=== PATIENT | male | born 1960 | race Caucasian/White ===

== ENCOUNTER 2023-10-30 20:50 | Inpatient (IN) ==
[2023-10-30] MEDS: SODIUM CHLORIDE 0.9% 1,000 ML IV ONE (21:30)
[2023-10-30 21:35] LABS: iSTAT Creatinine 2.3 mg/dl (0.6-1.3); iSTAT Hemoglobin 10.9 g/dl (14.0-18.0); iSTAT Ionized Calcium 1.13 mmol/l (1.12-1.32); iSTAT Potassium 4.7 mmol/L (3.3-5.0)
[2023-10-30] MEDS: PANTOprazole 80 MG in DEXTROSE 5% 100 ML IV ONE (21:40)
[2023-10-30 21:44] LABS: Basophils # (auto) 0.06 K/uL (0.00-0.20); Basophils % (auto) 0.4 %; Hematocrit (blood only) 36.4 % (42.0-52.0); Hemoglobin 11.6 g/dl (14.0-18.0); Immature Granulocytes % (auto) 0.7 %; Lymphocytes # (auto) 2.14 K/uL (1.20-3.40); Lymphocytes % (auto) 14.4 %; Mean Corpuscular Hemoglobin 28.4 pg (25.0-34.0); Mean Corpuscular Hgb Conc 31.9 g/dL (32.0-36.0); Mean Corpuscular Volume 89.2 fL (80.0-100.0); Mean Platelet Volume 10.4 fL (9.4-12.4); Monocytes # (auto) 1.03 K/uL (0.11-0.59); Monocytes % (auto) 6.9 %; Neutrophils # (auto) 11.53 K/uL (1.40-6.50); Neutrophils % (auto) 77.6 %; Platelet Count 217 K/uL (130-400); RDW Coefficient of Variation 14.6 % (11.5-14.5); RDW Standard Deviation 46.5 fL (36.4-46.3); Red Blood Count 4.08 M/uL (4.70-6.10); White Blood Count 14.86 K/ul (4.8-10.8)
[2023-10-30] MEDS: PANTOprazole 40 MG in DEXTROSE 5% MINI-B 100 ML IV SCH (22:01)
[2023-10-30 22:02] LABS: Albumin Level 3.5 gm/dl (3.4-5.0); BUN Creatinine Ratio 28.7 (10-20); Bilirubin,Total 0.4 mg/dl (0.2-1.0); Calcium 8.3 mg/dl (8.6-10.3); Creatinine Clr Calc Pharmacy 44.8 ml/min; Est GFR (African American) 36.7 ml/min; Est GFR (Non-African American) 31.7 ml/min; Magnesium 1.7 mg/dl (1.7-2.4); Potassium 4.8 mmol/L (3.5-5.1); Total Protein 5.6 gm/dl (6.0-8.3)
[2023-10-30 22:08] LABS: Troponin I High Sensitivity 19.8 pg/ml (0-20)
[2023-10-30] MEDS: PANTOPRAZOLE BOLUS/DRIP IV STA (22:09)
[2023-10-30 22:10] LABS: INR 1.1 (0.9-1.1); Partial Thromboplastin Ratio 0.9; Partial Thromboplastin Time 24 Seconds (21-31); Prothrombin Time 11.5 Seconds (9.0-12.0)
--- NOTE | 2023-10-30 22:59 | CT Scan Report ---
Exam(s): CT ABDOMEN + PELVIS Without Contrast EXAM: CT Abdomen and Pelvis Without Intravenous Contrast CLINICAL HISTORY: Reason for exam: ro sbo. TECHNIQUE: Axial computed tomography images of the abdomen and pelvis without intravenous contrast. CTDI is 28.12 mGy and DLP is 1576.4 mGy-cm. Automated exposure control was utilized for the study. A dose lowering technique was utilized adhering to the principles of ALARA. COMPARISON: None. FINDINGS: Lung bases: Bilateral lower lobe atelectasis, right more than left. Heart: Unremarkable. No cardiomegaly. No significant pericardial effusion. Normal cardiac size with coronary artery calcifications. ABDOMEN: Liver: Unremarkable. Gallbladder and bile ducts: Unremarkable. No calcified stones. No ductal dilation. Pancreas: Unremarkable. No ductal dilation. Spleen: Unremarkable. No splenomegaly. Adrenals: Unremarkable. No mass. Kidneys and ureters: See below. Stomach and bowel: Postoperative changes with sutures along the small bowel loops. Fluid within the colon. No obstruction. No mucosal thickening. PELVIS: Appendix: No findings to suggest acute appendicitis. Bladder: Unremarkable. No stones. Reproductive: Unremarkable as visualized. ABDOMEN and PELVIS: Intraperitoneal space: Unremarkable. No free air. No significant fluid collection. Bones/joints: Status post right-sided hip prosthesis placement. There is lucency surrounding the femoral component, clinical significance indeterminate, differential diagnosis including loosening although difficult to assess due to incomplete inclusion in the field of view. 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 Anterolisthesis of L5 on S1 (10 mm) with bilateral pars defect of L5. No acute fracture. No dislocation. Soft tissues: Unremarkable. Vasculature: Atherosclerotic disease of aorta with no aneurysm. Tiny stone versus vascular calcification within the lower pole of the left kidney measuring 1.7 mm. Otherwise normal left kidney. Normal right kidney. Lymph nodes: Unremarkable. No enlarged lymph nodes. IMPRESSION: 1. No bowel obstruction. Fluid within the colon which may be associated with sequela of enteritis versus malabsorption, correlation with history of diarrheal state recommended. 2. Vascular calcification versus tiny stone within the left kidney measuring 1.7 mm. No hydronephrosis. Remainder of abdominal viscera are unremarkable. Electronically signed by: Jade Cano MD 10/30/23 22:58 PM
[2023-10-30] MEDS: SODIUM CHLORIDE 0.9% 500 ML IV ONE (23:15)
[2023-10-30] MEDS: SODIUM CHLORIDE 0.9% 500 ML IV SCH (23:18)
--- NOTE | 2023-10-30 23:54 | History & Physical Report ---
Date of Service October 30, 2023 Assessment & Plan (1) Abdominal pain: Plan: 63-year-old male presenting with 4 weeks of intermittent abdominal pain. Patient has had multiple hospital stays in the past several weeks, uncertain of details at this point. Hypotensive on arrival now improved after IV fluids. He does have a marked leukocytosis with WBC = 14.86. Laboratory evidence of dehydration. LFTs, lipase within normal limits. CT of the abdomen suggestive of diarrheal state, no additional findings of concern Admit to medical telemetry Maintain 2 large-bore IVs Continue IV fluids with LR at 125 mL/h x 2 L Check stool BioFire panel Check random cortisol -Continue Reglan 10 mg p.o. before every meal/at bedtime (2) GIB (gastrointestinal bleeding): Plan: Report of visible blood in diarrhea by EMS. Hemoccult performed in the ER which was positive. Patient has been started on Protonix bolus and drip by the ER. He denies nausea/vomiting/abdominal pain or hematemesis. Suspect lower GI bleed, possible infection/colitis, possible diverticulosis. Hemoglobin acceptable at 11.6 Maintain 2 large-bore IVs Trend CBC every 8 hours Will continue Protonix drip for now Blood consent obtainedno need for transfusion at this point GI consultation appreciated (3) CAD (coronary artery disease): Plan: Chronic. Patient denies chest pain Will hold aspirin and Plavix for now Hold atenolol Hold lisinopril Continue rosuvastatin History of Present Illness Chief Complaint: abdominal pain Primary Care Provider: Roselyn Reich is a 63-year-old male with history of coronary artery disease status post 2 stents placed 6-7 years ago, hypertension and arthritis presenting from home with severe abdominal pain. Patient with history of strangulated hernia with resection of 6 inches of his bowel over 30 years ago. Has not had any abdominal surgeries since. Patient has been having episodes of abdominal pain intermittently over the last 4 weeks. He has had multiple hospital stays over the last 4 weeks at outside facilities. First at [facility] with subsequent transfer to [place], then at [facility] with subsequent transfer to [place] and most recently on 10/26/2023 at [facility]. No records available at this time for these hospitalizations. Patient states that he has been dealing with "blocked bowels" for the last year. He reports episodes of severe lower abdominal pain, 10/10 as well as feeling of fullness. Poor appetite and decreased oral intake. Chills and sweats as well, generalized weakness and multiple episodes of diarrhea. Patient denies obvious blood in his stool. He denies nausea/vomiting at this time but has had associated vomiting with these episodes in the past. Patient hypotensive on arrival to the ER with blood pressure of 73/48. He was administered 2 L of crystalloid fluid with improvement of blood pressure to 94/67. He was told that his diarrhea had visible blood by EMS. Hemoccult was performed which was positive ER course: Protonix bolus and drip, normal saline Allergies Allergy/AdvReac Type Severity Reaction Status Date / Time adhesive Allergy Intermediate SKIN Verified 10/30/23 21:35 IRRITATION Home Medications Medication Instructions Recorded Confirmed Type aspirin 81 mg tablet,delayed 81 mg PO DAILY 10/30/23 10/30/23 History release atenolol 25 mg tablet 25 mg PO DAILY 10/30/23 10/30/23 History clopidogrel 75 mg tablet 75 mg PO DAILY 10/30/23 10/30/23 History duloxetine 60 mg capsule,delayed 60 mg PO DAILY 10/30/23 10/30/23 History release gabapentin 100 mg capsule 100 mg PO TID 10/30/23 10/30/23 History lisinopril 5 mg tablet 10 mg PO DAILY 10/30/23 10/30/23 History metoclopramide HCl 10 mg tablet 10 mg PO ACHS 10/30/23 10/30/23 History polyethylene glycol 3350 17 17 g PO DAILY 10/30/23 10/30/23 History gram/dose oral powder (Miralax) rosuvastatin 10 mg tablet 10 mg PO HS 10/30/23 10/30/23 History sennosides 8.6 mg tablet (senna) 17.2 mg PO QPM 10/30/23 10/30/23 History Past Med/Surg History Medical History (Updated 10/31/23 @ 03:04 by Eli Rodriguez DO) SBO (small bowel obstruction) HLD (hyperlipidemia) HTN (hypertension) Surgical History (Updated 10/31/23 @ 03:01 by Eli Rodriguez DO) History of total knee arthroplasty History of total hip arthroplasty S/P colectomy Family History (Updated 10/31/23 @ 03:02 by Eli Rodriguez DO) Other Family history non-contributory Social History Smoking Status: Former smoker Feels Safe at Home: Yes Review of Systems Review of Systems: All systems reviewed & are unremarkable except as noted in HPI & below Physical Exam Physical Exam: General: patient resting comfortably, NAD, non-toxic in appearance, AA&O x 4 Skin: warm, dry, intact, no rashes or lesions HEENT: NC/AT, PERRL, EOMI, anicteric sclera, conjunctiva without injection, external ear normal to inspection and nontender, nares patent, dry mucus mem branes, dentition intact, no oropharyngeal lesions, neck supple, trachea midline, no LAD, no thyromegaly, no JVD Heart: +S1/S2, regular, no m/r/g Lungs: equal air entry bilaterally, no rales/rhonchi/wheezes Abd: +BS, soft, obese, tender in the lower abdomen without rebound/guarding, no organomegaly or ascites Ext: warm, 2+ pulses in UE/LE bilaterally, no clubbing/cyanosis or edema Neuro: nonfocal, patient AA&O x 4, speech intact, no facial droop, moving all extremities on command with equal strength 5/5 Results & Data Results & Data Vital Signs (Past 12 Hours) Vital Signs Temp Pulse Pulse Resp BP BP Pulse Ox 10/30/23 23:26 78 22 99 10/30/23 23:21 73 24 96/68 L 97 10/30/23 23:16 74 24 90/57 L 98 10/30/23 23:11 77 23 93/62 L 100 10/30/23 23:05 77 22 66/42 L 91 10/30/23 23:00 73 24 94/67 L 97 10/30/23 22:04 73 20 99 10/30/23 22:00 74 21 109/58 L 96 10/30/23 21:11 76 10/30/23 21:03 36.5 C 77 24 73/48 L 92 O2 Del Method 10/30/23 23:26 10/30/23 23:21 10/30/23 23:16 10/30/23 23:11 10/30/23 23:05 10/30/23 23:00 10/30/23 22:04 Room Air 10/30/23 22:00 Room Air 10/30/23 21:11 10/30/23 21:03 Room Air Laboratory Results Laboratory Results WBC 14.86 K/ul (4.8-10.8) H 10/30/23 21:13 RBC 4.08 M/uL (4.70-6.10) L 10/30/23 21:13 Hgb 11.6 g/dl (14.0-18.0) L 10/30/23 21:13 POC Hgb 10.9 g/dl (14.0-18.0) L 10/30/23 21:23 Hct 36.4 % (42.0-52.0) L 10/30/23 21:13 POC Hct 32 % (42-52) L 10/30/23 21:23 MCV 89.2 fL (80.0-100.0) 10/30/23 21:13 MCH 28.4 pg (25.0-34.0) 10/30/23 21:13 MCHC 31.9 g/dL (32.0-36.0) L 10/30/23 21:13 RDW Std Deviation 46.5 fL (36.4-46.3) H 10/30/23 21:13 RDW Coeff of Teresa 14.6 % (11.5-14.5) H 10/30/23 21:13 Plt Count 217 K/uL (130-400) 10/30/23 21:13 MPV 10.4 fL (9.4-12.4) 10/30/23 21:13 Immature Gran % (Auto) 0.7 % 10/30/23 21:13 Neut % (Auto) 77.6 % 10/30/23 21:13 Lymph % (Auto) 14.4 % 10/30/23 21:13 [place] % (Auto) 6.9 % 10/30/23 21:13 Eos % (Auto) 0.0 % 10/30/23 21:13 Baso % (Auto) 0.4 % 10/30/23 21:13 Neut # (Auto) 11.53 K/uL (1.40-6.50) H 10/30/23 21:13 Lymph # (Auto) 2.14 K/uL (1.20-3.40) 10/30/23 21:13 [place] # (Auto) 1.03 K/uL (0.11-0.59) H 10/30/23 21:13 Eos # (Auto) 0.00 K/uL (0.00-0.50) 10/30/23 21:13 Baso # (Auto) 0.06 K/uL (0.00-0.20) 10/30/23 21:13 Immature Gran # (Auto) 0.10 K/uL (0.01-0.20) 10/30/23 21:13 PT 11.5 Seconds (9.0-12.0) 10/30/23 21:13 INR 1.1 (0.9-1.1) 10/30/23 21:13 APTT 24 Seconds (21-31) 10/30/23 21:13 PTT Ratio 0.9 10/30/23 21:13 POC Sodium 142 mmol/L (135-144) 10/30/23 21: Sodium 142 mmol/L (136-145) 10/30/23 21:13 POC Potassium 4.7 mmol/L (3.3-5.0) 10/30/23 21:23 Potassium 4.8 mmol/L (3.5-5.1) 10/30/23 21:13 POC Chloride 110 mmol/L (101-112) 10/30/23 21: Chloride 110 mmol/L (98-107) H 10/30/23 21:13 Carbon Dioxide 22 mmol/L (21-32) 10/30/23 21:13 POC Total CO2 22 mmol/L (24-31) L 10/30/23 21:23 Anion Gap 10 (3-11) 10/30/23 21:13 POC Anion Gap 16.0 mmol/L (16-25) 10/30/23 21:23 POC BUN 58 mg/dl (7-18) H 10/30/23 21:23 BUN 62 mg/dl (6-23) H 10/30/23 21:13 Creatinine 2.16 mg/dl (0.6-1.4) H 10/30/23 21:13 POC Creatinine 2.3 mg/dl (0.6-1.3) H 10/30/23 21:23 Est Cr Clr Drug Dosing 44.8 ml/min 10/30/23 21:13 Est GFR ( Amer) 36.7 ml/min 10/30/23 21:13 Est GFR (Non-Af Amer) 31.7 ml/min 10/30/23 21:13 BUN/Creatinine Ratio 28.7 (10-20) H 10/30/23 21:13 Glucose 101 mg/dl (70-99(Fasting)) H 10/30/23 21:13 POC Glucose (other) 89 mg/dl (70-99) 10/30/23 21:23 Lactate 1.9 mmol/L (0.4-2.0) 10/30/23 22:07 Calcium 8.3 mg/dl (8.6-10.3) L 10/30/23 21:13 POC Ioniz Calcium [place] 1.13 mmol/l (1.12-1.32) 10/30/23 21:23 Magnesium 1.7 mg/dl (1.7-2.4) 10/30/23 21:13 Total Bilirubin 0.4 mg/dl (0.2-1.0) 10/30/23 21:13 Direct Bilirubin 0.0 mg/dl (0-0.2) 10/30/23 21:13 AST 11 U/L (13-39) L 10/30/23 21:13 ALT 15 U/L (7-52) 10/30/23 21:13 Alkaline Phosphatase 69 U/L (34-104) 10/30/23 21:13 Troponin I High Sens 19.8 pg/ml (0-20) 10/30/23 21:13 Total Protein 5.6 gm/dl (6.0-8.3) L 10/30/23 21:13 Albumin 3.5 gm/dl (3.4-5.0) 10/30/23 21:13 Lipase 41 U/L (11-82) 10/30/23 21:13 Urine Color Yellow 10/31/23 Unknown Urine Appearance Clear (Clear) 10/31/23 Unknown Urine pH 5.0 (4.5-7.5) 10/31/23 Unknown Ur Specific [place] 1.019 (1.000-1.030) 10/31/23 Unknown Urine Protein Trace (Negative) H 10/31/23 Unknown Urine Glucose (UA) 1+ (Negative) H 10/31/23 Unknown Urine Ketones Trace (Negative) H 10/31/23 Unknown Urine Blood Negative (Negative) 10/31/23 Unknown Urine Nitrite Negative (Negative) 10/31/23 Unknown Urine Bilirubin Negative (Negative) 10/31/23 Unknown Urine Urobilinogen Negative (Negative) 10/31/23 Unknown Ur Leukocyte Esterase Negative (Negative) 10/31/23 Unknown Urine WBC (Auto) 1-5 /hpf (0-5) 10/31/23 Unknown Urine RBC (Auto) 0-4 /hpf (0-4) 10/31/23 Unknown U Hyaline Cast (Auto) 5-10 /lpf (0-5) H 10/31/23 Unknown U Epithel Cells (Auto) 10-20 /lpf (0-5) H 10/31/23 Unknown Urine Bacteria (Auto) Negative (Negative) 10/31/23 Unknown Blood Type A Positive 10/30/23 21:13 Antibody Screen NEGATIVE 10/30/23 21:13 Impressions Abdomen/Pelvis CT 10/30/23 21:30 Exam(s): CT ABDOMEN + PELVIS Without Contrast EXAM: CT Abdomen and Pelvis Without Intravenous Contrast CLINICAL HISTORY: Reason for exam: ro sbo. TECHNIQUE: Axial computed tomography images of the abdomen and pelvis without intravenous contrast. CTDI is 28.12 mGy and DLP is 1576.4 mGy-cm. Automated exposure control was utilized for the study. A dose lowering technique was utilized adhering to the principles of ALARA. COMPARISON: None. FINDINGS: Lung bases: Bilateral lower lobe atelectasis, right more than left. Heart: Unremarkable. No cardiomegaly. No significant pericardial effusion. Normal cardiac size with coronary artery calcifications. ABDOMEN: Liver: Unremarkable. Gallbladder and bile ducts: Unremarkable. No calcified stones. No ductal dilation. Pancreas: Unremarkable. No ductal dilation. Spleen: Unremarkable. No splenomegaly. Adrenals: Unremarkable. No mass. Kidneys and ureters: See below. Stomach and bowel: Postoperative changes with sutures along the small bowel loops. Fluid within the colon. No obstruction. No mucosal thickening. PELVIS: Appendix: No findings to suggest acute appendicitis. Bladder: Unremarkable. No stones. Reproductive: Unremarkable as visualized. ABDOMEN and PELVIS: Intraperitoneal space: Unremarkable. No free air. No significant fluid collection. Bones/joints: Status post right-sided hip prosthesis placement. There is lucency surrounding the femoral component, clinical significance indeterminate, differential diagnosis including loosening although difficult to assess due to incomplete inclusion in the field of view. 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 Anterolisthesis of L5 on S1 (10 mm) with bilateral pars defect of L5. No acute fracture. No dislocation. Soft tissues: Unremarkable. Vasculature: Atherosclerotic disease of aorta with no aneurysm. Tiny stone versus vascular calcification within the lower pole of the left kidney measuring 1.7 mm. Otherwise normal left kidney. Normal right kidney. Lymph nodes: Unremarkable. No enlarged lymph nodes. IMPRESSION: 1. No bowel obstruction. Fluid within the colon which may be associated with sequela of enteritis versus malabsorption, correlation with history of diarrheal state recommended. 2. Vascular calcification versus tiny stone within the left kidney measuring 1.7 mm. No hydronephrosis. Remainder of abdominal viscera are unremarkable. Electronically signed by: Jade Cano MD 10/30/23 22:58 PM ECG Additional Comments: EKG per my interpretation with normal sinus rhythm at 77 bpm, normal axis, CO = 152, QRS = 98, QTc = 447, T wave abnormalities. No previous EKGs available for comparison PG Care Time/CCT Total # of Minutes Spent Total Time Spent with Patient: Total time spent is greater than 50% in coordination of care (as documented) at patient's floor/unit and/or counseling patient: Coding Level of Care Code 33176 INT INP/OBS CARE 3/75MIN Diagnoses Abdominal pain R10.9 GIB (gastrointestinal bleeding) K92.2 CAD (coronary artery disease) I25.10
--- NOTE | 2023-10-31 00:16 | Emergency Department Note ---
History of Present Illness General Chief complaint: Abdominal Pain Stated complaint: ABDOMINAL PAIN, GI BLEED Time Seen by Provider: 10/30/23 21:17 History of Present Illness Provider Complaint: + melena Onset (ago): 1 day(s) Pain Consistency: + constant Maximum Pain Intensity: 4 Current Pain Intensity: 4 Relieved By: + none Exacerbated By: + bowel movement Context: + history of GI bleed; no known esophageal varices or no anticoagulant use Associated symptoms: + abdominal pain; no nausea, no vomiting or no shortness of breath HPI Narrative: Patient reports he was recently admitted to [facility] for small bowel obstruction. Home Medications Medication Instructions Recorded Confirmed Type aspirin 81 mg tablet,delayed 81 mg PO DAILY 10/30/23 10/30/23 History release atenolol 25 mg tablet 25 mg PO DAILY 10/30/23 10/30/23 History clopidogrel 75 mg tablet 75 mg PO DAILY 10/30/23 10/30/23 History duloxetine 60 mg capsule,delayed 60 mg PO DAILY 10/30/23 10/30/23 History release gabapentin 100 mg capsule 100 mg PO TID 10/30/23 10/30/23 History lisinopril 5 mg tablet 10 mg PO DAILY 10/30/23 10/30/23 History metoclopramide HCl 10 mg tablet 10 mg PO ACHS 10/30/23 10/30/23 History polyethylene glycol 3350 17 17 g PO DAILY 10/30/23 10/30/23 History gram/dose oral powder (Miralax) rosuvastatin 10 mg tablet 10 mg PO HS 10/30/23 10/30/23 History sennosides 8.6 mg tablet (senna) 17.2 mg PO QPM 10/30/23 10/30/23 History Allergies Allergy/AdvReac Type Severity Reaction Status Date / Time adhesive Allergy Intermediate SKIN Verified 10/30/23 21:35 IRRITATION Past Med/Surg History Medical History SBO (small bowel obstruction) HLD (hyperlipidemia) HTN (hypertension) Surgical History S/P colectomy Social History Smoking Status: Former smoker Feels Safe at Home: Yes Physical Exam 2 Vital Signs: Vital Signs - 24 hr 10/30/23 21:03 10/30/23 21:11 10/30/23 22:00 Temperature 36.5 C Temperature Source Oral Pulse Rate 77 76 Pulse Rate [Caroti d] 74 Pulse Rhythm Regular Pulse Rhythm [Shelley tid] Regular Pulse Strength Normal Pulse Strength [Ca rotid] Normal Respiratory Rate 24 21 Respiratory Effort / Characteristics Non-Labored Non-Labored Sponta neous Respiratory Depth Normal Normal Respiratory Patter n Regular Blood Pressure 73/48 L Blood Pressure [Le ft Arm] 109/58 L Blood Pressure Rosa n 56 Blood Pressure Rosa n [Left Arm] 75 Blood Pressure Pos ition Sitting Pulse Oximetry 92 96 Oxygen Delivery Me thod Room Air Room Air Sepsis Recent Feve r Within 48 Hours No Sepsis New/Unexpla ined Change in Men lien Status N/A Sepsis Action Take n by Nursing No Action Required 10/30/23 22:04 10/30/23 23:00 10/30/23 23:05 Temperature Temperature Source Pulse Rate 73 73 77 Pulse Rate [Caroti d] Pulse Rhythm Regular Pulse Rhythm [Shelley tid] Pulse Strength Pulse Strength [Ca rotid] Respiratory Rate 20 24 22 Respiratory Effort / Characteristics Respiratory Depth Respiratory Patter n Blood Pressure 94/67 L 66/42 L Blood Pressure [Le ft Arm] Blood Pressure Rosa n 76 50 Blood Pressure Rosa n [Left Arm] Blood Pressure Pos ition Pulse Oximetry 99 97 91 Oxygen Delivery Me thod Room Air Sepsis Recent Feve r Within 48 Hours Sepsis New/Unexpla ined Change in Men lien Status Sepsis Action Take n by Nursing 10/30/23 23:11 10/30/23 23:16 10/30/23 23:21 Temperature Temperature Source Pulse Rate 77 74 73 Pulse Rate [Caroti d] Pulse Rhythm Pulse Rhythm [Shelley tid] Pulse Strength Pulse Strength [Ca rotid] Respiratory Rate 23 24 24 Respiratory Effort / Characteristics Respiratory Depth Respiratory Patter n Blood Pressure 93/62 L 90/57 L 96/68 L Blood Pressure [Le ft Arm] Blood Pressure Rosa n 72 68 77 Blood Pressure Rosa n [Left Arm] Blood Pressure Pos ition Pulse Oximetry 100 98 97 Oxygen Delivery Me thod Sepsis Recent Feve r Within 48 Hours Sepsis New/Unexpla ined Change in Men lien Status Sepsis Action Take n by Nursing 10/30/23 23:26 Temperature Temperature Source Pulse Rate 78 Pulse Rate [Caroti d] Pulse Rhythm Pulse Rhythm [Shelley tid] Pulse Strength Pulse Strength [Ca rotid] Respiratory Rate 22 Respiratory Effort / Characteristics Respiratory Depth Respiratory Patter n Blood Pressure Blood Pressure [Le ft Arm] Blood Pressure Rosa n Blood Pressure Rosa n [Left Arm] Blood Pressure Pos ition Pulse Oximetry 99 Oxygen Delivery Me thod Sepsis Recent Feve r Within 48 Hours Sepsis New/Unexpla ined Change in Men lien Status Sepsis Action Take n by Nursing Physical Exam: Physical Exam GENERAL: Ill-appearing. HENT: Exam performed. - Head: Normocephalic and atraumatic. EYES: Conjunctivae and EOM are normal. Pupils are equal, round, and reactive to light. Right eye exhibits no discharge. Left eye exhibits no discharge. No scleral icterus. NECK: Normal range of motion. Neck supple. No JVD present. CV: Normal rate, regular rhythm, normal heart sounds and intact distal pulses. There is no peripheral edema. Palpable radial pulses bue. PULM/CHEST: Effort normal and breath sounds normal. No respiratory distress. No stridor. He has no wheezes. He has no rales. ABD: The abdomen is soft. Distended. There is no tenderness. There is no rebound, no guarding. Hemoccult positive. NEURO: Motor and sensation grossly intact. SKIN: Pale. Course Course 2116: The patient was evaluated in room B8. A complete history and physical exam was performed Cardiac monitoring: An order was placed for continuous cardiac monitoring. The monitor shows a rate of 100 with sinus rhythm interpreted by me Called to bedside by nursing. Patient is hypotensive with blood pressure 72/57. Patient was moved to resuscitation bay. Large-bore IV access was obtained and IV fluid bolus was started on the patient. [id number] creatinine greater than 2. Will obtain CT of the abdomen pelvis without contrast. Patient be started on Protonix bolus and drip. 2200: Patient's blood pressure improving with IV fluids. 230: Vital signs stable. Labs show stable hemoglobin. CT of the abdomen pelvis shows no small bowel obstruction. Hemoglobin 11.6. [facility]. Administered Medications Pantoprazole Sodium 40 mg/ (Dextrose) 100 mls @ 20 mls/hr IV Q5H AMBROSE Stop: 11/29/23 21:44 Last Admin: 10/30/23 22:01 Dose: 8 mg/hr, 20 mls/hr Documented By: CHARLIE Sodium Chloride (Nss) 500 mls @ 125 mls/hr IV .Q4H AMBROSE Stop: 11/29/23 23:14 Last Admin: 10/30/23 23:18 Dose: 125 mls/hr Documented By: JOHN Discontinued Medications Sodium Chloride (Nss) 1,000 mls @ 999 mls/hr IV .Q1H1M ONE Stop: 10/30/23 22:18 Last Infusion: 10/30/23 22:31 Dose: Infused Documented By: Admin: 10/30/23 21:30 Dose: 999 mls/hr Documented By: CHARLIE Pantoprazole Sodium 80 mg/ (Dextrose) 120 mls @ 480 mls/hr IV NOW ONE Stop: 10/30/23 21:38 Last Infusion: 10/30/23 21:55 Dose: Infused Documented By: Admin: 10/30/23 21:40 Dose: 480 mls/hr Documented By: CHARLIE Sodium Chloride (Nss) 500 mls @ 999 mls/hr IV .Q31M ONE Stop: 10/30/23 23:39 Last Admin: 10/30/23 23:15 Dose: 999 mls/hr Documented By: JOHN Pantoprazole Sodium (Pantoprazole Bolus/Drip) 1 each IV NOW STA Stop: 10/30/23 21:25 Last Admin: 10/30/23 22:09 Dose: Not Given Documented By: CHARLIE Medical Decision Making Laboratory Data Attestation: I reviewed the patient's lab results. 10/30/23 21:13 10/30/23 21:13 Lab Results 10/30/23 10/30/23 10/30/23 Range/Units 21:13 21:23 22:07 WBC 14.86 H (4.8-10.8) K/ul RBC 4.08 L (4.70-6.10) M/uL Hgb 11.6 L (14.0-18.0) g/dl POC Hgb 10.9 L (14.0-18.0) g/dl Hct 36.4 L (42.0-52.0) % POC Hct 32 L (42-52) % MCV 89.2 (80.0-100.0) fL MCH 28.4 (25.0-34.0) pg MCHC 31.9 L (32.0-36.0) g/dL RDW Std Deviation 46.5 H (36.4-46.3) fL RDW Coeff of Teresa 14.6 H (11.5-14.5) % Plt Count 217 (130-400) K/uL MPV 10.4 (9.4-12.4) fL Immature Gran % (Auto) 0.7 % Neut % (Auto) 77.6 % Lymph % (Auto) 14.4 % [place] % (Auto) 6.9 % Eos % (Auto) 0.0 % Baso % (Auto) 0.4 % Neut # (Auto) 11.53 H (1.40-6.50) K/uL Lymph # (Auto) 2.14 (1.20-3.40) K/uL [place] # (Auto) 1.03 H (0.11-0.59) K/uL Eos # (Auto) 0.00 (0.00-0.50) K/uL Baso # (Auto) 0.06 (0.00-0.20) K/uL Immature Gran # (Auto) 0.10 (0.01-0.20) K/uL PT 11.5 (9.0-12.0) Seconds INR 1.1 (0.9-1.1) APTT 24 (21-31) Seconds PTT Ratio 0.9 POC Sodium 142 (135-144) mmol/L Sodium 142 (136-145) mmol/L POC Potassium 4.7 (3.3-5.0) mmol/L Potassium 4.8 (3.5-5.1) mmol/L POC Chloride 110 (101-112) mmol/L Chloride 110 H (98-107) mmol/L Carbon Dioxide 22 (21-32) mmol/L POC Total CO2 22 L (24-31) mmol/L Anion Gap 10 (3-11) POC Anion Gap 16.0 (16-25) mmol/L POC BUN 58 H (7-18) mg/dl BUN 62 H (6-23) mg/dl Creatinine 2.16 H (0.6-1.4) mg/dl POC Creatinine 2.3 H (0.6-1.3) mg/dl Est Cr Clr Drug Dosing 44.8 ml/min Est GFR ( Amer) 36.7 ml/min Est GFR (Non-Af Amer) 31.7 ml/min BUN/Creatinine Ratio 28.7 H (10-20) Glucose 101 H (70-99(Fasting)) mg/dl POC Glucose (other) 89 (70-99) mg/dl Lactate 1.9 (0.4-2.0) mmol/L Calcium 8.3 L (8.6-10.3) mg/dl POC Ioniz Calcium Edna 1.13 (1.12-1.32) mmol/l Magnesium 1.7 (1.7-2.4) mg/dl Total Bilirubin 0.4 (0.2-1.0) mg/dl Direct Bilirubin 0.0 (0-0.2) mg/dl AST 11 L (13-39) U/L ALT 15 (7-52) U/L Alkaline Phosphatase 69 (34-104) U/L Troponin I High Sens 19.8 (0-20) pg/ml Total Protein 5.6 L (6.0-8.3) gm/dl Albumin 3.5 (3.4-5.0) gm/dl Lipase 41 (11-82) U/L Blood Type A Positive Antibody Screen NEGATIVE Imaging Data Radiologist's Impression: Abdomen/Pelvis CT 10/30/23 21:30 Exam(s): CT ABDOMEN + PELVIS Without Contrast EXAM: CT Abdomen and Pelvis Without Intravenous Contrast CLINICAL HISTORY: Reason for exam: ro sbo. TECHNIQUE: Axial computed tomography images of the abdomen and pelvis without intravenous contrast. CTDI is 28.12 mGy and DLP is 1576.4 mGy-cm. Automated exposure control was utilized for the study. A dose lowering technique was utilized adhering to the principles of ALARA. COMPARISON: None. FINDINGS: Lung bases: Bilateral lower lobe atelectasis, right more than left. Heart: Unremarkable. No cardiomegaly. No significant pericardial effusion. Normal cardiac size with coronary artery calcifications. ABDOMEN: Liver: Unremarkable. Gallbladder and bile ducts: Unremarkable. No calcified stones. No ductal dilation. Pancreas: Unremarkable. No ductal dilation. Spleen: Unremarkable. No splenomegaly. Adrenals: Unremarkable. No mass. Kidneys and ureters: See below. Stomach and bowel: Postoperative changes with sutures along the small bowel loops. Fluid within the colon. No obstruction. No mucosal thickening. PELVIS: Appendix: No findings to suggest acute appendicitis. Bladder: Unremarkable. No stones. Reproductive: Unremarkable as visualized. ABDOMEN and PELVIS: Intraperitoneal space: Unremarkable. No free air. No significant fluid collection. Bones/joints: Status post right-sided hip prosthesis placement. There is lucency surrounding the femoral component, clinical significance indeterminate, differential diagnosis including loosening although difficult to assess due to incomplete inclusion in the field of view. 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 Anterolisthesis of L5 on S1 (10 mm) with bilateral pars defect of L5. No acute fracture. No dislocation. Soft tissues: Unremarkable. Vasculature: Atherosclerotic disease of aorta with no aneurysm. Tiny stone versus vascular calcification within the lower pole of the left kidney measuring 1.7 mm. Otherwise normal left kidney. Normal right kidney. Lymph nodes: Unremarkable. No enlarged lymph nodes. IMPRESSION: 1. No bowel obstruction. Fluid within the colon which may be associated with sequela of enteritis versus malabsorption, correlation with history of diarrheal state recommended. 2. Vascular calcification versus tiny stone within the left kidney measuring 1.7 mm. No hydronephrosis. Remainder of abdominal viscera are unremarkable. Electronically signed by: Jade Cano MD 10/30/23 22:58 PM ECG Data Attestation: I personally reviewed and interpreted this ECG as follows: Rate (beats per minute): 77 Rhythm: normal sinus Findings: + T-wave inversion (Leads II, III and aVF); no ST depression, no ST elevation or no prolonged QT MDM Narrative 2117: The patient was evaluated in room B8. A complete history and physical exam was performed Cardiac monitoring: An order was placed for continuous cardiac monitoring. The monitor shows a rate of 100 with sinus rhythm interpreted by me Called to bedside by nursing. Patient is hypotensive with blood pressure 72/57. Patient was moved to resuscitation bay. Large-bore IV access was obtained and IV fluid bolus was started on the patient. [id number] creatinine greater than 2. Will obtain CT of the abdomen pelvis without contrast. Patient be started on Protonix bolus and drip. 2200: Patient's blood pressure improving with IV fluids. 2305: Vital signs stable. Labs show stable hemoglobin. CT of the abdomen pelvis shows no small bowel obstruction. Hemoglobin 11.6. [facility]. Impression & Plan GIB (gastrointestinal bleeding) Critical Care Time Critical Care Time: Yes Total Critical Care Time: 62 I have personally spent greater than 62 minutes of critical care time in the direct management of this patient. This includes bedside care, interpretation of diagnostic studies, and testing, discussion with consultants, patient, and family members, and other required patient management activities. This 62 minutes is in excess of all separately billable procedures. Discharge Plan Visit Data Chief Complaint: Abdominal Pain Stated Complaint: ABDOMINAL PAIN, GI BLEED ED Provider: Wil Brady Discharge Problem: GIB (gastrointestinal bleeding) Patient Disposition: Admitted As Inpatient Forms Stand Alone Forms: [facility] Prescriptions Prescriptions: No Action sennosides [senna] 8.6 mg tablet 17.2 mg PO QPM atenolol 25 mg tablet 25 mg PO DAILY clopidogrel 75 mg tablet 75 mg PO DAILY aspirin 81 mg tablet,delayed release (DR/EC) 81 mg PO DAILY lisinopril 5 mg tablet 10 mg PO DAILY gabapentin 100 mg capsule 100 mg PO TID polyethylene glycol 3350 [Miralax] 17 gram/dose Powder 17 g PO DAILY metoclopramide HCl 10 mg tablet 10 mg PO ACHS rosuvastatin 10 mg tablet 10 mg PO HS duloxetine 60 mg capsule,delayed release(DR/EC) 60 mg PO DAILY Referrals Referrals: Roselyn Lange PA-C [Primary Care Provider] -
[2023-10-31 01:40] LABS: Appearance Urine Clear (Clear); Bacteria Urine Automated Negative (Negative); Bilirubin Urine Negative (Negative); Blood Urine Negative (Negative); Color Urine Yellow; Glucose Urine UA 1+ (Negative); Ketones Urine Trace (Negative); Leukocyte Esterase Urine Negative (Negative); Nitrite Urine Negative (Negative); Protein Urine Trace (Negative); RBC Urine Automated 0-4 /hpf (0-4); Specific Gravity Urine 1.019 (1.000-1.030); Urobilinogen Urine Negative (Negative)
[2023-10-31] MEDS ORDERED: ONDANSETRON INJ 2 MG/ML 2 ML VIAL IV PRN (02:55)
[2023-10-31] MEDS: LACTATED RINGER'S 1,000 ML IV SCH (04:20)
[2023-10-31 04:48] LABS: Hematocrit (blood only) 31.2 % (42.0-52.0); Mean Corpuscular Hemoglobin 28.3 pg (25.0-34.0); Mean Corpuscular Hgb Conc 32.1 g/dL (32.0-36.0); Mean Corpuscular Volume 88.4 fL (80.0-100.0); Mean Platelet Volume 10.4 fL (9.4-12.4); Platelet Count 159 K/uL (130-400); RDW Coefficient of Variation 14.6 % (11.5-14.5); RDW Standard Deviation 46.5 fL (36.4-46.3); Red Blood Count 3.53 M/uL (4.70-6.10); White Blood Count 10.29 K/ul (4.8-10.8)
[2023-10-31 05:00] LABS: BUN Creatinine Ratio 40.5 (10-20); Calcium 7.8 mg/dl (8.6-10.3); Creatinine Clr Calc Pharmacy 52.3 ml/min; Est GFR (African American) 44.2 ml/min; Est GFR (Non-African American) 38.2 ml/min; Potassium 4.7 mmol/L (3.5-5.1)
--- NOTE | 2023-10-31 07:43 | XRay Report ---
XR chest 1V portable CLINICAL HISTORY: vomitting TECHNIQUE: Single frontal radiograph of the chest was obtained. Comparison: None available at the time of this dictation. FINDINGS: No lines and tubes are seen. The cardiomediastinal silhouette is normal. Lungs are underinflated but clear. No evidence of pleural effusion or pneumothorax. IMPRESSION: No acute chest disease. ACT 112: Negative or not required by law. Electronically signed by: Dieter Poon M.D. 10/31/2023 7:42 AM
[2023-10-31] MEDS: METOCLOPRAMIDE HCL 10 MG TABLET PO SCH (08:31)
[2023-10-31] MEDS: GABAPENTIN 100 MG CAP PO SCH (08:32)
[2023-10-31] MEDS: DULoxetine HCL 60 MG CAP PO SCH (08:32)
[2023-10-31 13:00] LABS: Hematocrit (blood only) 30.9 % (42.0-52.0); Hemoglobin 9.9 g/dl (14.0-18.0); Mean Corpuscular Hemoglobin 28.1 pg (25.0-34.0); Mean Corpuscular Volume 87.8 fL (80.0-100.0); Mean Platelet Volume 10.4 fL (9.4-12.4); Platelet Count 165 K/uL (130-400); RDW Coefficient of Variation 14.7 % (11.5-14.5); RDW Standard Deviation 46.7 fL (36.4-46.3); Red Blood Count 3.52 M/uL (4.70-6.10); White Blood Count 10.53 K/ul (4.8-10.8)
[2023-10-31 15:10] LABS: Adenovirus F 40/41 PCR Not Detected (NotDetected); Astrovirus PCR Not Detected (NotDetected); Campylobacter PCR Not Detected (NotDetected); Cryptosporidium PCR Not Detected (NotDetected); Cyclospora cayetanensis PCR Not Detected (NotDetected); Entamoeba histolytica PCR Not Detected (NotDetected); Enteroaggregative E.coli(EAEC) Not Detected (NotDetected); Enteropathogenic E.coli (EPEC) Not Detected (NotDetected); Enterotoxigenic E.coli (ETEC) Not Detected (NotDetected); Giardia lamblia PCR Not Detected (NotDetected); Norovirus GI/GII PCR Not Detected (NotDetected); Plesiomonas shigelloides PCR Not Detected (NotDetected); Rotavirus A PCR Not Detected (NotDetected); Salmonella PCR Not Detected (NotDetected); Sapovirus PCR Not Detected (NotDetected); Shiga-like Toxin E.coli (STEC) Not Detected (NotDetected); Shigella/Enteroinvasive E.coli Not Detected (NotDetected); Vibrio cholerae PCR Not Detected (NotDetected); Vibrio species PCR Not Detected (NotDetected); Yersinia enterocolitica PCR Not Detected (NotDetected)
--- NOTE | 2023-10-31 16:51 | Gastrointestinal Consultation ---
Date of Consultation October 31, 2023 Assessment & Plan (1) Abdominal pain: Pleasant man with over 1 1/2 years of churning abdominal pain with nausea and vomiting who has been in multiple hospitals without an answer. I don't really have a feel for what is going on and really would like to know what has been done to him on all of these hospitalizations and visits to his PCP. I do think he will need EGD and colonoscopy but he took plavix up until yesterday. I think we need to give the plavix a few days to wear off before proceeding. I would like to know if he really has had a small bowel series because I do think that will be important in his evaluation. History of Present Illness Reason for Consultation: ? lower GI bleed Attending Physician: Jenny Rain MD History of Present Illness 63 year old man who says he has been "battling his stomach" for a year and a half. He has been in four different hospitals for this but despite having stomach issues has never seen a kit planner for this problem. He describes a "churning" in his stomach that gets so bad he just can't take it. With this he feels like his stools are loose. Blood was found in his stool in the ED. He says he will also get nauseated and then on occasion will vomit with this issue. Initially it wasn't every day but now it has progressed to where he feels like it is daily. He has lost 20# with this. He says he "can't eat like he used to" because he gets sick. He also feels like he has a fever when he lays down and then he gets chills and sweats. He has had multiple CT scans and describes what sounds like an UGI with SBFT that he says was normal. He takes plavix daily for clots. He does not have records with him and does not have a good understanding of what has been done for him in the past. He did have to have "6 inches" of his small bowel removed for an incarcerated hernia in the past. CT in the ER was not conclusive as to etiology for his pain. Allergies Allergy/AdvReac Type Severity Reaction Status Date / Time adhesive Allergy Intermediate SKIN Verified 10/30/23 21:35 IRRITATION Home Medications Medication Instructions Recorded Confirmed Type aspirin 81 mg tablet,delayed 81 mg PO DAILY 10/30/23 10/30/23 History release atenolol 25 mg tablet 25 mg PO DAILY 10/30/23 10/30/23 History clopidogrel 75 mg tablet 75 mg PO DAILY 10/30/23 10/30/23 History duloxetine 60 mg capsule,delayed 60 mg PO DAILY 10/30/23 10/30/23 History release gabapentin 100 mg capsule 100 mg PO TID 10/30/23 10/30/23 History lisinopril 5 mg tablet 10 mg PO DAILY 10/30/23 10/30/23 History metoclopramide HCl 10 mg tablet 10 mg PO ACHS 10/30/23 10/30/23 History polyethylene glycol 3350 17 17 g PO DAILY 10/30/23 10/30/23 History gram/dose oral powder (Miralax) rosuvastatin 10 mg tablet 10 mg PO HS 10/30/23 10/30/23 History sennosides 8.6 mg tablet (senna) 17.2 mg PO QPM 10/30/23 10/30/23 History Patient History Medical History SBO (small bowel obstruction) HLD (hyperlipidemia) HTN (hypertension) Surgical History History of total knee arthroplasty History of total hip arthroplasty S/P colectomy Family History Other Family history non-contributory Social History Smoking Status: Former smoker Communication Ability: Effective Feels Safe at Home: Yes Assistive Devices: Crutches Review of Systems Review of Systems: All systems reviewed & are unremarkable except as noted in HPI & below Physical Exam Constitutional: WD/WN, vitals as above Neck: trachea midline, no thyromegaly Respiratory: normal respiratory effort, lungs clear to auscultation Cardiovascular: RRR, no murmur, no edema Gastrointestinal (Abdomen): normal bowel sounds, soft, nontender, no hepatosplenomegaly Results & Data Vital Signs (Past 12 Hours) Vital Signs Pulse Pulse Resp BP BP Pulse Ox O2 Del Method 10/31/23 16:46 74 15 135/84 100 10/31/23 13:00 70 14 122/68 98 Room Air 10/31/23 08:37 68 19 137/84 95 Room Air 10/31/23 07:12 68 10/31/23 06:42 62 18 103/60 98 Room Air 10/31/23 05:00 68 19 115/83 Laboratory Results 10/31/23 10/31/23 10/31/23 Range/Units Unknown 13:04 12:36 WBC 10.53 (4.8-10.8) K/ul RBC 3.52 L (4.70-6.10) M/uL Hgb 9.9 L (14.0-18.0) g/dl POC Hgb (14.0-18.0) g/dl Hct 30.9 L (42.0-52.0) % POC Hct (42-52) % MCV 87.8 (80.0-100.0) fL MCH 28.1 (25.0-34.0) pg MCHC 32.0 (32.0-36.0) g/dL RDW Std Deviation 46.7 H (36.4-46.3) fL RDW Coeff of Teresa 14.7 H (11.5-14.5) % Plt Count 165 (130-400) K/uL MPV 10.4 (9.4-12.4) fL Immature Gran % (Auto) % Neut % (Auto) % Lymph % (Auto) % [place] % (Auto) % Eos % (Auto) % Baso % (Auto) % Neut # (Auto) (1.40-6.50) K/uL Lymph # (Auto) (1.20-3.40) K/uL [place] # (Auto) (0.11-0.59) K/uL Eos # (Auto) (0.00-0.50) K/uL Baso # (Auto) (0.00-0.20) K/uL Immature Gran # (Auto) (0.01-0.20) K/uL PT (9.0-12.0) Seconds INR (0.9-1.1) APTT (21-31) Seconds PTT Ratio POC Sodium (135-144) mmol/L Sodium (136-145) mmol/L POC Potassium (3.3-5.0) mmol/L Potassium (3.5-5.1) mmol/L POC Chloride (101-112) mmol/L Chloride (98-107) mmol/L Carbon Dioxide (21-32) mmol/L POC Total CO2 (24-31) mmol/L Anion Gap (3-11) POC Anion Gap (16-25) mmol/L POC BUN (7-18) mg/dl BUN (6-23) mg/dl Creatinine (0.6-1.4) mg/dl POC Creatinine (0.6-1.3) mg/dl Est Cr Clr Drug Dosing ml/min Est GFR ( Amer) ml/min Est GFR (Non-Af Amer) ml/min BUN/Creatinine Ratio (10-20) Glucose (70-99(Fasting)) mg/dl POC Glucose (other) (70-99) mg/dl Lactate (0.4-2.0) mmol/L Calcium (8.6-10.3) mg/dl POC Ioniz Calcium [place] (1.12-1.32) mmol/l Magnesium (1.7-2.4) mg/dl Total Bilirubin (0.2-1.0) mg/dl Direct Bilirubin (0-0.2) mg/dl AST (13-39) U/L ALT (7-52) U/L Alkaline Phosphatase (34-104) U/L Troponin I High Sens (0-20) pg/ml Total Protein (6.0-8.3) gm/dl Albumin (3.4-5.0) gm/dl Lipase (11-82) U/L Random Cortisol mcg/dl Urine Color Yellow Urine Appearance Clear (Clear) Urine pH 5.0 (4.5-7.5) Ur Specific [place] 1.019 (1.000-1.030) Urine Protein Trace H (Negative) Urine Glucose (UA) 1+ H (Negative) Urine Ketones Trace H (Negative) Urine Blood Negative (Negative) Urine Nitrite Negative (Negative) Urine Bilirubin Negative (Negative) Urine Urobilinogen Negative (Negative) Ur Leukocyte Esterase Negative (Negative) Urine WBC (Auto) 1-5 (0-5) /hpf Urine RBC (Auto) 0-4 (0-4) /hpf U Hyaline Cast (Auto) 5-10 H (0-5) /lpf U Epithel Cells (Auto) 10-20 H (0-5) /lpf Urine Bacteria (Auto) Negative (Negative) Stl C. cayetanensis PCR Not Detected (NotDetected) Stool Rotavirus A PCR Not Detected (NotDetected) Stl Adenov F 40/41 PCR Not Detected (NotDetected) Stool Astrovirus (PCR) Not Detected (NotDetected) Stool Campylobacter PCR Not Detected (NotDetected) Stl C. diff Tox B Gene Negative Cdiff Gene (Neg) Stool Cryptosporidium PCR Not Detected (NotDetected) Stl E.coli Shiga Tox PCR Not Detected (NotDetected) Stl Enterotoxigenic E PCR Not Detected (NotDetected) Stool EPEC (PCR) Not Detected (NotDetected) Stool EAEC (PCR) Not Detected (NotDetected) Stl E. histolytica PCR Not Detected (NotDetected) Stool Giardia Lamblia PCR Not Detected (NotDetected) Stool Salmonella PCR Not Detected (NotDetected) Stool Sapovirus (PCR) Not Detected (NotDetected) Stl P. shigelloides PCR Not Detected (NotDetected) Stl Shigella/EIEC PCR Not Detected (NotDetected) St Y.enterocolitica PCR Not Detected (NotDetected) Stool Vibrio (PCR) Not Detected (NotDetected) Stl Vibrio cholerae PCR Not Detected (NotDetected) Stl Norovirus GI/GII PCR Not Detected (NotDetected) Blood Type Antibody Screen 10/31/23 10/30/23 10/30/23 Range/Units 04:34 22:07 21:23 WBC 10.29 (4.8-10.8) K/ul RBC 3.53 L (4.70-6.10) M/uL Hgb 10.0 L (14.0-18.0) g/dl POC Hgb 10.9 L (14.0-18.0) g/dl Hct 31.2 L (42.0-52.0) % POC Hct 32 L (42-52) % MCV 88.4 (80.0-100.0) fL MCH 28.3 (25.0-34.0) pg MCHC 32.1 (32.0-36.0) g/dL RDW Std Deviation 46.5 H (36.4-46.3) fL RDW Coeff of Teresa 14.6 H (11.5-14.5) % Plt Count 159 (130-400) K/uL MPV 10.4 (9.4-12.4) fL Immature Gran % (Auto) % Neut % (Auto) % Lymph % (Auto) % [place] % (Auto) % Eos % (Auto) % Baso % (Auto) % Neut # (Auto) (1.40-6.50) K/uL Lymph # (Auto) (1.20-3.40) K/uL [place] # (Auto) (0.11-0.59) K/uL Eos # (Auto) (0.00-0.50) K/uL Baso # (Auto) (0.00-0.20) K/uL Immature Gran # (Auto) (0.01-0.20) K/uL PT (9.0-12.0) Seconds INR (0.9-1.1) APTT (21-31) Seconds PTT Ratio POC Sodium 142 (135-144) mmol/L Sodium 141 (136-145) mmol/L POC Potassium 4.7 (3.3-5.0) mmol/L Potassium 4.7 (3.5-5.1) mmol/L POC Chloride 110 (101-112) mmol/L Chloride 114 H (98-107) mmol/L Carbon Dioxide 20 L (21-32) mmol/L POC Total CO2 22 L (24-31) mmol/L Anion Gap 7 (3-11) POC Anion Gap 16.0 (16-25) mmol/L POC BUN 58 H (7-18) mg/dl BUN 75 H (6-23) mg/dl Creatinine 1.85 H D (0.6-1.4) mg/dl POC Creatinine 2.3 H (0.6-1.3) mg/dl Est Cr Clr Drug Dosing 52.3 ml/min Est GFR ( Amer) 44.2 ml/min Est GFR (Non-Af Amer) 38.2 ml/min BUN/Creatinine Ratio 40.5 H (10-20) Glucose 81 (70-99(Fasting)) mg/dl POC Glucose (other) 89 (70-99) mg/dl Lactate 1.9 (0.4-2.0) mmol/L Calcium 7.8 L (8.6-10.3) mg/dl POC Ioniz Calcium Edna 1.13 (1.12-1.32) mmol/l Magnesium (1.7-2.4) mg/dl Total Bilirubin (0.2-1.0) mg/dl Direct Bilirubin (0-0.2) mg/dl AST (13-39) U/L ALT (7-52) U/L Alkaline Phosphatase (34-104) U/L Troponin I High Sens (0-20) pg/ml Total Protein (6.0-8.3) gm/dl Albumin (3.4-5.0) gm/dl Lipase (11-82) U/L Random Cortisol 10.86 mcg/dl Urine Color Urine Appearance (Clear) Urine pH (4.5-7.5) Ur Specific [place] (1.000-1.030) Urine Protein (Negative) Urine Glucose (UA) (Negative) Urine Ketones (Negative) Urine Blood (Negative) Urine Nitrite (Negative) Urine Bilirubin (Negative) Urine Urobilinogen (Negative) Ur Leukocyte Esterase (Negative) Urine WBC (Auto) (0-5) /hpf Urine RBC (Auto) (0-4) /hpf U Hyaline Cast (Auto) (0-5) /lpf U Epithel Cells (Auto) (0-5) /lpf Urine Bacteria (Auto) (Negative) Stl C. cayetanensis PCR (NotDetected) Stool Rotavirus A PCR (NotDetected) Stl Adenov F 40/41 PCR (NotDetected) Stool Astrovirus (PCR) (NotDetected) Stool Campylobacter PCR (NotDetected) Stl C. diff Tox B Gene (Neg) Stool Cryptosporidium PCR (NotDetected) Stl E.coli Shiga Tox PCR (NotDetected) Stl Enterotoxigenic E PCR (NotDetected) Stool EPEC (PCR) (NotDetected) Stool EAEC (PCR) (NotDetected) Stl E. histolytica PCR (NotDetected) Stool Giardia Lamblia PCR (NotDetected) Stool Salmonella PCR (NotDetected) Stool Sapovirus (PCR) (NotDetected) Stl P. shigelloides PCR (NotDetected) Stl Shigella/EIEC PCR (NotDetected) St Y.enterocolitica PCR (NotDetected) Stool Vibrio (PCR) (NotDetected) Stl Vibrio cholerae PCR (NotDetected) Stl Norovirus GI/GII PCR (NotDetected) Blood Type Antibody Screen 10/30/23 Range/Units 21:13 WBC 14.86 H (4.8-10.8) K/ul RBC 4.08 L (4.70-6.10) M/uL Hgb 11.6 L (14.0-18.0) g/dl POC Hgb (14.0-18.0) g/dl Hct 36.4 L (42.0-52.0) % POC Hct (42-52) % MCV 89.2 (80.0-100.0) fL MCH 28.4 (25.0-34.0) pg MCHC 31.9 L (32.0-36.0) g/dL RDW Std Deviation 46.5 H (36.4-46.3) fL RDW Coeff of Teresa 14.6 H (11.5-14.5) % Plt Count 217 (130-400) K/uL MPV 10.4 (9.4-12.4) fL Immature Gran % (Auto) 0.7 % Neut % (Auto) 77.6 % Lymph % (Auto) 14.4 % [place] % (Auto) 6.9 % Eos % (Auto) 0.0 % Baso % (Auto) 0.4 % Neut # (Auto) 11.53 H (1.40-6.50) K/uL Lymph # (Auto) 2.14 (1.20-3.40) K/uL [place] # (Auto) 1.03 H (0.11-0.59) K/uL Eos # (Auto) 0.00 (0.00-0.50) K/uL Baso # (Auto) 0.06 (0.00-0.20) K/uL Immature Gran # (Auto) 0.10 (0.01-0.20) K/uL PT 11.5 (9.0-12.0) Seconds INR 1.1 (0.9-1.1) APTT 24 (21-31) Seconds PTT Ratio 0.9 POC Sodium (135-144) mmol/L Sodium 142 (136-145) mmol/L POC Potassium (3.3-5.0) mmol/L Potassium 4.8 (3.5-5.1) mmol/L POC Chloride (101-112) mmol/L Chloride 110 H (98-107) mmol/L Carbon Dioxide 22 (21-32) mmol/L POC Total CO2 (24-31) mmol/L Anion Gap 10 (3-11) POC Anion Gap (16-25) mmol/L POC BUN (7-18) mg/dl BUN 62 H (6-23) mg/dl Creatinine 2.16 H (0.6-1.4) mg/dl POC Creatinine (0.6-1.3) mg/dl Est Cr Clr Drug Dosing 44.8 ml/min Est GFR ( Amer) 36.7 ml/min Est GFR (Non-Af Amer) 31.7 ml/min BUN/Creatinine Ratio 28.7 H (10-20) Glucose 101 H (70-99(Fasting)) mg/dl POC Glucose (other) (70-99) mg/dl Lactate (0.4-2.0) mmol/L Calcium 8.3 L (8.6-10.3) mg/dl POC Ioniz Calcium Edna (1.12-1.32) mmol/l Magnesium 1.7 (1.7-2.4) mg/dl Total Bilirubin 0.4 (0.2-1.0) mg/dl Direct Bilirubin 0.0 (0-0.2) mg/dl AST 11 L (13-39) U/L ALT 15 (7-52) U/L Alkaline Phosphatase 69 (34-104) U/L Troponin I High Sens 19.8 (0-20) pg/ml Total Protein 5.6 L (6.0-8.3) gm/dl Albumin 3.5 (3.4-5.0) gm/dl Lipase 41 (11-82) U/L Random Cortisol mcg/dl Urine Color Urine Appearance (Clear) Urine pH (4.5-7.5) Ur Specific [place] (1.000-1.030) Urine Protein (Negative) Urine Glucose (UA) (Negative) Urine Ketones (Negative) Urine Blood (Negative) Urine Nitrite (Negative) Urine Bilirubin (Negative) Urine Urobilinogen (Negative) Ur Leukocyte Esterase (Negative) Urine WBC (Auto) (0-5) /hpf Urine RBC (Auto) (0-4) /hpf U Hyaline Cast (Auto) (0-5) /lpf U Epithel Cells (Auto) (0-5) /lpf Urine Bacteria (Auto) (Negative) Stl C. cayetanensis PCR (NotDetected) Stool Rotavirus A PCR (NotDetected) Stl Adenov F 40/41 PCR (NotDetected) Stool Astrovirus (PCR) (NotDetected) Stool Campylobacter PCR (NotDetected) Stl C. diff Tox B Gene (Neg) Stool Cryptosporidium PCR (NotDetected) Stl E.coli Shiga Tox PCR (NotDetected) Stl Enterotoxigenic E PCR (NotDetected) Stool EPEC (PCR) (NotDetected) Stool EAEC (PCR) (NotDetected) Stl E. histolytica PCR (NotDetected) Stool Giardia Lamblia PCR (NotDetected) Stool Salmonella PCR (NotDetected) Stool Sapovirus (PCR) (NotDetected) Stl P. shigelloides PCR (NotDetected) Stl Shigella/EIEC PCR (NotDetected) St Y.enterocolitica PCR (NotDetected) Stool Vibrio (PCR) (NotDetected) Stl Vibrio cholerae PCR (NotDetected) Stl Norovirus GI/GII PCR (NotDetected) Blood Type A Positive Antibody Screen NEGATIVE Diagnostic Findings Chest X-Ray 10/30/23 21:18 XR chest 1V portable CLINICAL HISTORY: vomitting TECHNIQUE: Single frontal radiograph of the chest was obtained. Comparison: None available at the time of this dictation. FINDINGS: No lines and tubes are seen. The cardiomediastinal silhouette is normal. Lungs are underinflated but clear. No evidence of pleural effusion or pneumothorax. IMPRESSION: No acute chest disease. ACT 112: Negative or not required by law. Electronically signed by: Dieter Poon M.D. 10/31/2023 7:42 AM Abdomen/Pelvis CT 10/30/23 21:30 Exam(s): CT ABDOMEN + PELVIS Without Contrast EXAM: CT Abdomen and Pelvis Without Intravenous Contrast CLINICAL HISTORY: Reason for exam: ro sbo. TECHNIQUE: Axial computed tomography images of the abdomen and pelvis without intravenous contrast. CTDI is 28.12 mGy and DLP is 1576.4 mGy-cm. Automated exposure control was utilized for the study. A dose lowering technique was utilized adhering to the principles of ALARA. COMPARISON: None. FINDINGS: Lung bases: Bilateral lower lobe atelectasis, right more than left. Heart: Unremarkable. No cardiomegaly. No significant pericardial effusion. Normal cardiac size with coronary artery calcifications. ABDOMEN: Liver: Unremarkable. Gallbladder and bile ducts: Unremarkable. No calcified stones. No ductal dilation. Pancreas: Unremarkable. No ductal dilation. Spleen: Unremarkable. No splenomegaly. Adrenals: Unremarkable. No mass. Kidneys and ureters: See below. Stomach and bowel: Postoperative changes with sutures along the small bowel loops. Fluid within the colon. No obstruction. No mucosal thickening. PELVIS: Appendix: No findings to suggest acute appendicitis. Bladder: Unremarkable. No stones. Reproductive: Unremarkable as visualized. ABDOMEN and PELVIS: Intraperitoneal space: Unremarkable. No free air. No significant fluid collection. Bones/joints: Status post right-sided hip prosthesis placement. There is lucency surrounding the femoral component, clinical significance indeterminate, differential diagnosis including loosening although difficult to assess due to incomplete inclusion in the field of view. 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 Anterolisthesis of L5 on S1 (10 mm) with bilateral pars defect of L5. No acute fracture. No dislocation. Soft tissues: Unremarkable. Vasculature: Atherosclerotic disease of aorta with no aneurysm. Tiny stone versus vascular calcification within the lower pole of the left kidney measuring 1.7 mm. Otherwise normal left kidney. Normal right kidney. Lymph nodes: Unremarkable. No enlarged lymph nodes. IMPRESSION: 1. No bowel obstruction. Fluid within the colon which may be associated with sequela of enteritis versus malabsorption, correlation with history of diarrheal state recommended. 2. Vascular calcification versus tiny stone within the left kidney measuring 1.7 mm. No hydronephrosis. Remainder of abdominal viscera are unremarkable. Electronically signed by: Jade Cano MD 10/30/23 22:58 PM
--- NOTE | 2023-10-31 17:49 | Hospitalist Progress Note ---
Date of Service October 31, 2023 Assessment & Plan (1) Abdominal pain: Plan: 63-year-old male presenting with 4 weeks of intermittent abdominal pain. Patient has had multiple hospital stays in the past several weeks, uncertain of details at this point but patient reports having bowel obstructions requiring NG tube. Hypotensive on arrival now improved after IV fluids. He does have a marked leukocytosis with WBC = 14.86 which is now resolved with IV fluids-he has not received any antibiotics. Laboratory evidence of dehydration. LFTs, lipase within normal limits. CT of the abdomen suggestive of diarrheal state, no additional findings of concern, specifically no obstruction or colitis Stool bio fire is negative as is C. difficile. Improving clinically, no need for antibiotics at this time Continue IV fluids Advance diet to clear liquids Appreciate GI consultation-plan for EGD and colonoscopy when off of Plavix given GI bleeding Discontinue Reglan, senna given his ongoing diarrhea Awaiting outside records to be obtained Check mesenteric Doppler to look for mesenteric artery stenosis (2) GIB (gastrointestinal bleeding): Plan: With acute blood loss anemia Report of visible blood in diarrhea by EMS. Hemoccult performed in the ER which was positive. Patient has been started on Protonix bolus and drip by the ER. Denies hematemesis. Suspect lower GI bleed, no evidence of colitis on CT at this time but could have ischemic colitis given significant hypotension on admission Hemoglobin has now dropped to 10.0-will continue to follow CBC Consult GI Continue to hold aspirin and Plavix Okay to advance diet to clear liquids Transfuse as needed-consent obtained (3) ROME (acute kidney injury): Plan: Creatinine up to 2.1 on admission, no baseline creatinine to follow but creatinine is down 1.85 today with IV fluid hydration He is voiding Follow BMP Hold home lisinopril (4) CAD (coronary artery disease): Plan: Chronic. With history of 2 stents in 2018 at [facility]. Patient denies chest pain Will hold aspirin and Plavix for now, then can likely restart only aspirin as it has been many years since his stent placement ECG with T wave inversions in lateral leads, no previous EKG to compare to. Troponin normal at 19 on admission Hold atenolol and lisinopril due to hypotension and renal failure Continue rosuvastatin Check echocardiogram (5) Acute blood loss anemia: Plan: As above (6) Obesity: Plan: Morbid obesity with BMI 40.5 Plan Disposition-continued stay Admission and Anticipated Discharge Date Admission Date: October 30, 2023 Subjective Patient reports feeling better today, no abdominal pains, no further nausea. Has had 2 loose stools a day for weeks and he was put on Senokot, Reglan, and MiraLAX but he is not taking the MiraLAX. He does recall having an elevated white blood cell count, kidney issues from dehydration, and bowel obstructions multiple times in the last couple of months during his various hospitalizations. I did not yet have his outside records for review. He reports a remote history of bowel resection during a ventral hernia with what sounds like strangulated bowel. He has required NG tube for bowel obstruction at some of his recent hospitalizations. When he has the abdominal pain, it is in the mid abdomen and radiates through to the bilateral flanks. It is associated with nausea and sometimes vomiting. Physical Exam Constitutional: WD/WN, vitals as above + obese ENMT: external ear and nose normal, oropharynx normal Neck: trachea midline, no thyromegaly Respiratory: normal respiratory effort, lungs clear to auscultation Cardiovascular: RRR, no murmur, no edema Chest (Breasts): Chest: normal inspection of chest Gastrointestinal (Abdomen): normal bowel sounds, soft, nontender, no hepatosplenomegaly Musculoskeletal: Extremities: extremities normal to inspection; no cyanosis and no clubbing Skin: no rashes, warm and dry Neurologic: moves all extremities and awake; no focal motor deficits Psychiatric: A+Ox3, euthymic affect Lymphatic: no lymphedema Results & Data Results & Data Vital Signs (Past 12 Hours) Vital Signs Pulse Pulse Resp BP Pulse Ox O2 Del Method 10/31/23 16:46 74 15 135/84 100 10/31/23 13:00 70 14 122/68 98 Room Air 10/31/23 08:37 68 19 137/84 95 Room Air 10/31/23 07:12 68 10/31/23 06:42 62 18 103/60 98 Room Air Laboratory Results CBC, BMP, cortisol level, lactate, troponin, LFTs, blood cultures reviewed PG Care Time/CCT Total # of Minutes Spent Total Time Spent with Patient: Total time spent is greater than 50% in coordination of care (as documented) at patient's floor/unit and/or counseling patient: Coding Level of Care Code 82405 SUB INP/OBS CARE 3/50MIN Diagnoses Abdominal pain R10.9 GIB (gastrointestinal bleeding) K92.2 ROME (acute kidney injury) N17.9 CAD (coronary artery disease) I25.10 Acute blood loss anemia D62 Obesity E66.9
[2023-10-31] MEDS: ROSUVASTATIN CALCIUM 10 MG TAB PO SCH (21:12)
[2023-11-01 05:14] LABS: Basophils # (auto) 0.02 K/uL (0.00-0.20); Basophils % (auto) 0.3 %; Eosinophils # (auto) 0.18 K/uL (0.00-0.50); Hematocrit (blood only) 27.1 % (42.0-52.0); Hemoglobin 8.8 g/dl (14.0-18.0); Immature Granulocytes # (auto) 0.01 K/uL (0.01-0.20); Immature Granulocytes % (auto) 0.2 %; Lymphocytes # (auto) 1.42 K/uL (1.20-3.40); Lymphocytes % (auto) 23.4 %; Mean Corpuscular Hemoglobin 28.5 pg (25.0-34.0); Mean Corpuscular Hgb Conc 32.5 g/dL (32.0-36.0); Mean Corpuscular Volume 87.7 fL (80.0-100.0); Mean Platelet Volume 10.8 fL (9.4-12.4); Monocytes # (auto) 0.29 K/uL (0.11-0.59); Monocytes % (auto) 4.8 %; Neutrophils # (auto) 4.15 K/uL (1.40-6.50); Neutrophils % (auto) 68.3 %; Platelet Count 131 K/uL (130-400); RDW Coefficient of Variation 14.7 % (11.5-14.5); RDW Standard Deviation 46.1 fL (36.4-46.3); Red Blood Count 3.09 M/uL (4.70-6.10); White Blood Count 6.07 K/ul (4.8-10.8)
[2023-11-01 05:32] LABS: Alanine Aminotransferase 13 U/L (7-52); Albumin Globulin Ratio 1.6 (0.9-2); Albumin Level 3.1 gm/dl (3.4-5.0); Alkaline Phosphatase 61 U/L (34-104); Anion Gap 4 (3-11); Aspartate Aminotransferase 10 U/L (13-39); BUN Creatinine Ratio 38.3 (10-20); Bilirubin,Total 0.4 mg/dl (0.2-1.0); Blood Urea Nitrogen 51 mg/dl (6-23); C Reactive Protein < 0.50 mg/dl (0-0.5); Calcium 8.1 mg/dl (8.6-10.3); Carbon Dioxide 23 mmol/L (21-32); Chloride 112 mmol/L (98-107); Creatinine Clr Calc Pharmacy 72.8 ml/min; Est GFR (African American) 65.9 ml/min; Est GFR (Non-African American) 56.9 ml/min; Globulin 1.9 gm/dl (2.5-4.0); Glucose 85 mg/dl (70-99(Fasting)); Iron 44 mcg/dl (35-175); Magnesium 1.6 mg/dl (1.7-2.4); Potassium 4.4 mmol/L (3.5-5.1); Sodium 139 mmol/L (136-145); Total Iron Binding Cap Calc 207 mcg/dl (250-450); Transferrin (FE) Percent Satur 21 % (20-50); Unsaturated Iron Binding Cap 163 mcg/dl (155-355)
[2023-11-01 05:59] LABS: Ferritin 33.3 ng/ml (8-388); Thyroid Stimulating Hormone 0.451 uIu/ml (0.300-4.500)
[2023-11-01 06:13] LABS: Folate (Folic Acid),Ser orPlas 12.67 ng/ml (>5.38)
--- NOTE | 2023-11-01 09:14 | Ultrasound Report ---
US duplex mesenteric HISTORY: 63 years-old Male suspect mesenteric ischemia COMPARISON: CT 10/29/2013 TECHNIQUE: Multiple real-time sonographic images of the mesenteric vessels were obtained assessing gr ayscale appearance, color and spectral flow FINDINGS: Obscuring bowel gas limits the study. Low resistance waveforms noted within the celiac, hepatic and s uperior mesenteric arteries with normal waveforms within the abdominal aorta, peak systolic velocitie s measuring up to 61 cm/s. No elevated peak systolic velocities identified. IMPRESSION: 1. Very limited study secondary to obscuring bowel gas. 2. The imaged mesenteric vessels appear patent without high-grade stenosis. ACT 112: Negative or not required by law. The above report was generated using voice recognition software. It may contain grammatical, syntax o r spelling errors. Electronically signed by: All Bolaños M.D. 11/01/2023 9:13 AM
[2023-11-01] MEDS: MAGNESIUM SULFATE / D5W 1 GM/100 ML BAG IV SCH (10:54)
--- NOTE | 2023-11-01 14:45 | Gastroenterology Progress Note ---
Date of Service November 01, 2023 Assessment & Plan (1) Abdominal pain: Plan: Discussed with Dr. Rain. I think the next test will be MRE and he is to get that tomorrow. Decision will be made about EGD and colonoscopy pending results of MRE. Dr. Mandujano to take over tomorrow Admission and Anticipated Discharge Date Admission Date: October 30, 2023 Subjective Doing better today. As per discussions with Dr. Rain his problems seem to be recurrent SBO. His hemoglobin seems to be settling down. He is having no issues today Physical Exam Physical Exam: He looks well Results & Data Vital Signs (Past 12 Hours) Vital Signs Temp Pulse Pulse Resp BP BP Pulse Ox 11/01/23 11:56 11/01/23 11:15 36.4 C L 73 19 115/76 97 11/01/23 08:31 73 11/01/23 07:52 36.4 C L 77 19 126/82 96 11/01/23 03:42 36.5 C 72 18 118/77 99 O2 Del Method 11/01/23 11:56 Room Air 11/01/23 11:15 Room Air 11/01/23 08:31 11/01/23 07:52 Room Air 11/01/23 03:42 Room Air
--- NOTE | 2023-11-01 16:41 | XCELERA ---
[id number]
--- NOTE | 2023-11-01 17:24 | Hospitalist Progress Note ---
Date of Service November 01, 2023 Assessment & Plan (1) Abdominal pain: Plan: 63-year-old male presenting with 4 weeks of intermittent abdominal pain. Patient has had multiple hospital stays in the past several weeks for recurrent SBOs requiring NGT as well as one admission for more PSBO/ileus likely on basis of adhesions. Each time he presents with N/V, severe abdominal pain, ROME, and leukocytosis. Here he was hypotensive on arrival now improved after IV fluids. He had leukocytosis with WBC = 14.86 which is now resolved with IV fluids-he has not received any antibiotics. Laboratory evidence of dehydration with ROME now continues to be improving. LFTs, lipase within normal limits. CT of the abdomen suggestive of diarrheal state, no additional findings of concern, specifically no obstruction or colitis Stool bio fire is negative as is C. difficile. Improving clinically, no need for antibiotics at this time Mesenteric Doppler grossly negative Outside hospital records reviewed and he was seen by Surgery and recommended to be evaluated as an outpt for possible MALLORY-pt prefers to be seen by Surgery at [place]-consult Surgery here Abd pain resolved currently, tolerating liquids diet-advance to fulls dc IV fluids to avoid volume overload which he describes has happened in the past Appreciate GI consultation-plan for EGD and colonoscopy when off of Plavix x 5 days -plan for Sunday Check MRE tomorrow when film laboratory technician available Discontinued dianne Pennington given his ongoing diarrhea Consult Surgery (2) Hx SBO: Plan: as above, likely from adhesions from previous hernia repair with bowel resection from strangulated bowel (3) GIB (gastrointestinal bleeding): Plan: With acute blood loss anemia Report of visible blood in diarrhea by EMS. Hemoccult performed in the ER which was positive. Patient has been started on Protonix bolus and drip by the ER. Denies hematemesis. Suspect lower GI bleed, no evidence of colitis on CT at this time but could have ischemic colitis given significant hypotension on admission Hemoglobin has now dropped to 8.8-will continue to follow CBC Consult GI Continue to hold aspirin and Plavix Okay to advance diet to full liquids Transfuse as needed-consent obtained (4) ROME (acute kidney injury): Plan: Creatinine up to 2.1 on admission, no baseline creatinine to follow but creatinine is down 1.33 today with IV fluid hydration He is voiding Follow BMP dc IVFs Hold home lisinopril--would NOT resume lisinopril on discharge (5) Acute blood loss anemia: Plan: As above (6) CAD (coronary artery disease): Plan: Chronic. With history of 2 stents in 2018 at [facility]. Patient denies chest pain Will hold aspirin and Plavix for now, then can likely restart only aspirin as it has been many years since his stent placement ECG with T wave inversions in lateral leads, no previous EKG to compare to. Troponin normal at 19 on admission Hold atenolol and lisinopril due to hypotension and renal failure-can resume atenolol tomorrow if BPs rise Continue rosuvastatin Checked echocardiogram-dilated LA but otherwise normal (7) Obesity: Plan: Morbid obesity with BMI 40.5 (8) B12 deficiency: Plan: B12 level here checked due to anemia and poor nutrition-low at 180 start IM B12 1000mcg daily x 3 days, then po B12 Plan Disposition-continued stay discussed care at length with daughter at bedside DVT proph-add SCDs Admission and Anticipated Discharge Date Admission Date: October 30, 2023 Subjective Pt feeling better, no abd pain, no nausea, tolerating liquids Tele with bigem, NSR, IVCD, rates 70-90s' I spent 30 min reviewing outside records and discussing care with GI Physical Exam Constitutional: WD/WN, vitals as above + obese Neck: trachea midline, no thyromegaly Respiratory: normal respiratory effort, lungs clear to auscultation Cardiovascular: RRR, no murmur, no edema Chest (Breasts): Chest: normal inspection of chest Gastrointestinal (Abdomen): normal bowel sounds, soft, nontender, no hepatosplenomegaly Musculoskeletal: Extremities: extremities normal to inspection; no cyanosis and no clubbing Skin: no rashes, warm and dry Neurologic: moves all extremities and awake; no focal motor deficits Psychiatric: A+Ox3, euthymic affect Lymphatic: no lymphedema Results & Data Results & Data Vital Signs (Past 12 Hours) Vital Signs Temp Pulse Pulse Resp BP BP Pulse Ox 11/01/23 16:39 76 11/01/23 16:29 36.4 C L 75 20 119/76 94 11/01/23 11:56 11/01/23 11:15 36.4 C L 73 19 115/76 97 11/01/23 08:31 73 11/01/23 07:52 36.4 C L 77 19 126/82 96 O2 Del Method 11/01/23 16:39 11/01/23 16:29 Room Air 11/01/23 11:56 Room Air 11/01/23 11:15 Room Air 11/01/23 08:31 11/01/23 07:52 Room Air Laboratory Results CBC, BMP, LFTs, B12, folate, iron studies, magnesium reviewed blood cxs reviewed PG Care Time/CCT Total # of Minutes Spent Total Time Spent with Patient: Total time spent is greater than 50% in coordination of care (as documented) at patient's floor/unit and/or counseling patient: Coding Level of Care Code 24787 SUB INP/OBS CARE 3/50MIN Diagnoses Abdominal pain R10.9 Hx SBO Z87.19 GIB (gastrointestinal bleeding) K92.2 ROME (acute kidney injury) N17.9 Acute blood loss anemia D62 CAD (coronary artery disease) I25.10 Obesity E66.9 B12 deficiency E53.8
[2023-11-01] MEDS: CYANOCOBALAMIN 1000 MCG/ML VIAL IM SCH (18:22)
[2023-11-01] MEDS: MELATONIN 3 MG TAB PO SCH (19:27)
--- NOTE | 2023-11-01 19:36 | Surgery Consultation ---
Date of Consultation November 01, 2023 Assessment & Plan (1) Abdominal pain: The patient is currently admitted on the hospitalist service. The exact cause of his abdominal symptomatology is uncertain. From surgical perspective we recommend the following: The patient is currently on full liquid diet and would continue this diet as the patient currently does not have any abdominal complaints (he is without abdominal pain or nausea or vomiting at the time of my interview) Patient is scheduled for an MRE of his abdomen and we will await the results of this Gastroenterology is planning both upper and lower endoscopies with time of these procedures yet to be determined and we will await the results of the studies I discussed etiology of small bowel obstruction with the patient outlining the the most common cause is adhesions from previous surgery. I did discuss with the patient that at the present time he does not have evidence of a small bowel obstruction and therefore he does not require surgical intervention. I did discuss with him that if surgical intervention with lysis of adhesions was performed additional scar tissue would likely form in his abdomen putting him at risk for further small bowel obstructions. As noted above at the present time the patient does not necessitate surgical intervention. If the patient does develop a small bowel obstruction in the future we will begin treatment with conservative measures and then further discussion will be had with the patient about the possible need for surgical intervention. Supervising Physician Co-Signing Physician Notes I personally saw and evaluated the patient with Seth Samuel PA-C and agree with the assessment and plan 63 yo with history of SBO, not currently CT images and results from 10/29 were personally viewed and interpreted by myself No signs of SBO on CT or clinically at this point No plans for any surgical intervention Surgery will sign off, please call with any questions or concerns History of Present Illness Reason for Consultation: History of recurrent small bowel obstructions Attending Physician: Jenny Rain MD History of Present Illness This is a 63-year-old male who was admitted to [facility] [address] on 10/30/2023. The patient was admitted secondary to abdominal pain. The patient does note that he has had a history of a strangulated abdominal hernia when he was in his 20s. He says as a result of this he required exploratory abdominal surgery where they removed 6 inches of small bowel. The patient notes that this is his only abdominal surgery that he has ever had. He does note that he has had multiple small bowel obstructions specifically stating that this has happened 4-5 times within the last year. He says that he has never required surgical intervention and has always been treated successfully in a conservative manner sometimes with NG tube placement. The patient notes that he does have on and off abdominal pain with associated nausea and vomiting. He notes that this most recent episode of his abdominal pain the pain was located in his central abdomen without radiation or modifying factors. He does note that he has been having some melanotic bowel movements and also has noted some blood in his stool but he has never vomited blood. I asked him about previous hospitalizations and the patient says that he has had multiple hospital stays over the past month at facilities other than [facility]. He was admitted to [facility] and subsequent was transferred to [facility] and then he was at [facility] with a transfer to [place]. He has also been most recently admitted to [facility] The patient says that most of these hospitalizations were due to small bowel obstructions but again he has not required any surgery. Available imaging and labs were reviewed from this hospitalization. He did have a chest x-ray on 10/30/2023 which showed no evidence of pneumonia. Also on 10/30/[address] scan of the abdomen pelvis that showed no evidence of bowel obstruction. Patient was noted to have a fluid-filled colon associated with sequela of enteritis or malabsorption. The patient has also undergone a mesenteric ultrasound which showed that the mesenteric vessels appear to be patent without high-grade stenosis. Because of the patient's ongoing abdominal symptomatology he has been seen by gastroenterology. Gastroenterology did not have a definitive answer of what is causing the patient's symptomatology and they recommended the patient undergo an EGD and colonoscopythe studies are currently pending. In addition it has been recommended that the patient undergo an MRI of his abdomen and that study is scheduled for tomorrow. The patient notes that in addition to his abdominal complaints he does have a history of coronary arteries for which he underwent cardiac catheterization with stent placement several years ago. He says that he does take aspirin and Plavix. He says he does not get chest pain or shortness of breath with his day-to-day activities and he follows with the cardiology group in [place]. At the present time the patient is resting comfortably in bed and he is currently without nausea or vomiting. At the present time he also does not report any abdominal pain and he is tolerating a full liquid diet. He does note that his bowels have moved within the past 24 to 48 hours and it was normal. Allergies Allergy/AdvReac Type Severity Reaction Status Date / Time adhesive Allergy Intermediate SKIN Verified 10/30/23 21:35 IRRITATION Home Medications Medication Instructions Recorded Confirmed Type aspirin 81 mg tablet,delayed 81 mg PO DAILY 10/30/23 10/30/23 History release atenolol 25 mg tablet 25 mg PO DAILY 10/30/23 10/30/23 History clopidogrel 75 mg tablet 75 mg PO DAILY 10/30/23 10/30/23 History duloxetine 60 mg capsule,delayed 60 mg PO DAILY 10/30/23 10/30/23 History release gabapentin 100 mg capsule 100 mg PO TID 10/30/23 10/30/23 History lisinopril 5 mg tablet 10 mg PO DAILY 10/30/23 10/30/23 History metoclopramide HCl 10 mg tablet 10 mg PO ACHS 10/30/23 10/30/23 History rosuvastatin 10 mg tablet 10 mg PO HS 10/30/23 10/30/23 History sennosides 8.6 mg tablet (senna) 17.2 mg PO QPM 10/30/23 10/30/23 History Patient History Medical History B12 deficiency Obesity SBO (small bowel obstruction) HLD (hyperlipidemia) HTN (hypertension) Surgical History History of total knee arthroplasty History of total hip arthroplasty S/P colectomy Family History Other Family history non-contributory Social History Smoking Status: Former smoker Tobacco Type: Cigarettes Cigarettes Per Day: 1; Smoking End Date: 30 years ago per patient; Second Hand Exposure: Yes (cigarette smoke); Do You Dip or Chew Tobacco: No; Tobacco Cessation Education Requested by Patient: No Hx Alcohol Use: No Hx Substance Use: No Preferred Language: Sammarinese Communication Ability: Effective Rn Digestive Required: No Beliefs That Will Affect Care: None Current Living Situation: Spouse Current Living Situation Comment: Lives at home with Other Information That Helps Us Care for You: No Feels Safe at Home: Yes Safety Concerns: Feels Safe At This Time Assistive Devices: Crutches Review of Systems Constitutional: no fever and no chills Ear, Nose, Mouth, Throat: no hearing loss Respiratory: no cough and no dyspnea Cardiovascular: no chest pain Gastrointestinal: as per Subjective / HPI Genitourinary: no dysuria Musculoskeletal: no back pain Integumentary: no rash Neurologic: no localized weakness Physical Exam Constitutional: WD/WN, vitals as above Eyes: no conjunctival abnormality ENMT: Ears: no hearing impairment and no external ear abnormality Mouth: no oropharynx abnormality Neck: trachea midline Respiratory: normal respiratory effort; no respiratory distress and no labored breathing Cardiovascular: Rate/Rhythm: regular rate and regular rhythm Gastrointestinal (Abdomen): Patient's abdomen is soft, nondistended, nontender to palpation. There is no rebound tenderness or guarding or peritoneal signs. Bowel sounds are present. Patient has a well-healed midline incision. I do not appreciate any hernias. Musculoskeletal: No calf tenderness Skin: no rashes Neurologic: moves all extremities Psychiatric: A+Ox3, euthymic affect Results & Data Vital Signs (Past 12 Hours) Vital Signs Temp Pulse Pulse Resp BP BP Pulse Ox 11/01/23 16:39 76 11/01/23 16:29 36.4 C L 75 20 119/76 94 11/01/23 11:56 11/01/23 11:15 36.4 C L 73 19 115/76 97 11/01/23 08:31 73 11/01/23 07:52 36.4 C L 77 19 126/82 96 O2 Del Method 11/01/23 16:39 11/01/23 16:29 Room Air 11/01/23 11:56 Room Air 11/01/23 11:15 Room Air 11/01/23 08:31 11/01/23 07:52 Room Air PG Care Time/CCT Total # of Minutes Spent Total Time Spent with Patient: Total time spent is greater than 50% in coordination of care (as documented) at patient's floor/unit and/or counseling patient: Coding Level of Care Code 31653 IN/OBS CONSULT LVL 5,80M Diagnoses Abdominal pain R10.9
[2023-11-02] MEDS: ACETAMINOPHEN 325 MG TAB PO PRN (01:17)
--- NOTE | 2023-11-02 06:05 | Electrocardiogram Report ---
Test Reason : Blood Pressure : / mmHG Vent. Rate : 077 BPM Atrial Rate : 077 BPM P-R Int : 152 ms QRS Dur : 098 ms QT Int : 404 ms P-R-T Axes : 067 048 066 degrees QTc Int : 457 ms Normal sinus rhythm T wave abnormality, consider inferolateral ischemia Abnormal ECG No previous ECGs available Confirmed by James Casiano ([id number]) on 11/02/2023 6:05:14 AM Referred By: REFERRED SELF Confirmed By:James Casiano
[2023-11-02 06:31] LABS: Basophils # (auto) 0.02 K/uL (0.00-0.20); Basophils % (auto) 0.4 %; Eosinophils # (auto) 0.19 K/uL (0.00-0.50); Eosinophils % (auto) 3.4 %; Hematocrit (blood only) 27.9 % (42.0-52.0); Hemoglobin 8.7 g/dl (14.0-18.0); Immature Granulocytes # (auto) 0.05 K/uL (0.01-0.20); Immature Granulocytes % (auto) 0.9 %; Lymphocytes # (auto) 1.38 K/uL (1.20-3.40); Lymphocytes % (auto) 24.8 %; Mean Corpuscular Hemoglobin 27.7 pg (25.0-34.0); Mean Corpuscular Hgb Conc 31.2 g/dL (32.0-36.0); Mean Corpuscular Volume 88.9 fL (80.0-100.0); Mean Platelet Volume 11.1 fL (9.4-12.4); Monocytes # (auto) 0.39 K/uL (0.11-0.59); Neutrophils # (auto) 3.53 K/uL (1.40-6.50); Neutrophils % (auto) 63.5 %; Platelet Count 129 K/uL (130-400); RDW Coefficient of Variation 14.6 % (11.5-14.5); RDW Standard Deviation 46.5 fL (36.4-46.3); Red Blood Count 3.14 M/uL (4.70-6.10); White Blood Count 5.56 K/ul (4.8-10.8)
[2023-11-02 06:56] LABS: BUN Creatinine Ratio 25.2 (10-20); Calcium 8.2 mg/dl (8.6-10.3); Creatinine Clr Calc Pharmacy 84.1 ml/min; Est GFR (African American) 78.6 ml/min; Est GFR (Non-African American) 67.8 ml/min; Magnesium 1.9 mg/dl (1.7-2.4); Potassium 4.2 mmol/L (3.5-5.1)
--- NOTE | 2023-11-02 10:43 | Gastroenterology Progress Note ---
Date of Service November 02, 2023 Assessment & Plan (1) Abdominal pain: (2) Hx SBO: Plan 1. Await MRE scheduled for today. 2. Plan for endoscopic work up pending results of testing. 3. Appreciate surgery reccs. Admission and Anticipated Discharge Date Admission Date: October 30, 2023 Supervising Physician Co-Signing Physician Notes Agree with ERIC Boudreaux as above Mild duodenal changes on MRE, no evidence of SBE or stricturing disease Recommend Outpatient EGD and Colonoscopy Subjective Patient reports improved abdominal pain. Passing flatus. No nausea or vomiting. Pending MRE today. Surgery following. Continues full liquid diet. Review of Systems Constitutional: no fever and no chills Gastrointestinal: as per Subjective / HPI Physical Exam Constitutional: WD/WN, vitals as above Respiratory: normal respiratory effort, lungs clear to auscultation Cardiovascular: RRR, no murmur, no edema Gastrointestinal (Abdomen): Inspection/Auscultation: + hypoactive bowel sounds Percussion/Palpation: abdomen soft; abdomen nontender, no guarding and abdomen not rigid Psychiatric: A+Ox3, euthymic affect Results & Data Results & Data Vital Signs (Past 12 Hours) Vital Signs Temp Pulse Pulse Pulse Resp BP BP 11/02/23 07:13 36.3 C L 69 18 148/90 H 11/02/23 03:42 36.5 C 100 H 18 131/71 11/01/23 23:06 36.7 C 76 18 130/79 11/01/23 23:03 75 Pulse Ox O2 Del Method 11/02/23 07:13 95 Room Air 11/02/23 03:42 95 Room Air 11/01/23 23:06 92 Room Air 11/01/23 23:03 Diagnostic Findings Laboratory Results WBC 5.56 K/ul (4.8-10.8) 11/02/23 04:44 RBC 3.14 M/uL (4.70-6.10) L 11/02/23 04:44 Hgb 8.7 g/dl (14.0-18.0) L 11/02/23 04:44 POC Hgb 10.9 g/dl (14.0-18.0) L 10/30/23 21:23 Hct 27.9 % (42.0-52.0) L 11/02/23 04:44 POC Hct 32 % (42-52) L 10/30/23 21:23 MCV 88.9 fL (80.0-100.0) 11/02/23 04:44 MCH 27.7 pg (25.0-34.0) 11/02/23 04:44 MCHC 31.2 g/dL (32.0-36.0) L 11/02/23 04:44 RDW Std Deviation 46.5 fL (36.4-46.3) H 11/02/23 04:44 RDW Coeff of Teresa 14.6 % (11.5-14.5) H 11/02/23 04:44 Plt Count 129 K/uL (130-400) L 11/02/23 04:44 MPV 11.1 fL (9.4-12.4) 11/02/23 04:44 Immature Gran % (Auto) 0.9 % 11/02/23 04:44 Neut % (Auto) 63.5 % 11/02/23 04:44 Lymph % (Auto) 24.8 % 11/02/23 04:44 Giles % (Auto) 7.0 % 11/02/23 04:44 Eos % (Auto) 3.4 % 11/02/23 04:44 Baso % (Auto) 0.4 % 11/02/23 04:44 Neut # (Auto) 3.53 K/uL (1.40-6.50) 11/02/23 04:44 Lymph # (Auto) 1.38 K/uL (1.20-3.40) 11/02/23 04:44 Giles # (Auto) 0.39 K/uL (0.11-0.59) 11/02/23 04:44 Eos # (Auto) 0.19 K/uL (0.00-0.50) 11/02/23 04:44 Baso # (Auto) 0.02 K/uL (0.00-0.20) 11/02/23 04:44 Immature Gran # (Auto) 0.05 K/uL (0.01-0.20) 11/02/23 04:44 ESR 4 mm/hr (0-20) 11/01/23 04:17 PT 11.5 Seconds (9.0-12.0) 10/30/23 21:13 INR 1.1 (0.9-1.1) 10/30/23 21:13 APTT 24 Seconds (21-31) 10/30/23 21:13 PTT Ratio 0.9 10/30/23 21:13 POC Sodium 142 mmol/L (135-144) 10/30/23 21:23 Sodium 139 mmol/L (136-145) 11/02/23 04:44 POC Potassium 4.7 mmol/L (3.3-5.0) 10/30/23 21:23 Potassium 4.2 mmol/L (3.5-5.1) 11/02/23 04:44 POC Chloride 110 mmol/L (101-112) 10/30/23 21:23 Chloride 109 mmol/L (98-107) H 11/02/23 04:44 Carbon Dioxide 25 mmol/L (21-32) 11/02/23 04:44 POC Total CO2 22 mmol/L (24-31) L 10/30/23 21:23 Anion Gap 5 (3-11) 11/02/23 04:44 POC Anion Gap 16.0 mmol/L (16-25) 10/30/23 21:23 POC BUN 58 mg/dl (7-18) H 10/30/23 21:23 BUN 29 mg/dl (6-23) H D 11/02/23 04:44 Creatinine 1.15 mg/dl (0.6-1.4) 11/02/23 04:44 POC Creatinine 2.3 mg/dl (0.6-1.3) H 10/30/23 21:23 Est Cr Clr Drug Dosing 84.1 ml/min 11/02/23 04:44 Est GFR ( Amer) 78.6 ml/min 11/02/23 04:44 Est GFR (Non-Af Amer) 67.8 ml/min 11/02/23 04:44 BUN/Creatinine Ratio 25.2 (10-20) H 11/02/23 04:44 Glucose 96 mg/dl (70-99(Fasting)) 11/02/23 04:44 POC Glucose (other) 89 mg/dl (70-99) 10/30/23 21:23 Lactate 1.9 mmol/L (0.4-2.0) 10/30/23 22:07 Calcium 8.2 mg/dl (8.6-10.3) L 11/02/23 04:44 POC Ioniz Calcium Edna 1.13 mmol/l (1.12-1.32) 10/30/23 21:23 Magnesium 1.9 mg/dl (1.7-2.4) 11/02/23 04:44 Iron 44 mcg/dl (35-175) 11/01/23 04:17 TIBC 207 mcg/dl (250-450) L 11/01/23 04:17 Unsaturated IBC 163 mcg/dl (155-355) 11/01/23 04:17 Transferrin % Sat 21 % (20-50) 11/01/23 04:17 Ferritin 33.3 ng/ml (8-388) 11/01/23 04:17 Total Bilirubin 0.4 mg/dl (0.2-1.0) 11/01/23 04:17 Direct Bilirubin 0.0 mg/dl (0-0.2) 10/30/23 21:13 AST 10 U/L (13-39) L 11/01/23 04:17 ALT 13 U/L (7-52) 11/01/23 04:17 Alkaline Phosphatase 61 U/L (34-104) 11/01/23 04:17 Troponin I High Sens 19.8 pg/ml (0-20) 10/30/23 21:13 C-Reactive Protein < 0.50 mg/dl (0-0.5) 11/01/23 04:17 Total Protein 5.0 gm/dl (6.0-8.3) L 11/01/23 04:17 Albumin 3.1 gm/dl (3.4-5.0) L 11/01/23 04:17 Globulin 1.9 gm/dl (2.5-4.0) L 11/01/23 04:17 Albumin/Globulin Ratio 1.6 (0.9-2) 11/01/23 04:17 Lipase 41 U/L (11-82) 10/30/23 21:13 Vitamin B12 180 pg/ml (180-914) 11/01/23 04:17 Folate 12.67 ng/ml (>5.38) 11/01/23 04:17 TSH 0.451 uIu/ml (0.300-4.500) 11/01/23 04:17 Random Cortisol 10.86 mcg/dl 10/31/23 04:34 Urine Color Yellow 10/31/23 Unknown Urine Appearance Clear (Clear) 10/31/23 Unknown Urine pH 5.0 (4.5-7.5) 10/31/23 Unknown Ur Specific Sandy 1.019 (1.000-1.030) 10/31/23 Unknown Urine Protein Trace (Negative) H 10/31/23 Unknown Urine Glucose (UA) 1+ (Negative) H 10/31/23 Unknown Urine Ketones Trace (Negative) H 10/31/23 Unknown Urine Blood Negative (Negative) 10/31/23 Unknown Urine Nitrite Negative (Negative) 10/31/23 Unknown Urine Bilirubin Negative (Negative) 10/31/23 Unknown Urine Urobilinogen Negative (Negative) 10/31/23 Unknown Ur Leukocyte Esterase Negative (Negative) 10/31/23 Unknown Urine WBC (Auto) 1-5 /hpf (0-5) 10/31/23 Unknown Urine RBC (Auto) 0-4 /hpf (0-4) 10/31/23 Unknown U Hyaline Cast (Auto) 5-10 /lpf (0-5) H 10/31/23 Unknown U Epithel Cells (Auto) 10-20 /lpf (0-5) H 10/31/23 Unknown Urine Bacteria (Auto) Negative (Negative) 10/31/23 Unknown Stl C. cayetanensis PCR Not Detected (NotDetected) 10/31/23 13:04 Stool Rotavirus A PCR Not Detected (NotDetected) 10/31/23 13:04 Stl Adenov F 40/41 PCR Not Detected (NotDetected) 10/31/23 13:04 Stool Astrovirus (PCR) Not Detected (NotDetected) 10/31/23 13:04 Stool Campylobacter PCR Not Detected (NotDetected) 10/31/23 13:04 Stl C. diff Tox B Gene Negative Cdiff Gene (Neg) 10/31/23 13:04 Stool Cryptosporidium PCR Not Detected (NotDetected) 10/31/23 13:04 Stl E.coli Shiga Tox PCR Not Detected (NotDetected) 10/31/23 13:04 Stl Enterotoxigenic E PCR Not Detected (NotDetected) 10/31/23 13:04 Stool EPEC (PCR) Not Detected (NotDetected) 10/31/23 13:04 Stool EAEC (PCR) Not Detected (NotDetected) 10/31/23 13:04 Stl E. histolytica PCR Not Detected (NotDetected) 10/31/23 13:04 Stool Giardia Lamblia PCR Not Detected (NotDetected) 10/31/23 13:04 Stool Salmonella PCR Not Detected (NotDetected) 10/31/23 13:04 Stool Sapovirus (PCR) Not Detected (NotDetected) 10/31/23 13:04 Stl P. shigelloides PCR Not Detected (NotDetected) 10/31/23 13:04 Stl Shigella/EIEC PCR Not Detected (NotDetected) 10/31/23 13:04 St Y.enterocolitica PCR Not Detected (NotDetected) 10/31/23 13:04 Stool Vibrio (PCR) Not Detected (NotDetected) 10/31/23 13:04 Stl Vibrio cholerae PCR Not Detected (NotDetected) 10/31/23 13:04 Stl Norovirus GI/GII PCR Not Detected (NotDetected) 10/31/23 13:04 Blood Type A Positive 10/30/23 21:13 Antibody Screen NEGATIVE 10/30/23 21:13 Impressions Chest X-Ray 10/30/23 21:18 XR chest 1V portable CLINICAL HISTORY: vomitting TECHNIQUE: Single frontal radiograph of the chest was obtained. Comparison: None available at the time of this dictation. FINDINGS: No lines and tubes are seen. The cardiomediastinal silhouette is normal. Lungs are underinflated but clear. No evidence of pleural effusion or pneumothorax. IMPRESSION: No acute chest disease. ACT 112: Negative or not required by law. Electronically signed by: Dieter Poon M.D. 10/31/2023 7:42 AM Abdomen/Pelvis CT 10/30/23 21:30 Exam(s): CT ABDOMEN + PELVIS Without Contrast EXAM: CT Abdomen and Pelvis Without Intravenous Contrast CLINICAL HISTORY: Reason for exam: ro sbo. TECHNIQUE: Axial computed tomography images of the abdomen and pelvis without intravenous contrast. CTDI is 28.12 mGy and DLP is 1576.4 mGy-cm. Automated exposure control was utilized for the study. A dose lowering technique was utilized adhering to the principles of ALARA. COMPARISON: None. FINDINGS: Lung bases: Bilateral lower lobe atelectasis, right more than left. Heart: Unremarkable. No cardiomegaly. No significant pericardial effusion. Normal cardiac size with coronary artery calcifications. ABDOMEN: Liver: Unremarkable. Gallbladder and bile ducts: Unremarkable. No calcified stones. No ductal dilation. Pancreas: Unremarkable. No ductal dilation. Spleen: Unremarkable. No splenomegaly. Adrenals: Unremarkable. No mass. Kidneys and ureters: See below. Stomach and bowel: Postoperative changes with sutures along the small bowel loops. Fluid within the colon. No obstruction. No mucosal thickening. PELVIS: Appendix: No findings to suggest acute appendicitis. Bladder: Unremarkable. No stones. Reproductive: Unremarkable as visualized. ABDOMEN and PELVIS: Intraperitoneal space: Unremarkable. No free air. No significant fluid collection. Bones/joints: Status post right-sided hip prosthesis placement. There is lucency surrounding the femoral component, clinical significance indeterminate, differential diagnosis including loosening although difficult to assess due to incomplete inclusion in the field of view. 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 Anterolisthesis of L5 on S1 (10 mm) with bilateral pars defect of L5. No acute fracture. No dislocation. Soft tissues: Unremarkable. Vasculature: Atherosclerotic disease of aorta with no aneurysm. Tiny stone versus vascular calcification within the lower pole of the left kidney measuring 1.7 mm. Otherwise normal left kidney. Normal right kidney. Lymph nodes: Unremarkable. No enlarged lymph nodes. IMPRESSION: 1. No bowel obstruction. Fluid within the colon which may be associated with sequela of enteritis versus malabsorption, correlation with history of diarrheal state recommended. 2. Vascular calcification versus tiny stone within the left kidney measuring 1.7 mm. No hydronephrosis. Remainder of abdominal viscera are unremarkable. Electronically signed by: Jade Cano MD 10/30/23 22:58 PM Mesenteric US 11/01/23 00:00 US duplex mesenteric HISTORY: 63 years-old Male suspect mesenteric ischemia COMPARISON: CT 10/29/2013 TECHNIQUE: Multiple real-time sonographic images of the mesenteric vessels were obtained assessing grayscale appearance, color and spectral flow FINDINGS: Obscuring bowel gas limits the study. Low resistance waveforms noted within the celiac, hepatic and superior mesenteric arteries with normal waveforms within the abdominal aorta, peak systolic velocities measuring up to 61 cm/s. No elevated peak systolic velocities identified. IMPRESSION: 1. Very limited study secondary to obscuring bowel gas. 2. The imaged mesenteric vessels appear patent without high-grade stenosis. ACT 112: Negative or not required by law. The above report was generated using voice recognition software. It may contain grammatical, syntax or spelling errors. Electronically signed by: All Bolaños M.D. 11/01/2023 9:13 AM PG Care Time/CCT Total # of Minutes Spent Total Time Spent with Patient: Total time spent is greater than 50% in coordination of care (as documented) at patient's floor/unit and/or counseling patient: Coding Level of Care Code 01750 SUB INP/OBS CARE 3/50MIN Diagnoses Abdominal pain R10.9 Hx SBO Z87.19
[2023-11-02] MEDS: GLUCAGON FOR INJ 1 MG VIAL IM ONE (12:03)
[2023-11-02] MEDS: GADOBUTROL 65ML VIAL IV ONE (12:08)
[2023-11-02] MEDS: PANTOprazole 40 MG TAB PO SCH ×2 (12:43→20:04)
--- NOTE | 2023-11-02 13:11 | Magnetic Resonance Report ---
MR enterography wo/w con HISTORY: 63 years-old Male GI bleeding, chronic abdominal pain Chronic generalized abdominal pain. COMPARISON: CT abdomen and pelvis 10/30/2023. TECHNIQUE: MR enterography was obtained with and without IV contrast. FINDINGS: Right hemidiaphragmatic elevation. Motion degraded exam. The spleen is enlarged measuring up to 15 cm . Cardiomegaly. Right hip arthroplasty is not well evaluated secondary to micrometallic artifact. Pro bable particle disease surrounding the right hip is better seen on the corresponding comparison CT st [facility]. Osteoarthritis of the left hip with multilevel degenerative changes of the spine. Unchanged scol iotic curvature of the lumbar spine. Prostatomegaly with suggested sequela of chronic bladder outlet obstruction. Unremarkable liver, gallbladder and adrenal glands. [id number]-mxhridhr pancreatic atrophy. Mild cortica l thinning of the kidneys with bilateral perinephric stranding. No hydronephrosis. A 1.2 cm T2 hyperi ntense probable cyst of the interpolar right kidney. No abdominal aortic aneurysm or lymphadenopathy. Focal circumferential wall thickening is again noted involving the junction of the second and third portions of the duodenum demonstrating increased enhancement. Colonic diverticulosis. No bowel obstru ction or free-fluid is identified. No small bowel lesions, strictures or otherwise significant bowel wall thickening is identified. No evidence of acute appendicitis. IMPRESSION: 1. Circumferential wall thickening with increased enhancement of the duodenum at the junction of the second and third portions is nonspecific and may represent a nonspecific duodenitis versus peptic ulc er disease. This could be correlated with endoscopy to exclude a mucosal lesion. 2. Motion degraded exam without bowel obstruction or additional areas of significant bowel wall thick ening is identified. 3. Colonic diverticulosis. ACT 112: Negative or not required by law. The above report was generated using voice recognition software. It may contain grammatical, syntax o r spelling errors. Dictated: 11/02/2023 12:19 PM Transcribed: 11/02/2023 12:45 PM Mikey [id number] [email or web address] Electronically signed by: All Bolaños M.D. 11/02/2023 1:09 PM
--- NOTE | 2023-11-02 17:24 | Hospitalist Progress Note ---
Date of Service November 02, 2023 Assessment & Plan (1) Abdominal pain: Plan: This pt is a 63-year-old male presenting with 4 weeks of intermittent abdominal pain. Patient has had multiple hospital stays in the past several weeks for recurrent SBOs requiring NGT as well as one admission for more PSBO/ileus likely on basis of adhesions. Each time he presents with N/V, severe abdominal pain, ROME, and leukocytosis. Here he was hypotensive on arrival which improved after IV fluids. He had leukocytosis with WBC = 14.86 which is now resolved without any antibiotics. With dehydration, ROME - continues to be improving. LFTs, lipase within normal limits. CT of the abdomen suggestive of diarrheal state, no additional findings of concern, specifically no obstruction or colitis Stool bio fire is negative as is C. difficile. Improving clinically, no need for antibiotics at this time Mesenteric Doppler grossly negative MRE shows thickened 2nd and 3rd portion of duodenum, possibly duodenitis vs mucosal lesion, otherwise negative Outside hospital records reviewed and he was seen by Surgery and recommended to be evaluated as an outpt for possible MALLORY-pt prefers to be seen by Surgery at [place]-consult Surgery here recommends no surgery at this time. Will have him f/u with Surgery as an outpt Abd pain resolved- tolerating full liquids diet-advance to low fiber for now Appreciate GI consultation-plan for EGD and colonoscopy when off of Plavix x 5 days -plan for Sunday-I confirmed this w/ Dr. Mandujano on Sunday afternoon NPO after midnight Sunday night and will order bowel prep for Sunday Discontinued home Reglan, senna given his ongoing diarrhea (2) Duodenitis: Plan: as above, seen on MRE continue PPI bid EGD planned for Sunday (3) Hx SBO: Plan: as above, likely from adhesions from previous hernia repair with bowel resection from strangulated bowel f/u Surgery as outpt (4) GIB (gastrointestinal bleeding): Plan: With acute blood loss anemia Report of visible blood in diarrhea by EMS. Hemoccult performed in the ER which was positive. Patient has been started on Protonix bolus and drip by the ER. Denies hematemesis. Suspect lower GI bleed although now with some melena on 11/01, no evidence of colitis on CT or MRE Hemoglobin has now dropped to 8.7 but stable from yesterday-will continue to follow CBC Consult GI Continue to hold aspirin and Plavix Okay to advance diet to low fiber Transfuse as needed-consent obtained Follow CBC (5) ROME (acute kidney injury): Plan: Creatinine up to 2.1 on admission, no baseline creatinine to follow but creatinine is down 1.15 with IV fluid hydration He is voiding Follow BMP Continue to hold home lisinopril--would NOT resume lisinopril on discharge (6) Acute blood loss anemia: Plan: As above (7) CAD (coronary artery disease): Plan: Chronic. With history of 2 stents in 2018 at [facility]. Patient denies chest pain Will hold aspirin and Plavix for now, then can likely restart only aspirin as it has been many years since his stent placement ECG with T wave inversions in lateral leads, no previous EKG to compare to. Troponin normal at 19 on admission Held atenolol and lisinopril due to hypotension and renal failure-can resume atenolol now as BPs rising Continue rosuvastatin Checked echocardiogram-dilated LA but otherwise normal (8) Obesity: Plan: Morbid obesity with BMI 40.5 (9) B12 deficiency: Plan: B12 level here checked due to anemia and poor nutrition-low at 180 start IM B12 1000mcg daily x 3 days, then po B12 Plan Disposition-continued stay DVT proph-SCDs Admission and Anticipated Discharge Date Admission Date: October 30, 2023 Subjective Pt reports having some mid abd pain today with drinking enteral contrast for MRI. Had a small black BM today, no BRBPR No CP, SOB Tele with SR, 1st degree AVB, bigeminy, rates 70-90s I discussed his care with Dr. Mandujano of GI Physical Exam Constitutional: WD/WN, vitals as above + obese Neck: trachea midline, no thyromegaly Respiratory: normal respiratory effort, lungs clear to auscultation Cardiovascular: RRR, no murmur, no edema Chest (Breasts): Chest: normal inspection of chest Gastrointestinal (Abdomen): normal bowel sounds, soft, nontender, no hepatosplenomegaly Musculoskeletal: Extremities: extremities normal to inspection; no cyanosis and no clubbing Skin: no rashes, warm and dry Neurologic: moves all extremities and awake; no focal motor deficits Psychiatric: A+Ox3, euthymic affect Lymphatic: no lymphedema Results & Data Results & Data Vital Signs (Past 12 Hours) Vital Signs Temp Pulse Pulse Resp BP Pulse Ox O2 Del Method 11/02/23 16:51 Room Air 11/02/23 15:42 36.4 C L 66 18 143/68 H 96 Room Air 11/02/23 11:35 36.7 C 76 18 117/52 L 97 Room Air 11/02/23 07:13 36.3 C L 69 18 148/90 H 95 Room Air 11/02/23 06:47 71 Laboratory Results CBC, BMP, magnesium reviewed BCxs NGTD Diagnostic Findings Enterography MRI 11/02/23 00:00 MR enterography wo/w con HISTORY: 63 years-old Male GI bleeding, chronic abdominal pain Chronic generalized abdominal pain. COMPARISON: CT abdomen and pelvis 10/30/2023. TECHNIQUE: MR enterography was obtained with and without IV contrast. FINDINGS: Right hemidiaphragmatic elevation. Motion degraded exam. The spleen is enlarged measuring up to 15 cm. Cardiomegaly. Right hip arthroplasty is not well evaluated secondary to micrometallic artifact. Probable particle disease surrounding the right hip is better seen on the corresponding comparison CT study. Osteoarthritis of the left hip with multilevel degenerative changes of the spine. Unchanged scoliotic curvature of the lumbar spine. Prostatomegaly with suggested sequela of chronic bladder outlet obstruction. Unremarkable liver, gallbladder and adrenal glands. East-gp-zxiojokl pancreatic atrophy. Mild cortical thinning of the kidneys with bilateral perinephric stranding. No hydronephrosis. A 1.2 cm T2 hyperintense probable cyst of the interpolar right kidney. No abdominal aortic aneurysm or lymphadenopathy. Focal circumferential wall thickening is again noted involving the junction of the second and third portions of the duodenum demonstrating increased enhancement. Colonic diverticulosis. No bowel obstruction or free-fluid is identified. No small bowel lesions, strictures or otherwise significant bowel wall thickening is identified. No evidence of acute appendicitis. IMPRESSION: 1. Circumferential wall thickening with increased enhancement of the duodenum at the junction of the second and third portions is nonspecific and may represent a nonspecific duodenitis versus peptic ulcer disease. This could be correlated with endoscopy to exclude a mucosal lesion. 2. Motion degraded exam without bowel obstruction or additional areas of significant bowel wall thickening is identified. 3. Colonic diverticulosis. ACT 112: Negative or not required by law. The above report was generated using voice recognition software. It may contain grammatical, syntax or spelling errors. Dictated: 11/02/2023 12:19 PM Transcribed: 11/02/2023 12:45 PM Mikey [id number] [email or web address] Electronically signed by: All Bolaños M.D. 11/02/2023 1:09 PM PG Care Time/CCT Total # of Minutes Spent Total Time Spent with Patient: Total time spent is greater than 50% in coordination of care (as documented) at patient's floor/unit and/or counseling patient: Coding Level of Care Code 83442 SUB INP/OBS CARE 2/35MIN Diagnoses Abdominal pain R10.9 Duodenitis K29.80 Hx SBO Z87.19 GIB (gastrointestinal bleeding) K92.2 ROME (acute kidney injury) N17.9 Acute blood loss anemia D62 CAD (coronary artery disease) I25.10 Obesity E66.9 B12 deficiency E53.8
[2023-11-02] MEDS: ATENOLOL 25 MG TABLET PO SCH (20:04)
[2023-11-03 07:19] LABS: Basophils # (auto) 0.02 K/uL (0.00-0.20); Basophils % (auto) 0.3 %; Eosinophils # (auto) 0.22 K/uL (0.00-0.50); Eosinophils % (auto) 3.8 %; Hematocrit (blood only) 28.7 % (42.0-52.0); Hemoglobin 9.4 g/dl (14.0-18.0); Immature Granulocytes # (auto) 0.01 K/uL (0.01-0.20); Immature Granulocytes % (auto) 0.2 %; Lymphocytes # (auto) 1.48 K/uL (1.20-3.40); Lymphocytes % (auto) 25.7 %; Mean Corpuscular Hemoglobin 28.3 pg (25.0-34.0); Mean Corpuscular Hgb Conc 32.8 g/dL (32.0-36.0); Mean Corpuscular Volume 86.4 fL (80.0-100.0); Mean Platelet Volume 10.7 fL (9.4-12.4); Neutrophils # (auto) 3.62 K/uL (1.40-6.50); Platelet Count 152 K/uL (130-400); RDW Coefficient of Variation 14.6 % (11.5-14.5); RDW Standard Deviation 45.1 fL (36.4-46.3); Red Blood Count 3.32 M/uL (4.70-6.10); White Blood Count 5.75 K/ul (4.8-10.8)
[2023-11-03 07:43] LABS: BUN Creatinine Ratio 16.4 (10-20); Calcium 8.4 mg/dl (8.6-10.3); Est GFR (African American) 73.2 ml/min; Est GFR (Non-African American) 63.1 ml/min; Magnesium 1.9 mg/dl (1.7-2.4); Potassium 4.3 mmol/L (3.5-5.1)
--- NOTE | 2023-11-03 20:36 | Hospitalist Progress Note ---
Date of Service November 03, 2023 Assessment & Plan (1) Abdominal pain: Plan: This pt is a 63-year-old male presenting with 4 weeks of intermittent abdominal pain. Patient has had multiple hospital stays in the past several weeks for recurrent SBOs requiring NGT as well as one admission for more PSBO/ileus likely on basis of adhesions. Each time he presents with N/V, severe abdominal pain, ROME, and leukocytosis. Here he was hypotensive on arrival which improved after IV fluids. He had leukocytosis with WBC = 14.86 which resolved without antibiotics. With dehydration, ROME - continues to be improving. LFTs, lipase within normal limits. CT of the abdomen suggestive of diarrheal state, no additional findings of concern, specifically no obstruction or colitis Stool bio fire is negative as is C. difficile. Improving clinically, no need for antibiotics at this time Mesenteric Doppler grossly negative MRE shows thickened 2nd and 3rd portion of duodenum, possibly duodenitis vs mucosal lesion, otherwise negative Outside hospital records reviewed and he was seen by Surgery and recommended to be evaluated as an outpt for possible MALLORY-pt prefers to be seen by Surgery at [place]-consult Surgery here recommends no surgery at this time. Will have him f/u with Surgery as an outpt Abd pain resolved for the most part with some mild pain on 11/02 since starting low fiber diet Appreciate GI consultation-plan for EGD and colonoscopy when off of Plavix x 5 days -plan for Sunday-I confirmed this w/ Case on Sunday afternoon NPO after midnight Sunday night and will order bowel prep for Sunday Start clear liquids on Sunday at midnight Discontinued home Regjose e senna given his ongoing diarrhea (2) Duodenitis: Plan: as above, seen on MRE continue PPI bid but change from po back to IV EGD planned for Sunday (3) Hx SBO: Plan: as above, likely from adhesions from previous hernia repair with bowel resection from strangulated bowel f/u Surgery as outpt (4) GIB (gastrointestinal bleeding): Plan: With acute blood loss anemia Report of visible blood in diarrhea by EMS. Hemoccult performed in the ER which was positive. Patient has been started on Protonix bolus and drip by the ER. Denies hematemesis. Suspect lower GI bleed although now with some melena on 11/01, no evidence of colitis on CT or MRE Hemoglobin dropped to 8.7 and now improved to 9.4 since stopping IVFs-will continue to follow CBC Consult GI appreciated-plan for EGD/colo on Sunday Continue to hold aspirin and Plavix Transfuse as needed-consent obtained (5) ROME (acute kidney injury): Plan: Creatinine up to 2.1 on admission, baseline creatinine normal on outside labs - creatinine is down 1.2 with IV fluid hydration He is voiding Follow BMP Continue to hold home lisinopril--would NOT resume lisinopril on discharge given his frequent issues with SBO, hypotension, and recurrent ROME (6) Acute blood loss anemia: Plan: As above (7) CAD (coronary artery disease): Plan: Chronic. With history of 2 stents in 2018 at [facility]. Patient denies chest pain Will hold aspirin and Plavix for now, then can likely restart only aspirin as it has been many years since his stent placement ECG with T wave inversions in lateral leads, no previous EKG to compare to. Troponin normal at 19 on admission Held atenolol and lisinopril due to hypotension and renal failure-have since resumed atenolol as BPs rising Continue rosuvastatin Checked echocardiogram-dilated LA but otherwise normal (8) Obesity: Plan: Morbid obesity with BMI 40.5 (9) B12 deficiency: Plan: B12 level here checked due to anemia and poor nutrition-low at 180 started IM B12 1000mcg daily x 3 days, then po B12 to start after discharge Plan Disposition-continued stay, downgrade from tele DVT proph-SCDs Admission and Anticipated Discharge Date Admission Date: October 30, 2023 Subjective Pt reports feeling "a little bit of churning" in his mid abdomen but no nausea/vomiting. He has not moved his bowels at all today. No other concerns Physical Exam Constitutional: WD/WN, vitals as above + obese Neck: trachea midline, no thyromegaly Respiratory: normal respiratory effort, lungs clear to auscultation Cardiovascular: RRR, no murmur, no edema Chest (Breasts): Chest: normal inspection of chest Gastrointestinal (Abdomen): normal bowel sounds, soft, nontender, no hepatosplenomegaly Musculoskeletal: Extremities: extremities normal to inspection; no cyanosis and no clubbing Skin: no rashes, warm and dry Neurologic: moves all extremities and awake; no focal motor deficits Psychiatric: A+Ox3, euthymic affect Lymphatic: no lymphedema Results & Data Results & Data Vital Signs (Past 12 Hours) Vital Signs Temp Pulse Resp BP BP Pulse Ox O2 Del Method 11/03/23 19:18 36.6 C 66 16 125/80 95 Room Air 11/03/23 18:24 36.9 C 63 119/76 95 Room Air 11/03/23 15:22 36.6 C 58 L 18 116/77 95 Room Air 11/03/23 11:11 36.4 C L 63 18 114/75 96 Room Air 11/03/23 10:12 63 130/77 Laboratory Results CBC, BMP, magnesium, blood cxs reviewed PG Care Time/CCT Total # of Minutes Spent Total Time Spent with Patient: Total time spent is greater than 50% in coordination of care (as documented) at patient's floor/unit and/or counseling patient: Coding Level of Care Code 49141 SUB INP/OBS CARE 2/35MIN Diagnoses Abdominal pain R10.9 Duodenitis K29.80 Hx SBO Z87.19 GIB (gastrointestinal bleeding) K92.2 ROME (acute kidney injury) N17.9 Acute blood loss anemia D62 CAD (coronary artery disease) I25.10 Obesity E66.9 B12 deficiency E53.8
[2023-11-04 06:51] LABS: Basophils # (auto) 0.02 K/uL (0.00-0.20); Basophils % (auto) 0.3 %; Hematocrit (blood only) 31.4 % (42.0-52.0); Immature Granulocytes # (auto) 0.01 K/uL (0.01-0.20); Immature Granulocytes % (auto) 0.1 %; Lymphocytes # (auto) 2.31 K/uL (1.20-3.40); Mean Corpuscular Hemoglobin 28.1 pg (25.0-34.0); Mean Corpuscular Hgb Conc 31.8 g/dL (32.0-36.0); Mean Corpuscular Volume 88.2 fL (80.0-100.0); Mean Platelet Volume 10.3 fL (9.4-12.4); Monocytes # (auto) 0.46 K/uL (0.11-0.59); Monocytes % (auto) 6.4 %; Neutrophils # (auto) 4.41 K/uL (1.40-6.50); Neutrophils % (auto) 61.2 %; Platelet Count 170 K/uL (130-400); RDW Coefficient of Variation 14.5 % (11.5-14.5); RDW Standard Deviation 45.9 fL (36.4-46.3); Red Blood Count 3.56 M/uL (4.70-6.10); White Blood Count 7.21 K/ul (4.8-10.8)
[2023-11-04 07:12] LABS: BUN Creatinine Ratio 16.5 (10-20); Calcium 8.4 mg/dl (8.6-10.3); Creatinine Clr Calc Pharmacy 88.4 ml/min; Est GFR (African American) 83.9 ml/min; Est GFR (Non-African American) 72.4 ml/min; Potassium 4.4 mmol/L (3.5-5.1)
[2023-11-04] MEDS: PANTOprazole 40 MG in SYRINGE 0 ML IV SCH (09:16)
[2023-11-04] MEDS: LAVAGE SOLUTION 4000ML PO SCH (18:40)
--- NOTE | 2023-11-04 18:56 | Hospitalist Progress Note ---
Date of Service November 04, 2023 Assessment & Plan (1) Abdominal pain: Plan: This pt is a 63-year-old male presenting with 4 weeks of intermittent abdominal pain. Patient has had multiple hospital stays at outside hospitals in the past several weeks for recurrent SBOs requiring NGT as well as one admission for more PSBO/ileus likely on basis of adhesions. Each time he presents with N/V, severe abdominal pain, ROME, and leukocytosis. Here he was hypotensive on arrival which improved after IV fluids. He had leukocytosis with WBC = 14.86 which resolved without antibiotics. With dehydration, ROME - continues to be improving. LFTs, lipase within normal limits. CT of the abdomen suggestive of diarrheal state, no additional findings of concern, specifically no obstruction or colitis Stool bio fire is negative as is C. difficile. Improving clinically, no need for antibiotics at this time Mesenteric Doppler grossly negative MRE shows thickened 2nd and 3rd portion of duodenum, possibly duodenitis vs mucosal lesion, otherwise negative Outside hospital records reviewed and he was seen by Surgery and recommended to be evaluated as an outpt for possible MALLORY-pt prefers to be seen by Surgery at [place]-consult Surgery here recommends no surgery at this time. Will have him f/u with Surgery as an outpt Abd pain resolved for the most part with some mild pain on 11/02 since starting low fiber diet Appreciate GI consultation-plan for EGD and colonoscopy when off of Plavix x 5 days -plan for Sunday-I confirmed this w/ Case on Sunday afternoon NPO after midnight Sunday night and will order bowel prep for Sunday Discontinued home Reglan, senna given his ongoing diarrhea (2) Duodenitis: Plan: as above, seen on MRE continue PPI bid IV EGD planned for Sunday (3) Hx SBO: Plan: as above, likely from adhesions from previous hernia repair with bowel resection from strangulated bowel f/u Surgery as outpt-Nurse navigator consulted to arrange this appt (4) GIB (gastrointestinal bleeding): Plan: With acute blood loss anemia Report of visible blood in diarrhea by EMS. Hemoccult performed in the ER which was positive. Continue PPI although seems like lower GIB Suspect lower GI bleed although now with some melena on 11/01, no evidence of colitis on CT or MRE Hemoglobin dropped to 8.7 and now improved to 10 since stopping IVFs-will continue to follow CBC Consult GI appreciated-plan for EGD/colo on Sunday Continue to hold aspirin and Plavix Transfuse as needed-consent obtained (5) ROME (acute kidney injury): Plan: Creatinine up to 2.1 on admission, baseline creatinine normal on outside labs - creatinine is down 1.0 with IV fluid hydration He is voiding resume IVFs while doing bowel prep overnight Follow BMP Continue to hold home lisinopril--would NOT resume lisinopril on discharge given his frequent issues with SBO, hypotension, and recurrent ROME (6) Acute blood loss anemia: Plan: As above (7) CAD (coronary artery disease): Plan: Chronic. With history of 2 stents in 2018 at [facility]. Patient denies chest pain Will hold aspirin and Plavix for now, then can likely restart only aspirin as it has been many years since his stent placement ECG with T wave inversions in lateral leads, no previous EKG to compare to. Troponin normal at 19 on admission Held atenolol and lisinopril due to hypotension and renal failure-have since resumed atenolol as BPs rising Continue rosuvastatin Checked echocardiogram-dilated LA but otherwise normal (8) Obesity: Plan: Morbid obesity with BMI 40.5 (9) B12 deficiency: Plan: B12 level here checked due to anemia and poor nutrition-low at 180 started IM B12 1000mcg daily x 3 days, then po B12 to start after discharge Plan Disposition-continued stay, EGD/colo Sunday and then likely stay overnight to advance diet and dc Sunday DVT proph-SCDs Admission and Anticipated Discharge Date Admission Date: October 30, 2023 Subjective Pt denies abd pains, no bloody stools, no SOB, chest pain. Physical Exam Constitutional: WD/WN, vitals as above + obese Neck: trachea midline, no thyromegaly Respiratory: normal respiratory effort, lungs clear to auscultation Cardiovascular: RRR, no murmur, no edema Chest (Breasts): Chest: normal inspection of chest Gastrointestinal (Abdomen): normal bowel sounds, soft, nontender, no hepatosplenomegaly Musculoskeletal: Extremities: extremities normal to inspection; no cyanosis and no clubbing Skin: no rashes, warm and dry Neurologic: moves all extremities and awake; no focal motor deficits Psychiatric: A+Ox3, euthymic affect Lymphatic: no lymphedema Results & Data Results & Data Vital Signs (Past 12 Hours) Vital Signs Temp Pulse Resp BP BP Pulse Ox O2 Del Method 11/04/23 14:42 36.9 C 71 18 108/70 96 Room Air 11/04/23 07:10 36.5 C 55 L 16 151/77 H 96 Room Air Laboratory Results CBC, BMP reviewed blood cxs no growth PG Care Time/CCT Total # of Minutes Spent Total Time Spent with Patient: Total time spent is greater than 50% in coordination of care (as documented) at patient's floor/unit and/or counseling patient: Coding Level of Care Code 30937 SUB INP/OBS CARE 2/35MIN Diagnoses Abdominal pain R10.9 Duodenitis K29.80 Hx SBO Z87.19 GIB (gastrointestinal bleeding) K92.2 ROME (acute kidney injury) N17.9 Acute blood loss anemia D62 CAD (coronary artery disease) I25.10 Obesity E66.9 B12 deficiency E53.8
[2023-11-04] MEDS: LACTATED RINGER'S 1,000 ML IV SCH (19:29)
[2023-11-05 08:28] LABS: Basophils # (auto) 0.02 K/uL (0.00-0.20); Basophils % (auto) 0.4 %; Hematocrit (blood only) 32.4 % (42.0-52.0); Hemoglobin 10.5 g/dl (14.0-18.0); Immature Granulocytes # (auto) 0.01 K/uL (0.01-0.20); Immature Granulocytes % (auto) 0.2 %; Lymphocytes # (auto) 1.09 K/uL (1.20-3.40); Lymphocytes % (auto) 20.5 %; Mean Corpuscular Hemoglobin 28.1 pg (25.0-34.0); Mean Corpuscular Hgb Conc 32.4 g/dL (32.0-36.0); Mean Corpuscular Volume 86.6 fL (80.0-100.0); Mean Platelet Volume 10.3 fL (9.4-12.4); Monocytes # (auto) 0.35 K/uL (0.11-0.59); Monocytes % (auto) 6.6 %; Neutrophils # (auto) 3.85 K/uL (1.40-6.50); Neutrophils % (auto) 72.3 %; Platelet Count 186 K/uL (130-400); RDW Coefficient of Variation 14.6 % (11.5-14.5); RDW Standard Deviation 45.6 fL (36.4-46.3); Red Blood Count 3.74 M/uL (4.70-6.10); White Blood Count 5.32 K/ul (4.8-10.8)
[2023-11-05 08:48] LABS: BUN Creatinine Ratio 14.4 (10-20); Calcium 8.9 mg/dl (8.6-10.3); Creatinine Clr Calc Pharmacy 99.3 ml/min; Est GFR (African American) 96.6 ml/min; Est GFR (Non-African American) 83.3 ml/min; Potassium 4.9 mmol/L (3.5-5.1)
--- NOTE | 2023-11-05 09:57 | History & Physical Bridge Note ---
Date of Service November 05, 2023 History & Physical Bridge Note I have examined the patient, reviewed the History & Physical and in the interval since the performance of the History & Physical I have noted the following changes of clinical significance: no changes noted. patient with history of abdominal pain and SBO. currently pain has resolved but he admits to 5 episodes in the past year. he tolerated his prep. his stools have been clear per nursing. patient denies any SOB/Chest pain. he is planned for EGD and colonoscopy today with Dr. Mandujano. Supervising Physician Co-Signing Physician Notes Agree with RYDER Tejada as above Abd: Soft, tender, ND, +BS Continue current therapy and supportive care Proceed with EGD and colonoscopy now.
--- NOTE | 2023-11-05 13:50 | Anesthesiology Consultation ---
Date of Service November 05, 2023 Assessment & Plan Chart Review Chart Review: Acceptable Risk for Surgery and Patient NOT seen in Pre Admission Testing History Surgery Operation Date: 11/05/23 16:30 Proposed Procedures p Colonoscopy EGD Dr. Delbert Mandujano, DO Height/Weight Height: 5 ft 8 in Weight: 119.7 kg Allergies Allergy/AdvReac Type Severity Reaction Status Date / Time adhesive Allergy Intermediate SKIN Verified 10/30/23 21:35 IRRITATION Medications Home Medications Medication Instructions Recorded Confirmed Last Taken aspirin 81 mg tablet,delayed 81 mg PO DAILY 10/30/23 10/30/23 Unknown release atenolol 25 mg tablet 25 mg PO DAILY 10/30/23 10/30/23 Unknown clopidogrel 75 mg tablet 75 mg PO DAILY 10/30/23 10/30/23 Unknown duloxetine 60 mg capsule,delayed 60 mg PO DAILY 10/30/23 10/30/23 Unknown release gabapentin 100 mg capsule 100 mg PO TID 10/30/23 10/30/23 Unknown lisinopril 5 mg tablet 10 mg PO DAILY 10/30/23 10/30/23 Unknown metoclopramide HCl 10 mg tablet 10 mg PO ACHS 10/30/23 10/30/23 Unknown rosuvastatin 10 mg tablet 10 mg PO HS 10/30/23 10/30/23 Unknown sennosides 8.6 mg tablet (senna) 17.2 mg PO QPM 10/30/23 10/30/23 Unknown Active Medications Generic Name Dose Route Start Last Admin Trade Name Freq PRN Reason Stop Dose Admin Acetaminophen 650 mg 10/31/23 02:55 11/05/23 01:39 Acetaminophen 325 Mg Tab PO 11/30/23 02:54 650 mg Q4H PRN Administration pain/fever Atenolol 25 mg 11/02/23 17:15 11/05/23 08:40 Atenolol 25 Mg Tablet PO 12/02/23 17:14 25 mg DAILY MABROSE Administration Duloxetine HCl 60 mg 10/31/23 09:00 11/05/23 08:25 Duloxetine Hcl 60 Mg Cap PO 11/30/23 08:59 60 mg DAILY AMBROSE Administration Gabapentin 100 mg 10/31/23 09:00 11/05/23 08:25 Gabapentin 100 Mg Cap PO 11/30/23 08:59 100 mg TID AMBROSE Administration Pantoprazole Sodium 40 mg/ 10 mls @ 5 mls/min 11/04/23 09:00 11/05/23 08:25 Syringe IV 12/04/23 08:59 5 mls/min BID AMBROSE Administration Lactated Ringer's 1,000 mls @ 80 mls/hr 11/04/23 19:00 11/05/23 08:25 Lr IV 12/04/23 18:59 80 mls/hr .[id number] AMBROSE Administration Melatonin 3 mg 11/01/23 21:00 11/04/23 20:04 Melatonin 3 Mg Tab PO 12/01/23 20:59 3 mg HS AMBROSE Administration Rosuvastatin Calcium 10 mg 10/31/23 21:00 11/04/23 20:02 Rosuvastatin Calcium 10 Mg Tab PO 11/30/23 20:59 10 mg HS AMBROSE Administration NPO Date Last Intake of Fluids: 11/05/23 Time Last Intake of Fluids: 08:25 Date Last Intake of Solids: 11/03/23 Time Last Intake of Solids: 17:30 Past Medical History Medical History B12 deficiency Obesity SBO (small bowel obstruction) HLD (hyperlipidemia) HTN (hypertension) Past Family History Family History Other Family history non-contributory Past Surgical History Surgical History History of total knee arthroplasty History of total hip arthroplasty S/P colectomy Social History Smoking Status: Former smoker Smoking cigarettes per day: 1 Do You Dip or Chew Tobacco: No Smoking End Date: 30 years ago per patient Hx Alcohol Use: No Hx Substance Use: No Physical Exam Vital Signs Last Vital Signs Temp 36.3 C L 11/05/23 13:48 Pulse 64 11/05/23 13:48 Resp 16 11/05/23 13:48 BP 162/76 H 11/05/23 13:48 Pulse Ox 98 11/05/23 13:48 O2 Del Method Room Air 11/05/23 13:48 Testing Laboratory Results 11/05/23 07:59 11/05/23 07:59 PT 11.5 Seconds (9.0-12.0) 10/30/23 21:13 INR 1.1 (0.9-1.1) 10/30/23 21:13 APTT 24 Seconds (21-31) 10/30/23 21:13 Urine Color Yellow 10/31/23 Unknown Urine Appearance Clear (Clear) 10/31/23 Unknown Urine pH 5.0 (4.5-7.5) 10/31/23 Unknown Ur Specific [place] 1.019 (1.000-1.030) 10/31/23 Unknown Urine Protein Trace (Negative) H 10/31/23 Unknown Urine Glucose (UA) 1+ (Negative) H 10/31/23 Unknown Urine Ketones Trace (Negative) H 10/31/23 Unknown Urine Nitrite Negative (Negative) 10/31/23 Unknown Ur Leukocyte Esterase Negative (Negative) 10/31/23 Unknown Urine WBC (Auto) 1-5 /hpf (0-5) 10/31/23 Unknown Urine RBC (Auto) 0-4 /hpf (0-4) 10/31/23 Unknown U Hyaline Cast (Auto) 5-10 /lpf (0-5) H 10/31/23 Unknown U Epithel Cells (Auto) 10-20 /lpf (0-5) H 10/31/23 Unknown Urine Bacteria (Auto) Negative (Negative) 10/31/23 Unknown Blood Type A Positive 10/30/23 21:13 Antibody Screen NEGATIVE 10/30/23 21:13 10/30/23 21:13 Aerobic Blood Culture - Final Blood No growth in Aerobic bottle after 5 days. Anaerobic Blood Culture - Final No growth in Anaerobic bottle after 5 days. 10/30/23 22:07 Aerobic Blood Culture - Final Blood No growth in Aerobic bottle after 5 days. Anaerobic Blood Culture - Final No growth in Anaerobic bottle after 5 days.
--- NOTE | 2023-11-05 14:31 | Hospitalist Progress Note ---
Date of Service November 05, 2023 Assessment & Plan (1) Abdominal pain: Plan: CT of the abdomen suggestive of benign enteritis. C. difficile toxin assay negative. CT abdomen and pelvis negative for obstruction on admission. (2) Duodenitis: Plan: seen on MRE on admission. Appreciate GI consultation and recommendations. Upper and lower endoscopy later today, November 04. Continue PPI therapy and Carafate. (3) Hx SBO: Plan: likely from adhesions from previous hernia repair with bowel resection for strangulated bowel. No current bowel obstruction (4) GIB (gastrointestinal bleeding): Plan: With acute blood loss anemia. Plavix is on hold. Serial labs. No gross melena or or hematochezia. Hemoglobin is stable. (5) ROME (acute kidney injury): Plan: Present on admission. Now resolved with IV fluids. Monitor intake and output. Serial labs. Lisinopril remains on hold. (6) Acute blood loss anemia: Plan: Hemoglobin has stabilized. He has not required blood transfusion. Serial labs (7) CAD (coronary artery disease): Plan: Stable. History of PCI. Continue current medical management. Telemetry. Lisinopril is on hold (8) Obesity: Plan: BMI is greater than 40. Significant weight loss recommended (9) B12 deficiency: Plan: Stable. Continue B12 supplementation. Plan Eventual discharge to home. Hopefully tomorrowNovember 05 Admission and Anticipated Discharge Date Admission Date: October 30, 2023 Subjective Alert and oriented. No complaints. Awaiting upper and lower endoscopy later today per GI. Hemoglobin stable at 10.5. Creatinine now normalized at 0.9. Plavix and lisinopril remain on hold. Possible discharge to home tomorrowNovember 05 Review of Systems 2 Review of Systems: Constitutional-no fever or chills ENT-no blurred vision, no double vision, no epistaxis, no sore throat Respiratory-no cough, no wheezing, no shortness of breath Cardiac-no palpitations, no chest pain, no syncope GI-no nausea, vomiting, diarrhea, melena, hematochezia -no urinary retention, no urinary incontinence, no dysuria, no hematuria Musculoskeletal-no joint pain, no muscle tenderness Skin-no bruising, no rashes, no pruritus Neuro-no isolated weakness, no paresthesia, no weakness Psych-no depression, no anxiety Physical Exam 2 Physical Exam: General-alert and oriented x3, no fever, no chills HEENT-head atraumatic and normocephalic, pupils equal and reactive to light, extraocular muscles intact Neck-no lymphadenopathy or thyromegaly, trachea midline Chest-clear to auscultation. No rales, wheezing or rhonchi Cardiac-regular rate and rhythm, normal S1 and S2 Abdomen-normal bowel sounds, nontender, no hepatosplenomegaly Extremities-no cyanosis, clubbing, or edema Neuro-cranial nerves II through XII intact, motor and sensory function within normal limits, strength symmetrical, no focal deficits Psych-normal affect, normal mood Results & Data Results & Data Vital Signs (Past 12 Hours) Vital Signs Temp Pulse Resp BP Pulse Ox O2 Del Method 11/05/23 13:48 36.3 C L 64 16 162/76 H 98 Room Air 11/05/23 08:00 36.6 C 101 H 18 161/94 H 90 Room Air Laboratory Results Abnormal lab results 11/05/23 Range/Units 07:59 RBC 3.74 L (4.70-6.10) M/uL Hgb 10.5 L (14.0-18.0) g/dl Hct 32.4 L (42.0-52.0) % RDW Coeff of Teresa 14.6 H (11.5-14.5) % Lymph # (Auto) 1.09 L (1.20-3.40) K/uL Glucose 105 H (70-99(Fasting)) mg/dl 11/05/23 07:59 11/05/23 07:59 PG Care Time/CCT Total # of Minutes Spent Total Time Spent with Patient: Total time spent is greater than 50% in coordination of care (as documented) at patient's floor/unit and/or counseling patient: Coding Level of Care Code 39654 SUB INP/OBS CARE 3/50MIN Diagnoses Abdominal pain R10.9 Duodenitis K29.80 Hx SBO Z87.19 GIB (gastrointestinal bleeding) K92.2 ROME (acute kidney injury) N17.9 Acute blood loss anemia D62 CAD (coronary artery disease) I25.10 Obesity E66.9 B12 deficiency E53.8
--- NOTE | 2023-11-05 15:52 | Anesthesiology Progress Note ---
Date of Service November 05, 2023 Anesthesia Post Procedure Vital Signs Vital Signs: Temp Pulse Resp BP Pulse Ox O2 Del Method 11/05/23 15:45 58 L 16 96/71 L 97 Room Air 11/05/23 13:48 36.3 C L 64 16 162/76 H 98 Room Air 11/05/23 08:00 36.6 C 101 H 18 161/94 H 90 Room Air 11/04/23 20:17 36.5 C 64 16 127/81 97 Room Air Transfer of Care Handoff Completed per policy Notes Mental Status: alert / awake / arousable and participated in evaluation Patient Amnestic to Procedure: Yes Nausea / Vomiting: adequately controlled Pain: adequately controlled Airway Patency, RR, SpO2: stable & adequate BP & HR: stable & adequate Hydration State: stable & adequate Anesthetic Complications: no major complications apparent and Pt Satisfied with anesthetic care
--- NOTE | 2023-11-05 16:01 | GI REPORT ---
Patient Name: Michael Reich Procedure Date: 11/05/2023 3:00 PM Date of : 1960 Admit Type: Inpatient Age: 63 Gender: Male Attending MD: Asher Mandujano DO, Procedure: Colonoscopy Providers: Asher Mandujano DO Referring MD: Referred Self Indications: Generalized abdominal pain Medicines: Monitored Anesthesia Care Complications: No immediate complications. Estimated Blood Loss: Estimated blood loss: none. Procedure: Pre-Anesthesia Assessment: - Prior to the procedure, a History and Physical was performed, and patient medications and allergies were reviewed. The patient's tolerance of previous anesthesia was also reviewed. The risks and benefits of the procedure and the sedation options and risks were discussed with the patient. All questions were answered, and informed consent was obtained. Prior Anticoagulants: The patient has taken Plavix (clopidogrel), last dose was 6 days prior to procedure. ASA Grade Assessment: III - A patient with severe systemic disease. After reviewing the risks and benefits, the patient was deemed in satisfactory condition to undergo the procedure. After I obtained informed consent, the scope was passed under direct vision. Throughout the procedure, the patient's blood pressure, pulse, and oxygen saturations were monitored continuously. The Colonoscope was introduced through the anus and advanced to the terminal ileum. The colonoscopy was performed without difficulty. The patient tolerated the procedure well. The quality of the bowel preparation was good. The terminal ileum, ileocecal valve, appendiceal orifice, and rectum were photographed. Findings: The perianal and digital rectal examinations were normal. A 5 mm polyp was found in the sigmoid colon. The polyp was sessile. The polyp was removed with a hot snare. Resection and retrieval were complete. Multiple small-mouthed diverticula were found in the sigmoid colon. Non-bleeding internal hemorrhoids were found during retroflexion. The hemorrhoids were small. Impression: - One 5 mm polyp in the sigmoid colon, removed with a hot snare. Resected and retrieved. - Diverticulosis in the sigmoid colon. - Non-bleeding internal hemorrhoids. Recommendation: - Resume previous diet. - Continue present medications. - Repeat colonoscopy for surveillance based on pathology results. - Return to primary care physician as previously scheduled. Asher Mandujano DO 11/05/2023 4:01:11 PM This report has been signed electronically. Note Initiated On: 11/05/2023 3:00 PM Number of Addenda: 0 I attest to the content of the Intraoperative Record and orders documented therein, exceptions below {[id number]}
--- NOTE | 2023-11-05 16:07 | GI REPORT ---
Patient Name: Michael Reich Procedure Date: 11/05/2023 3:00 PM Date of : 1960 Admit Type: Inpatient Age: 63 Gender: Male Attending MD: Asher Mandujano DO, Procedure: Upper GI endoscopy Providers: Asher Mandujano DO Referring MD: Referred Self Indications: Generalized abdominal pain Medicines: Monitored Anesthesia Care Complications: No immediate complications. Estimated Blood Loss: Estimated blood loss: none. Procedure: Pre-Anesthesia Assessment: - Prior to the procedure, a History and Physical was performed, and patient medications and allergies were reviewed. The patient's tolerance of previous anesthesia was also reviewed. The risks and benefits of the procedure and the sedation options and risks were discussed with the patient. All questions were answered, and informed consent was obtained. Prior Anticoagulants: The patient has taken Plavix (clopidogrel), last dose was 6 days prior to procedure. ASA Grade Assessment: III - A patient with severe systemic disease. After reviewing the risks and benefits, the patient was deemed in satisfactory condition to undergo the procedure. After obtaining informed consent, the endoscope was passed under direct vision. Throughout the procedure, the patient's blood pressure, pulse, and oxygen saturations were monitored continuously. The Colonoscope was introduced through the mouth, and advanced to the jejunum. The upper GI endoscopy was accomplished without difficulty. The patient tolerated the procedure well. Findings: The esophagus was normal. A small hiatal hernia was present. Localized moderate inflammation characterized by erythema was found in the gastric antrum. Biopsies were taken with a cold forceps for histology. Two non-bleeding cratered duodenal ulcers with no stigmata of bleeding were found in the duodenal bulb. The largest lesion was 10 mm in largest dimension. The examined jejunum was normal. Impression: - Normal esophagus. - Small hiatal hernia. - Gastritis. Biopsied. - Non-bleeding duodenal ulcers with no stigmata of bleeding. - Normal examined jejunum. Recommendation: - [facility]. - Advance diet as tolerated. - Continue present medications. - Continue Protonix 40 mg by mouth twice daily for 8 weeks, then once daily thereafter - Resume Plavix in 5 days. - Await pathology results. - Return to GI office in 6 weeks. Asher Mandujano DO 11/05/2023 4:06:33 PM This report has been signed electronically. Note Initiated On: 11/05/2023 3:00 PM Number of Addenda: 0 I attest to the content of the Intraoperative Record and orders documented therein, exceptions below {[id number]}
[2023-11-05] MEDS: PROPOFOL IV EMULSION 10 MG/ML 20 ML VIAL IV ONE (17:05)
[2023-11-05] MEDS: LIDOCAINE 2% 2 ML VIAL/AMP(20MG/ML) INFIL ONE (17:05)
[2023-11-06 07:02] LABS: Basophils # (auto) 0.02 K/uL (0.00-0.20); Basophils % (auto) 0.4 %; Eosinophils # (auto) 0.02 K/uL (0.00-0.50); Eosinophils % (auto) 0.4 %; Hemoglobin 9.6 g/dl (14.0-18.0); Immature Granulocytes # (auto) 0.02 K/uL (0.01-0.20); Immature Granulocytes % (auto) 0.4 %; Lymphocytes # (auto) 1.15 K/uL (1.20-3.40); Lymphocytes % (auto) 23.4 %; Mean Corpuscular Hemoglobin 27.8 pg (25.0-34.0); Mean Platelet Volume 10.2 fL (9.4-12.4); Monocytes # (auto) 0.35 K/uL (0.11-0.59); Monocytes % (auto) 7.1 %; Neutrophils # (auto) 3.35 K/uL (1.40-6.50); Neutrophils % (auto) 68.3 %; Platelet Count 183 K/uL (130-400); RDW Coefficient of Variation 14.6 % (11.5-14.5); RDW Standard Deviation 45.9 fL (36.4-46.3); Red Blood Count 3.45 M/uL (4.70-6.10); White Blood Count 4.91 K/ul (4.8-10.8)
[2023-11-06 07:28] LABS: BUN Creatinine Ratio 10.8 (10-20); Calcium 8.3 mg/dl (8.6-10.3); Creatinine Clr Calc Pharmacy 103.6 ml/min; Est GFR (African American) 101.6 ml/min; Est GFR (Non-African American) 87.7 ml/min; Potassium 4.1 mmol/L (3.5-5.1)
[2023-11-06] MEDS: CYANOCOBALAMIN (B-12) 500 MCG TABLET PO SCH (08:14)
[2023-11-06] MEDS: lisinopril 10 MG TAB PO SCH (11:03)
--- NOTE | 2023-11-06 12:13 | Discharge Summary ---
Date of Service November 06, 2023 Admission HPI Per Admitting Provider Michael Reich is a 63-year-old male with history of coronary artery disease status post 2 stents placed 6-7 years ago, hypertension and arthritis presenting from home with severe abdominal pain. Patient with history of strangulated hernia with resection of 6 inches of his bowel over 30 years ago. Has not had any abdominal surgeries since. Patient has been having episodes of abdominal pain intermittently over the last 4 weeks. He has had multiple hospital stays over the last 4 weeks at outside facilities. First at [facility] with subsequent transfer to [place], then at [facility] with subsequent transfer to [place] and most recently on 10/26/2023 at [facility]. No records available at this time for these hospitalizations. Patient states that he has been dealing with "blocked bowels" for the last year. He reports episodes of severe lower abdominal pain, 10/10 as well as feeling of fullness. Poor appetite and decreased oral intake. Chills and sweats as well, generalized weakness and multiple episodes of diarrhea. Patient denies obvious blood in his stool. He denies nausea/vomiting at this time but has had associated vomiting with these episodes in the past. Patient hypotensive on arrival to the ER with blood pressure of 73/48. He was administered 2 L of crystalloid fluid with improvement of blood pressure to 94/67. He was told that his diarrhea had visible blood by EMS. Hemoccult was performed which was positive ER course: Protonix bolus and drip, normal saline Principal Diagnosis Multiple duodenal ulcers, benign colon polyp, upper GI bleed, acute kidney injury, acute blood loss anemia Discharge Exam General-alert and oriented x3, no fever, no chills HEENT-head atraumatic and normocephalic, pupils equal and reactive to light, extraocular muscles intact Neck-no lymphadenopathy or thyromegaly, trachea midline Chest-clear to auscultation. No rales, wheezing or rhonchi Cardiac-regular rate and rhythm, normal S1 and S2 Abdomen-normal bowel sounds, nontender, no hepatosplenomegaly Extremities-no cyanosis, clubbing, or edema Neuro-cranial nerves II through XII intact, motor and sensory function within normal limits, strength symmetrical, no focal deficits Psych-normal affect, normal mood Discharge Data Allergies Allergy/AdvReac Type Severity Reaction Status Date / Time adhesive Allergy Intermediate SKIN Verified 10/30/23 21:35 IRRITATION Consultations 10/30/23 23:07 ED Decision to Admit Stat 10/30/23 23:53 Consult Gastroenterology Routine 11/01/23 17:18 Consult General Surgery Routine 11/04/23 18:54 Consult JOSE L senior control systems engineer Routine Procedures Performed Operation Date: 11/05/23 16:30 Actual Procedures s EGD Biopsy Cytology(Not Applicable) - Asher Sanderson Case, DO p Colonoscopy Polypectomy(Not Applicable) - Asher Sanderson Case, DO Ordered Studies 10/30/23 21:30 CT abd pelvis wo con Stat 11/01/23 US duplex mesenteric Routine 11/02/23 00:00 MR enterography wo/w con Routine Hospital Course (1) Abdominal pain: CT of the abdomen suggestive of benign enteritis. C. difficile toxin assay negative. CT abdomen and pelvis negative for obstruction on admission. Abdominal pain is most likely due to the duodenal ulcers (2) Duodenitis: seen on MRE on admission. Appreciate GI consultation and recommendations. Upper and lower endoscopy completed on November 04. Multiple duodenal ulcers found along with a benign-appearing colon polyp that was removed. He will continue PPI therapy and Carafate at discharge. (3) Hx SBO: likely from adhesions from previous hernia repair with bowel resection for strangulated bowel. No current bowel obstruction (4) GIB (gastrointestinal bleeding): With acute blood loss anemia. Plavix is on hold and will remain on hold for 1 more week postdischarge.. Serial labs. No gross melena or or hematochezia. Hemoglobin is stable. (5) ROME (acute kidney injury): Present on admission. Now resolved with IV fluids. Monitor intake and output. Serial labs. Lisinopril has been restarted (6) Acute blood loss anemia: Hemoglobin has stabilized. He has not required blood transfusion. Serial labs (7) CAD (coronary artery disease): Stable. History of PCI. Continue current medical management. Telemetry. (8) Obesity: BMI is greater than 40. Significant weight loss recommended (9) B12 deficiency: Stable. Continue B12 supplementation. Plan Home today, November 05. Plavix will remain on hold for 1 more week. He will take Protonix twice a day for 8 weeks then once a day thereafter. He will also remain on Carafate for 2 weeks. Total Time Total Time Spent Total Time Spent (In Minutes): 45 minutes Discharge Plan Discharge Items Patient Disposition: Home - Self-Care Reason For Visit: ABDOMINAL PAIN, DIARRHEA Discharge Diagnosis: Multiple duodenal ulcers, benign colon polyp, GI bleed, acute blood loss anemia, acute kidney injury Activity: Resume your previous activity Non-emergency contact: Primary Care Provider Call non-emergency contact if: you have any medication questions and your symptoms worsen Follow-up/Referrals: Roselyn Lange PA-C [Primary Care Provider] - Diet: Regular and Heart Healthy Addtl Attending Provider Instructions: Take Protonix 40 mg twice daily for 8 weeks then once daily thereafter. Take Carafate for 2 weeks. Plavix remains on hold for 1 more week. Follow-up with primary care provider to review pathology report from the colon polyp that was removed which probably is benign Pending Studies at Discharge: Yes Studies:: Pathology report from the colon polyp that was removed Stand-Alone Forms: My [facility], Smoking Cessation Medications and DC Order Prescriptions: New pantoprazole [Protonix] 40 mg tablet,delayed release (DR/EC) 40 mg PO BID Qty: 60 0RF sucralfate [Carafate] 1 gram tablet 1 g PO ACHS Qty: 60 0RF Continued sennosides [senna] 8.6 mg tablet 17.2 mg PO QPM atenolol 25 mg tablet 25 mg PO DAILY clopidogrel 75 mg tablet 75 mg PO DAILY aspirin 81 mg tablet,delayed release (DR/EC) 81 mg PO DAILY lisinopril 5 mg tablet 10 mg PO DAILY gabapentin 100 mg capsule 100 mg PO TID metoclopramide HCl 10 mg tablet 10 mg PO ACHS rosuvastatin 10 mg tablet 10 mg PO HS duloxetine 60 mg capsule,delayed release(DR/EC) 60 mg PO DAILY Discharge Orders: Discharge Order (Routine); Ordered 11/06/23 Ordered By: Eyad Baca Admission Data Admit Date/Time: 10/30/23 23:53 Attending Provider: Eyad Baca Admit Provider: Eli Rodirguez Primary Care Provider: Roselyn Lange Other Providers: Eli Rodriguez; Kaity Giron Jr; Rad Bettencourt Coding Level of Care Code 22636 INP/OBS DISCH >30 MIN Diagnoses Abdominal pain R10.9 Duodenitis K29.80 Hx SBO Z87.19 GIB (gastrointestinal bleeding) K92.2 ROME (acute kidney injury) N17.9 Acute blood loss anemia D62 CAD (coronary artery disease) I25.10 Obesity E66.9 B12 deficiency E53.8
== END 2023-11-06 14:23 | disposition home or self-care (01) | DRG 378 ==
LOC: ED 20:50 → EDINP 23:53 → SUATTDRO 23:53 → 2W 10-31 22:32 → 3W 11-03 17:48

== ENCOUNTER 2024-06-06 17:06 | Inpatient (IN) ==
[2024-06-06] MEDS: ACETAMINOPHEN 1,000 MG/100 ML VIAL IV STA (18:34)
[2024-06-06] MEDS: SODIUM CHLORIDE 0.9% 1,000 ML IV SCH (18:35)
[2024-06-06 18:45] LABS: Basophils # (auto) 0.04 K/uL (0.00-0.20); Basophils % (auto) 0.2 %; Hematocrit (blood only) 52.1 % (42.0-52.0); Immature Granulocytes # (auto) 0.09 K/uL (0.01-0.20); Immature Granulocytes % (auto) 0.4 %; Lymphocytes # (auto) 1.25 K/uL (1.20-3.40); Lymphocytes % (auto) 5.9 %; Mean Corpuscular Hemoglobin 22.7 pg (25.0-34.0); Mean Corpuscular Hgb Conc 30.7 g/dL (32.0-36.0); Mean Platelet Volume 10.3 fL (9.4-12.4); Monocytes # (auto) 1.26 K/uL (0.11-0.59); Neutrophils # (auto) 18.47 K/uL (1.40-6.50); Neutrophils % (auto) 87.5 %; Platelet Count 302 K/uL (130-400); RDW Coefficient of Variation 21.7 % (11.5-14.5); RDW Standard Deviation 53.5 fL (36.4-46.3); Red Blood Count 7.04 M/uL (4.70-6.10); White Blood Count 21.11 K/ul (4.8-10.8)
[2024-06-06 18:48] LABS: Albumin Globulin Ratio 1.4 (0.9-2); Albumin Level 4.9 gm/dl (3.4-5.0); BUN Creatinine Ratio 27.1 (10-20); Bilirubin,Total 0.6 mg/dl (0.2-1.0); Calcium 9.8 mg/dl (8.6-10.3); Globulin 3.5 gm/dl (2.5-4.0); Magnesium 2.3 mg/dl (1.7-2.4); Potassium 4.9 mmol/L (3.5-5.1); Total Protein 8.4 gm/dl (6.0-8.3)
[2024-06-06 18:54] LABS: Troponin I High Sensitivity 25.3 pg/ml (0-20)
[2024-06-06] MEDS: fentaNYL citrate PF 100 MCG/2 ML VIAL IV PRN (18:59)
[2024-06-06] MEDS: PANTOprazole 40 MG/10 ML SYR IV ONE (18:59)
[2024-06-06 19:01] LABS: Anisocytosis Present
[2024-06-06 19:11] LABS: INR 1.1 (0.9-1.1); Prothrombin Time 11.4 Seconds (9.0-12.0)
[2024-06-06] MEDS: PIPERACILLIN/TAZOBACTAM 4.5 GM/100 ML BAG IV ONE (19:13)
[2024-06-06] MEDS: OPTIRAY 320 100ml IV ONE (19:33)
[2024-06-06] MEDS: METOCLOPRAMIDE HCL INJ 5 MG/ML 2 ML VIAL IV ONE (19:56)
--- NOTE | 2024-06-06 20:27 | CT Scan Report ---
Exam(s): CT ABDOMEN + PELVIS With Contrast IV Amt: 94 ML EXAM: CT Abdomen and Pelvis With Intravenous Contrast CLINICAL HISTORY: Reason for exam: abd pain, n/v. TECHNIQUE: Axial computed tomography images of the abdomen and pelvis with intravenous contrast. CTDI is 27 mGy and DLP is 1576 mGy-cm. Automated exposure control was utilized for the study. A dose lowering technique was utilized adhering to the principles of ALARA. CONTRAST: Patient received 94 ML of IV contrast COMPARISON: No relevant prior studies available. FINDINGS: Lung bases: Discoid atelectasis seen in the lung bases. Heart: Moderate coronary vascular calcifications are seen. ABDOMEN: Liver: Unremarkable. No mass. Gallbladder and bile ducts: Unremarkable. No calcified stones. No ductal dilation. Pancreas: Unremarkable. No mass. No ductal dilation. Spleen: Unremarkable. No splenomegaly. Adrenals: Unremarkable. No mass. Kidneys and ureters: Unremarkable. No solid mass. No hydronephrosis. Stomach and bowel: Stomach and small bowel loops are dilated. The caliber of the small bowel loops measure up to 5.1 cm in diameter. Distal ileal loops are decompressed. No mucosal thickening. PELVIS: Appendix: No findings to suggest acute appendicitis. Bladder: Unremarkable. No mass. Reproductive: Unremarkable as visualized. ABDOMEN and PELVIS: Intraperitoneal space: Unremarkable. No free air. No significant fluid collection. Bones/joints: Severe degenerative disc disease changes seen in the lumbar spine causing moderate to severe spinal canal stenosis. Grade 1 L5/S1 spondylolisthesis. No acute fracture. No dislocation. Lymph nodes: Unremarkable. No enlarged lymph nodes. IMPRESSION: Distal high-grade small bowel obstruction Electronically signed by: Betito Burnham MD 06/06/24 20:26 PM
[2024-06-06 21:38] LABS: Appearance Urine Cloudy (Clear); Bacteria Urine Automated None Seen (None Seen); Bilirubin Urine 2+ (Negative); Blood Urine Negative (Negative); Cast Urine Automated >20 /lpf (0-2); Color Urine Dark Yellow; Glucose Urine UA Negative (Negative); Ketones Urine 1+ (Negative); Leukocyte Esterase Urine Trace (Negative); Mucus Urine Present (None Prsent); Nitrite Urine Negative (Negative); Protein Urine 2+ (Negative); RBC Urine Automated 0-2 /hpf (0-2); Specific Gravity Urine 1.035 (1.000-1.030); Urobilinogen Urine Negative (Negative); WBC Urine Automated 0-5 /hpf (0-5)
--- NOTE | 2024-06-06 21:38 | Surgery Consultation ---
Date of Consultation June 06, 2024 Assessment & Plan (1) SBO (small bowel obstruction): Patient with abdominal pain and associated N/V for the last few days presented to the ED this evening for ongoing symptoms. -Workup with elevated WBC of [address] A/P with high-grade SBO. Currently unsure etiology of elevated white count, however this could be reactive due to multiple episodes of vomiting. Patient has been placed on IV Zosyn by the ED provider. Recommend continuing for now. -On exam, the patient does not have any signs of acute abdomen that would warrant emergent surgical intervention. His abdomen is soft but does have some mild TTP over the LLQ. Patient does have a history of recurrent SBOs which have all been treated conservatively thus far. Recommend keeping strict NPO, IV fluids for hydration, and NGT to remain in place to suction for now. -Medical management per primary team and surgery will continue to follow Supervising Physician Co-Signing Physician Notes I personally saw and evaluated the patient with Ludwin Caal PA-C and agree with the assessment plan. 64-year-old male with a small bowel obstruction He is being admitted to medicine, no plans for any surgical intervention at this time Continue his NG tube/n.p.o., surgery will follow along History of Present Illness Reason for Consultation: SBO History of Present Illness Patient is a 64-year-old male who presented to the emergency department this evening secondary to abdominal pain, nausea and vomiting. Of note, the patient does have a history of a strangulated abdominal hernia when he was in his 20s, this did require exploratory laparotomy and states that they did remove some small bowel at that time. Patient denies any other previous abdominal surgeries. Patient states that he has had multiple episodes of small bowel obstructions that have resolved conservatively. Patient states over the last few days he has had abdominal pain, mostly located in his left lower quadrant, with associated nausea and vomiting. He states that his last bowel movement was yesterday morning and was somewhat loose and denies passing any gas since then. Due to his ongoing symptoms he presented to the ED for further evaluation. Upon workup the patient was found to have an elevated WBC of [address] A/P showing a high-grade SBO. At that time the surgical team was consulted for further evaluation. At my time of evaluation the patient is resting in bed, stable vitals, and NAD. Just prior to my arrival, an NGT was placed with gastric contents appreciated in canister and the patient states this has helped some with his symptoms. The patient's abdomen is soft and he does have mild tenderness over the LLQ but otherwise has no signs of acute abdomen at this time. Allergies Allergy/AdvReac Type Severity Reaction Status Date / Time adhesive Allergy Intermediate SKIN Verified 06/06/24 18:12 IRRITATION Home Medications Medication Instructions Recorded Confirmed Type aspirin 81 mg tablet,delayed 81 mg PO DAILY 10/30/23 06/06/24 History release atenolol 25 mg tablet 25 mg PO DAILY 10/30/23 06/06/24 History clopidogrel 75 mg tablet 75 mg PO DAILY 10/30/23 06/06/24 History duloxetine 60 mg capsule,delayed 30 mg PO DAILY 10/30/23 06/06/24 History release gabapentin 100 mg capsule 100 mg PO TID 10/30/23 06/06/24 History lisinopril 5 mg tablet 10 mg PO DAILY 10/30/23 06/06/24 History metoclopramide HCl 10 mg tablet 10 mg PO ACHS 10/30/23 06/06/24 History rosuvastatin 10 mg tablet 10 mg PO HS 10/30/23 10/30/23 History sennosides 8.6 mg tablet (senna) 17.2 mg PO QPM 10/30/23 10/30/23 History pantoprazole 40 mg tablet,delayed 40 mg PO BID #60 tabs 11/06/23 06/06/24 Rx release (Protonix) sucralfate 1 gram tablet (Carafate) 1 g PO ACHS #60 tabs 11/06/23 06/06/24 Rx ferrous sulfate 325 mg (65 mg 325 mg PO DAILY 06/06/24 06/06/24 History iron) tablet Patient History Medical History B12 deficiency Obesity SBO (small bowel obstruction) HLD (hyperlipidemia) HTN (hypertension) Surgical History History of total knee arthroplasty History of total hip arthroplasty S/P colectomy Family History Other Family history non-contributory Social History Smoking Status: Never smoker Tobacco Type: Cigarettes Cigarettes Per Day: 1; Second Hand Exposure: No; Do You Dip or Chew Tobacco: No; Hx Alcohol Use: No Hx Substance Use: No Preferred Language: Slovak Communication Ability: Effective Biology Lecturer Required: No Beliefs That Will Affect Care: None Current Living Situation: Spouse Current Living Situation Comment: Lives at home with Other Information That Helps Us Care for You: No Feels Safe at Home: Yes Safety Concerns: Feels Safe At This Time Assistive Devices: Crutches Review of Systems Review of Systems: All systems reviewed & are unremarkable except as noted in HPI & below Physical Exam Constitutional: WD/WN, vitals as above Respiratory: normal respiratory effort; no respiratory distress Cardiovascular: RRR, no murmur, no edema Gastrointestinal (Abdomen): Obese, soft, mild distention. Old midline incision appreciated. +Mild TTP over LLQ however no rebound, guarding or peritonitis. NGT in place to suction. Results & Data Vital Signs (Past 12 Hours) Vital Signs Temp Pulse Pulse Resp BP BP Pulse Ox 06/06/24 21:14 97 H 06/06/24 19:00 81 23 104/53 L 94 06/06/24 17:16 90 06/06/24 17:09 36.5 C 88 16 133/106 H 93 06/06/24 17:09 36.5 C 86 22 133/106 H 93 O2 Del Method 06/06/24 21:14 06/06/24 19:00 06/06/24 17:16 06/06/24 17:09 Room Air 06/06/24 17:09 Room Air Diagnostic Findings EXAM: CT Abdomen and Pelvis With Intravenous Contrast CLINICAL HISTORY: Reason for exam: abd pain, n/v. TECHNIQUE: Axial computed tomography images of the abdomen and pelvis with intravenous contrast. CTDI is 27 mGy and DLP is 1576 mGy-cm. Automated exposure control was utilized for the study. A dose lowering technique was utilized adhering to the principles of ALARA. CONTRAST: Patient received 94 ML of IV contrast COMPARISON: No relevant prior studies available. FINDINGS: Lung bases: Discoid atelectasis seen in the lung bases. Heart: Moderate coronary vascular calcifications are seen. ABDOMEN: Liver: Unremarkable. No mass. Gallbladder and bile ducts: Unremarkable. No calcified stones. No ductal dilation. Pancreas: Unremarkable. No mass. No ductal dilation. Spleen: Unremarkable. No splenomegaly. Adrenals: Unremarkable. No mass. Kidneys and ureters: Unremarkable. No solid mass. No hydronephrosis. Stomach and bowel: Stomach and small bowel loops are dilated. The caliber of the small bowel loops measure up to 5.1 cm in diameter. Distal ileal loops are decompressed. No mucosal thickening. PELVIS: Appendix: No findings to suggest acute appendicitis. Bladder: Unremarkable. No mass. Reproductive: Unremarkable as visualized. ABDOMEN and PELVIS: Intraperitoneal space: Unremarkable. No free air. No significant fluid collection. Bones/joints: Severe degenerative disc disease changes seen in the lumbar spine causing moderate to severe spinal canal stenosis. Grade 1 L5/S1 spondylolisthesis. No acute fracture. No dislocation. Lymph nodes: Unremarkable. No enlarged lymph nodes. IMPRESSION: Distal high-grade small bowel obstruction PG Care Time/CCT Total # of Minutes Spent Total Time Spent with Patient: Total time spent is greater than 50% in coordination of care (as documented) at patient's floor/unit and/or counseling patient: Coding Level of Care Code 20989 INT INP/OBS CARE MIN Diagnoses SBO (small bowel obstruction) K56.609
--- NOTE | 2024-06-06 22:14 | History & Physical Report ---
Date of Service June 06, 2024 Assessment & Plan (1) SBO (small bowel obstruction): Plan: Michael Reich is a 63yo M w PMH notable for CAD s/p 2 stents, HLD, HTN, hernia s/p partial bowel resection, and SBO who presents to the ED due to abd pain and vomiting. - Intractable vomiting + LLQ abd pain x3d Prior SBO, likely 2/2 adhesions from hernia repair No signs of acute abdomen - CTAP 06/06 showed distal high-grade small bowel obstruction - In ED afebrile but WBC 21, given 4.5g IV Zosyn - Admit to med/surg - Keep strict NPO, continue IVF, NGT in place, continue w intermittent suction - IV Zofran as needed for nausea - 4.5g IV Zosyn q8h (first dose 06/06 ~20:00) - hold metoclopramide, aspirin, plavix - Gen surg consulted, appreciate assist (2) HLD (hyperlipidemia): Plan: - continue rosuvastatin 10mg qHS (3) HTN (hypertension): Plan: Hold atenolol 25mg and lisinopril 10mg daily Hydralazine 10 mg IV every 4 hours as needed for systolic blood pressure above 160 (4) Duodenitis: Plan: Hold Protonix 40 mg BID and Carafate [address] on pantoprazole 40 mg IV twice daily History of Present Illness Chief Complaint: vomiting Primary Care Provider: Roselyn Nazario Reich is a 63yo M w PMH notable for CAD s/p 2 stents, HLD, HTN, hernia s/p partial bowel resection, and SBO who presents to the ED due to LLQ abd pain and vomiting. H/o hernia repair w 6 inches of bowel removed; has had SBO in the past, likely 2/2 adhesions from that surgery. Seen here 7m ago for diffuse abd pain; EGD & colonoscopy done, found multiple duodenal ulcers and a benign- appearing colon polyp. He reports his current symptoms started 3 days ago. He initially assumed he had the flu; says he should've realized sooner due to familiar sx and no other flu- like sx. He came in today because he couldn't stand it anymore. He has been unable to keep anything down, including his medications, and the vomiting and abd pain have resulted in fatigue, CP, SOB, cough. Has not had a BM in 2 days, did not note any bloody or black stool, is still passing flatus. He also notes faint bruising across abdomen, a/w blood thinner use and is not concerned about it. He has not noted blood in the emesis. He denies any other complaints at this time. Allergies Allergy/AdvReac Type Severity Reaction Status Date / Time adhesive Allergy Intermediate SKIN Verified 06/06/24 18:12 IRRITATION Home Medications Medication Instructions Recorded Confirmed Type aspirin 81 mg tablet,delayed 81 mg PO DAILY 10/30/23 06/06/24 History release atenolol 25 mg tablet 25 mg PO DAILY 10/30/23 06/06/24 History clopidogrel 75 mg tablet 75 mg PO DAILY 10/30/23 06/06/24 History duloxetine 60 mg capsule,delayed 30 mg PO DAILY 10/30/23 06/06/24 History release gabapentin 100 mg capsule 100 mg PO TID 10/30/23 06/06/24 History lisinopril 5 mg tablet 10 mg PO DAILY 10/30/23 06/06/24 History metoclopramide HCl 10 mg tablet 10 mg PO ACHS 10/30/23 06/06/24 History rosuvastatin 10 mg tablet 10 mg PO HS 10/30/23 10/30/23 History sennosides 8.6 mg tablet (senna) 17.2 mg PO QPM 10/30/23 10/30/23 History pantoprazole 40 mg tablet,delayed 40 mg PO BID #60 tabs 11/06/23 06/06/24 Rx release (Protonix) sucralfate 1 gram tablet (Carafate) 1 g PO ACHS #60 tabs 11/06/23 06/06/24 Rx ferrous sulfate 325 mg (65 mg 325 mg PO DAILY 06/06/24 06/06/24 History iron) tablet Past Med/Surg History Problem List (Updated 06/06/24 @ 22:27 by Kristan Lechuga DO) Nausea & vomiting (Acute) Duodenitis ROME (acute kidney injury) Acute blood loss anemia Abdominal pain (Acute) GIB (gastrointestinal bleeding) (Acute) SBO (small bowel obstruction) HLD (hyperlipidemia) HTN (hypertension) Medical History B12 deficiency Obesity SBO (small bowel obstruction) HLD (hyperlipidemia) HTN (hypertension) Surgical History History of total knee arthroplasty History of total hip arthroplasty S/P colectomy Family History Other Family history non-contributory Social History Smoking Status: Never smoker Tobacco Type: Cigarettes Cigarettes Per Day: 1; Second Hand Exposure: No; Do You Dip or Chew Tobacco: No; Hx Alcohol Use: No Hx Substance Use: No Preferred Language: Ukrainian Communication Ability: Effective Mannequin Refinisher Required: No Beliefs That Will Affect Care: None Current Living Situation: Spouse Current Living Situation Comment: Lives at home with Other Information That Helps Us Care for You: No Feels Safe at Home: Yes Safety Concerns: Feels Safe At This Time Assistive Devices: Crutches Review of Systems 2 Constitutional: + fatigue; no fever, no chills and no jennifer dy aches Eyes: no problem reported Respiratory: + cough; no hemoptysis Cardiovascular: + chest pain Gastrointestinal: + abdominal pain and + vomiting; no coff ee ground emesis and no hematemesis Genitourinary: no dysuria Musculoskeletal: + back pain; no joint pain, no swelling and no stiffness Neurologic: no paresthesia and no headache(s) Hematologic / Lymphatic: + easy bruising; no easy bleeding Physical Exam 2 Constitutional: WD/WN, vitals as above Eyes: PERRL, conjunctivae normal, anicteric sclerae Neck: normal visual inspection and trachea midline Respiratory: + labored breathing and + cough; no resp iratory distress and does not use accessory muscles Auscultation: lungs clear to auscultation bilaterally Cardiovascular: Rate/Rhythm: regular rhythm and + tachycardic Heart Sounds: normal S1 and normal S2; no murmur Gastrointestinal (Abdomen): Inspection/Auscultation: + abdomen distended, normal bowel sounds and + abdominal surgical scar Percussion/Palpation: a bdomen nontender and no guarding Musculoskeletal: Head/Neck/Chest: normocephalic and head atraumatic E xtremities: extremities normal to inspection Skin: no rashes, warm and dry + ecchymosis Neurologic: PERRL, EOMI, accommodation nl, no face palsy, no dysarthria Psychiatric: A+Ox3, euthymic affect Results & Data Results & Data Vital Signs (Past 12 Hours) Vital Signs Temp Pulse Pulse Resp BP BP Pulse Ox 06/06/24 21:14 97 H 06/06/24 19:00 81 23 104/53 L 94 06/06/24 17:16 90 06/06/24 17:09 36.5 C 88 16 133/106 H 93 06/06/24 17:09 36.5 C 86 22 133/106 H 93 O2 Del Method 06/06/24 21:14 06/06/24 19:00 06/06/24 17:16 06/06/24 17:09 Room Air 06/06/24 17:09 Room Air Laboratory Results 06/06/24 17:16 06/06/24 17:16 Diagnostic Findings Abdomen/Pelvis CT 06/06/24 18:11 Exam(s): CT ABDOMEN + PELVIS With Contrast IV Amt: 94 ML EXAM: CT Abdomen and Pelvis With Intravenous Contrast CLINICAL HISTORY: Reason for exam: abd pain, n/v. TECHNIQUE: Axial computed tomography images of the abdomen and pelvis with intravenous contrast. CTDI is 27 mGy and DLP is 1576 mGy-cm. Automated exposure control was utilized for the study. A dose lowering technique was utilized adhering to the principles of ALARA. CONTRAST: Patient received 94 ML of IV contrast COMPARISON: No relevant prior studies available. FINDINGS: Lung bases: Discoid atelectasis seen in the lung bases. Heart: Moderate coronary vascular calcifications are seen. ABDOMEN: Liver: Unremarkable. No mass. Gallbladder and bile ducts: Unremarkable. No calcified stones. No ductal dilation. Pancreas: Unremarkable. No mass. No ductal dilation. Spleen: Unremarkable. No splenomegaly. Adrenals: Unremarkable. No mass. Kidneys and ureters: Unremarkable. No solid mass. No hydronephrosis. Stomach and bowel: Stomach and small bowel loops are dilated. The caliber of the small bowel loops measure up to 5.1 cm in diameter. Distal ileal loops are decompressed. No mucosal thickening. PELVIS: Appendix: No findings to suggest acute appendicitis. Bladder: Unremarkable. No mass. Reproductive: Unremarkable as visualized. ABDOMEN and PELVIS: Intraperitoneal space: Unremarkable. No free air. No significant fluid collection. Bones/joints: Severe degenerative disc disease changes seen in the lumbar spine causing moderate to severe spinal canal stenosis. Grade 1 L5/S1 spondylolisthesis. No acute fracture. No dislocation. Lymph nodes: Unremarkable. No enlarged lymph nodes. IMPRESSION: Distal high-grade small bowel obstruction Electronically signed by: Betito Burnham MD 06/06/24 20:26 PM Supervising Physician Co-Signing Physician Notes Attending addendum: I have physically seen this patient, have supervised the medical residents activities, and agree with the H&P unless as otherwise noted. Assessment and Plan: Distal high-grade small bowel obstruction- As noted on CT scan NPO History of previous abdominal surgery Neutrophilic leukocytosis Zosyn 4.5 g IV every 8 hours Zofran 4 mg IV every 6 hours as needed Pantoprazole 40 mg IV daily Continue NG tube to low intermittent suction Serial CBC with differential, chemistry profile and magnesium levels NSS at 125 mL/h Acetaminophen 1 g IV every 8 hours as needed for mild pain or fever Hypertension- Hold atenolol and lisinopril Hydralazine 10 mg IV every 4 hours as needed for systolic blood pressure above 160 Duodenal ulcer/history of GI bleed- Continue pantoprazole at 40 mg IV twice daily Resident Activity Tracking Resident Involvement: Resident Care Provided Care Provided: Adult Hospital Medicine
--- NOTE | 2024-06-06 22:27 | Emergency Department Note ---
Impression & Plan Abdominal pain, Nausea & vomiting, Bowel obstruction ED Provider Note ED Provider Note NAME: VARSHA RANDALL AGE:64 SEX: Male : 1960 ARRIVES VIA: Private vehicle INFORMANT: Patient ED PROVIDER(s): Kristan Lechuga DO CHIEF COMPLAINT: Abdominal pain, nausea and vomiting HPI: This is a 64-year-old male presents to the emergency department due to concern for 3 to 4 days of left lower quadrant abdominal pain with nausea and vomiting. He states he does feel distended, and his last bowel movement was 2 days ago. He states he is still passing small amounts of gas. He denies fevers or chills. He states symptoms feel similar to when he had a bowel obstruction previously. He denies any recent change in diet or new medications. No recent black or bloody stools. Patient has had prior abdominal surgery as he states he had removal of part of his intestines following an incarcerated umbilical hernia. No other recent illness. No change in urine. PAST MEDICAL HISTORY:See Below PAST SURGICAL HISTORY:See Below FAMILY HISTORY:See Below SOCIAL HISTORY:See Below HOME MEDICATIONS:See Below ALLERGIES:See Below VITALS:See Below PHYSICAL EXAMINATION: GENERAL: alert, uncomfortable appearing, well nourished, mild distress, laying left lateral recumbent EYE EXAM: normal conjunctiva, PERRL and EOM's grossly intact OROPHARYNX: no exudate, no erythema, lips, buccal mucosa, and tongue normal and mucous membranes are dry NECK: supple, no nuchal rigidity, no adenopathy, non-tender LUNGS: Clear to auscultation. Normal chest wall mechanics, no w/r/r HEART: no murmurs, S1 normal and S2 normal ABDOMEN: abdomen soft, mild discomfort with palpation along the lower abdomen left greater than right, normo-active bowel sounds, no masses, no rebound or guarding. Dull to percussion. Well-healed vertical incision noted to the left of the umbilicus BACK: Back is symmetrical on inspection and there is no deformity SKIN: no rashes, petechiae, orbruising UPPER EXTREMITIES: upper extremities are grossly normal. FROM, nml pulses b/l. LOWER EXTREMITIES: No pitting edema. FROM, nml pulses b/l. NEURO EXAM: Normal sensorium, cranial nerves II-XII grossly intact, normal speech, no facial droop,nogross weakness of arms, no gross weakness of legs. Gross sensation intact. No ataxia. Vital Signs: reviewed and remarkable Differential Diagnosis: SBO, diverticulitis, colitis, mesenteric ischemia, UTI, ureteral stone, pyelo, constipation, dehydration, medication adr, as well as others were considered MEDICAL DECISION MAKING: THis is a 64 yo male who presents c/o several days of LLQ abd pain, nausea/vomiting. He was afebrile and VS stable. Labs drawn and sent, IV established, EKG performed and interpreted at bedside, and patient placed on telemetry. He was started on IVF, given IV tylenol, IV reglan, IV protonix, and IV fentanyl. He was sent for CT a/p. Labs revealed significant leukocytosis so empiric IV zosyn added. CT read from outside rad was high grade bowel obstruction. Message sent for gen surg PA. She did come and see him at bedside. NG tube placed by nursing staff. Case discussed with the hospitalist team for additional evaluation and mgmt. Consultation(s): 2100: [facility] text sent to on-call general surgery PA, Ludwin Caal. She did come and evaluate the patient at bedside. ER Treatment Provided: See below Diagnostics Interpreted By Me: -ECG: Normal sinus at 86, normal axis, normal intervals, inverted T waves noted in 1, aVL, and ST depression noted in V6 -Cardiac Monitoring: An order was placed for continuous cardiac monitoring. The monitor shows a rate of 92 with normal sinus rhythm. -Laboratory studies: As stated above and show below. -Imaging studies: CT a/p - no perf, dilated loops of bowel Triage Nursing Note Reviewed Prior/Outside Records Reviewed Past Med/Surg History Problem List (Updated 06/07/24 @ 18:37 by Kristan Lechuga DO) Bowel obstruction (Acute) Nausea & vomiting (Acute) Duodenitis ROME (acute kidney injury) Acute blood loss anemia Abdominal pain (Acute) GIB (gastrointestinal bleeding) (Acute) SBO (small bowel obstruction) HLD (hyperlipidemia) HTN (hypertension) Medical History B12 deficiency Obesity SBO (small bowel obstruction) HLD (hyperlipidemia) HTN (hypertension) Surgical History History of total knee arthroplasty History of total hip arthroplasty S/P colectomy Family History Other Family history non-contributory Social History Smoking Status: Never smoker Tobacco Type: Cigarettes Cigarettes Per Day: 1; Second Hand Exposure: No; Do You Dip or Chew Tobacco: No; Hx Alcohol Use: No Hx Substance Use: No Preferred Language: Vietnamese Communication Ability: Effective Workers' Compensation Commissioner Required: No Beliefs That Will Affect Care: None Current Living Situation: Spouse Current Living Situation Comment: Lives at home with Other Information That Helps Us Care for You: No Feels Safe at Home: Yes Safety Concerns: Feels Safe At This Time Assistive Devices: Crutches Allergies Allergies Allergy/AdvReac Type Severity Reaction Status Date / Time adhesive Allergy Intermediate SKIN Verified 06/06/24 18:12 IRRITATION Home Meds Home Medications Medication Instructions Recorded Confirmed aspirin 81 mg tablet,delayed 81 mg PO DAILY 10/30/23 06/06/24 release atenolol 25 mg tablet 25 mg PO DAILY 10/30/23 06/06/24 clopidogrel 75 mg tablet 75 mg PO DAILY 10/30/23 06/06/24 duloxetine 60 mg capsule,delayed 30 mg PO DAILY 10/30/23 06/06/24 release gabapentin 100 mg capsule 100 mg PO TID 10/30/23 06/06/24 lisinopril 5 mg tablet 10 mg PO DAILY 10/30/23 06/06/24 metoclopramide HCl 10 mg tablet 10 mg PO ACHS 10/30/23 06/06/24 rosuvastatin 10 mg tablet 10 mg PO HS 10/30/23 10/30/23 sennosides 8.6 mg tablet (senna) 17.2 mg PO QPM 10/30/23 10/30/23 ferrous sulfate 325 mg (65 mg 325 mg PO DAILY 06/06/24 06/06/24 iron) tablet Previous Rx's Medication Instructions Recorded pantoprazole 40 mg tablet,delayed 40 mg PO BID #60 tabs 11/06/23 release (Protonix) sucralfate 1 gram tablet (Carafate) 1 g PO ACHS #60 tabs 11/06/23 Results & Data (ED) Vital Signs Vital Signs - 24 hr 06/06/24 19:00 06/06/24 21:14 06/06/24 22:27 Pulse Rate 97 H Pulse Rate [Apical] 81 95 H Respiratory Rate 23 24 Respiratory Effort / Characteristics Spontaneous Non-Labored Spontaneous Respiratory Depth Normal Normal Blood Pressure [Right Arm] 104/53 L 88/68 L Blood Pressure Mean [Right Arm] 70 74 Pulse Oximetry 94 94 Laboratory Data 06/06/24 17:16 06/06/24 17:16 Lab Results 06/06/24 06/06/24 Range/Units 17:16 21:15 WBC 21.11 H (4.8-10.8) K/ul RBC 7.04 H (4.70-6.10) M/uL Hgb 16.0 (14.0-18.0) g/dl Hct 52.1 H (42.0-52.0) % MCV 74.0 L (80.0-100.0) fL MCH 22.7 L (25.0-34.0) pg MCHC 30.7 L (32.0-36.0) g/dL RDW Std Deviation 53.5 H (36.4-46.3) fL RDW Coeff of Teresa 21.7 H (11.5-14.5) % Plt Count 302 (130-400) K/uL MPV 10.3 (9.4-12.4) fL Immature Gran % (Auto) 0.4 % Neut % (Auto) 87.5 % Lymph % (Auto) 5.9 % Gaston % (Auto) 6.0 % Eos % (Auto) 0.0 % Baso % (Auto) 0.2 % Neut # (Auto) 18.47 H (1.40-6.50) K/uL Lymph # (Auto) 1.25 (1.20-3.40) K/uL Gaston # (Auto) 1.26 H (0.11-0.59) K/uL Eos # (Auto) 0.00 (0.00-0.50) K/uL Baso # (Auto) 0.04 (0.00-0.20) K/uL Immature Gran # (Auto) 0.09 (0.01-0.20) K/uL Anisocytosis Present PT 11.4 (9.0-12.0) Seconds INR 1.1 (0.9-1.1) Sodium 137 (136-145) mmol/L Potassium 4.9 (3.5-5.1) mmol/L Chloride 102 (98-107) mmol/L Carbon Dioxide 19 L (21-32) mmol/L Anion Gap 16 H (3-11) BUN 46 H (6-23) mg/dl Creatinine 1.70 H (0.6-1.4) mg/dl Est Cr Clr Drug Dosing 59.0 ml/min eGFR 44.74 BUN/Creatinine Ratio 27.1 H (10-20) Glucose 121 H (70-99(Fasting)) mg/dl Calcium 9.8 (8.6-10.3) mg/dl Magnesium 2.3 (1.7-2.4) mg/dl Total Bilirubin 0.6 (0.2-1.0) mg/dl AST 24 (13-39) U/L ALT 17 (7-52) U/L Alkaline Phosphatase 122 H (34-104) U/L Troponin I High Sens 25.3 H (0-20) pg/ml Total Protein 8.4 H (6.0-8.3) gm/dl Albumin 4.9 (3.4-5.0) gm/dl Globulin 3.5 (2.5-4.0) gm/dl Albumin/Globulin Ratio 1.4 (0.9-2) Lipase 36 (11-82) U/L Procalcitonin 0.10 (0-0.5) ng/ml Urine Color Dark Yellow Urine Appearance Cloudy A (Clear) Urine pH 5.0 (4.5-7.5) Ur Specific [place] 1.035 H (1.000-1.030) Urine Protein 2+ H (Negative) Urine Glucose (UA) Negative (Negative) Urine Ketones 1+ H (Negative) Urine Blood Negative (Negative) Urine Nitrite Negative (Negative) Urine Bilirubin 2+ H (Negative) Urine Urobilinogen Negative (Negative) Ur Leukocyte Esterase Trace H (Negative) Urine WBC (Auto) 0-5 (0-5) /hpf Urine RBC (Auto) 0-2 (0-2) /hpf U Hyaline Cast (Auto) >20 H (0-2) /lpf U Epithel Cells (Auto) 3-5 H (0-2) /hpf Urine Bacteria (Auto) None Seen (None Seen) Urine Mucus Present A (None Prsent) Administered Medications Sodium Chloride (Nss) 1,000 mls @ 125 mls/hr IV .Q8H AMBROSE Stop: 07/06/24 18:14 Last Admin: 06/07/24 17:19 Dose: Not Given Documented By: Admin: 06/07/24 11:37 Dose: 125 mls/hr Documented By: Infusion: 06/07/24 10:12 Dose: Infused Documented By: Admin: 06/07/24 02:12 Dose: 125 mls/hr Documented By: Infusion: 06/07/24 02:12 Dose: Infused Documented By: Admin: 06/06/24 18:35 Dose: 125 mls/hr Documented By: DESMOND Piperacillin Sod/Tazobactam Sod (Zosyn) 4.5 gm in 100 mls @ 25 mls/hr IV Q8H AMBROSE; Protocol Stop: 06/09/24 00:59 Last Admin: 06/07/24 16:46 Dose: 25 mls/hr Documented By: Infusion: 06/07/24 13:23 Dose: Infused Documented By: Admin: 06/07/24 09:17 Dose: 25 mls/hr Documented By: Infusion: 06/07/24 05:20 Dose: Infused Documented By: Admin: 06/07/24 01:27 Dose: 25 mls/hr Documented By: HUDSON Acetaminophen (Ofirmev) 1,000 mg in 100 mls @ 400 mls/hr IV Q8H PRN PRN Reason: Pain Stop: 06/10/24 00:49 Last Infusion: 06/07/24 13:23 Dose: Infused Documented By: Admin: 06/07/24 13:08 Dose: 400 mls/hr Documented By: Infusion: 06/07/24 05:46 Dose: Infused Documented By: Admin: 06/07/24 05:11 Dose: 400 mls/hr Documented By: HUDSON Pantoprazole Sodium (Protonix) 40 mg in 10 mls @ 5 mls/min IV BID AMBROSE Stop: 07/07/24 08:59 Last Admin: 06/07/24 09:17 Dose: 5 mls/min Documented By: HAYDEN Phenol (Chloraseptic (Phenol) 1.4% Soln 180 Ml Btl) 2 sprays MT TID PRN PRN Reason: Pain Stop: 07/07/24 00:48 Last Admin: 06/07/24 01:27 Dose: 2 sprays Documented By: KSC Discontinued Medications Fentanyl Citrate (Fentanyl Citrate Pf 100 Mcg/2 Ml Vial) 50 mcg IV Q15M PRN PRN Reason: Pain Stop: 06/20/24 18:10 Last Admin: 06/06/24 23:19 Dose: 50 mcg Documented By: Admin: 06/06/24 18:59 Dose: 50 mcg Documented By: DESMOND Pantoprazole Sodium (Protonix) 40 mg in 10 mls @ 5 mls/min IV NOW ONE Stop: 06/06/24 18:12 Last Admin: 06/06/24 18:59 Dose: 5 mls/min Documented By: DESMOND Acetaminophen (Ofirmev) 1,000 mg in 100 mls @ 400 mls/hr IV NOW STA Stop: 06/06/24 18:25 Last Infusion: 06/06/24 18:51 Dose: Infused Documented By: Admin: 06/06/24 18:34 Dose: 400 mls/hr Documented By: DESMOND Piperacillin Sod/Tazobactam Sod (Zosyn) 4.5 gm in 100 mls @ 200 mls/hr IV NOW ONE; Protocol Stop: 06/06/24 19:15 Last Infusion: 06/06/24 20:08 Dose: Infused Documented By: Admin: 06/06/24 19:13 Dose: 200 mls/hr Documented By: DESMOND Ioversol (Optiray 320 100ml) 94 ml IV ONCE ONE Stop: 06/06/24 19:40 Last Admin: 06/06/24 19:33 Dose: 94 ml Documented By: MARGOT Metoclopramide HCl (Metoclopramide Hcl Inj 5 Mg/Ml 2 Ml Vial) 5 mg IV ONE ONE Stop: 06/06/24 19:54 Last Admin: 06/06/24 19:56 Dose: 5 mg Documented By: DESMOND Ondansetron HCl (Ondansetron Inj 2 Mg/Ml 2 Ml Vial) 4 mg IV NOW STA Stop: 06/06/24 23:34 Last Admin: 06/06/24 23:45 Dose: 4 mg Documented By: NRB Imaging Data Radiologist's Impression: KUB X-Ray 06/06/24 21:12 XR KUB/Abdomen 1 view CLINICAL HISTORY: NG tube placement TECHNIQUE: 1 view of the abdomen was obtained. Comparison: Comparison is made to CT abdomen and pelvis 06/06/2024 FINDINGS: Enteric tube terminates in the stomach. The osseous structures are grossly unremarkable. Partial visualization of dilated loops of small bowel. A moderate amount of stool is noted within the large bowel. IMPRESSION: Satisfactory position of enteric tube. Partial visualization of small bowel obstruction. ACT 112: Negative or not required by law. Electronically signed by: Dieter Poon M.D. 06/07/2024 7:55 AM Discharge Plan Visit Data Chief Complaint: Flu Like Symptoms Stated Complaint: Flu Like Symptoms ED Provider: Kristan Lechuga Discharge Problem: Abdominal pain, Nausea & vomiting, Bowel obstruction Patient Disposition: Admitted As Inpatient Discharge Instructions Interventions: ED Discharge Assessment Last Done: 06/06/24 23:57
[2024-06-06] MEDS: ONDANSETRON INJ 2 MG/ML 2 ML VIAL IV STA (23:45)
[2024-06-07] MEDS ORDERED: ACETAMINOPHEN 325 MG TAB PO PRN (00:30)
[2024-06-07] MEDS ORDERED: POLYETHYLENE (MIRALAX) 17 GM PACK PO PRN (00:30)
[2024-06-07] MEDS ORDERED: ONDANSETRON INJ 2 MG/ML 2 ML VIAL IV PRN (00:30)
[2024-06-07] MEDS: PIPERACILLIN/TAZOBACTAM 4.5 GM/100 ML BAG IV SCH (01:27)
[2024-06-07] MEDS: CHLORASEPTIC (PHENOL) 1.4% SOLN 180 ML BTL MT PRN (01:27)
--- NOTE | 2024-06-07 02:43 | Billing Data ---
Date of Service June 07, 2024 Coding Level of Care Code 27405 INT INP/OBS CARE
[2024-06-07] MEDS: ACETAMINOPHEN 1,000 MG/100 ML VIAL IV PRN (05:11)
--- NOTE | 2024-06-07 07:15 | Hospitalist Progress Note ---
Date of Service June 07, 2024 Assessment & Plan (1) SBO (small bowel obstruction): (2) HLD (hyperlipidemia): (3) HTN (hypertension): (4) Duodenitis: Plan Mr Reich is a 63yo amle with PMH of CAD s/p 2 stents, HLD, HTN, hernia s/p partial bowel resection, and SBO who presents to the ED due to abd pain and vomiting. SBO - Intractable vomiting + LLQ abd pain x3d hx of prior SBO, likely secondary to adhesions from hernia repair. CTAP 06/06 showed distal high-grade small bowel obstruction. In ED afebrile, WBC 21. He was given 4.5g IV Zosyn, NGT placed, put on strict NPO and IVF, NGT in placed. This morning, pt had large BM and is noting resolution of reported complaints. - Gen surg consulted and recommends Continued NGT, NPO and IVF If bowel function continues, will consider clear liquids on 06/08 - Continue NG with suction - Continue NPO - Continue IV NS 125ml/hr q8h - 4.5g IV Zosyn q8h - Continue IV Zofran as needed for nausea - hold metoclopramide, aspirin, plavix - AM labs to assess electrolytes and WBC HLD - Hold rosuvastatin 10mg qHS HTN - Hydralazine 10mg IV PRN for SBP> 160 - Hold home meds of atenolol 25mg and lisinopril 10mg daily - Monitor vitals Duodenal ulcer/hx of GI bleed - continue IV Protonix 40 mg BID Dispo: Med surg Diet: NPO DVT prophylaxis: SCDs Admission and Anticipated Discharge Date Admission Date: June 06, 2024 Supervising Physician Co-Signing Physician Notes Attending Physician Supervision Note: I independently interviewed and examined the patient and verified the albrecht history and physical, reviewed labs and image studies and agree with findings and care plan noted above. Subjective Pt is a 64 yo male who was admitted for abdominal pain and vomiting with hx of SBO. This morning, pt reports he had a large bowel movement and is feeling much better. He states is abdominal pain has resolved and he is no longer nauseous. Pt denies fever, chills, chest pain, SOB, numbness/tingling. He denies hx of melena or hematochezia. Review of Systems Review of Systems: As per HPI Physical Exam Constitutional: WD/WN, vitals as above Eyes: PERRL, conjunctivae normal, anicteric sclerae Neck: normal visual inspection and trachea midline Respiratory: normal respiratory effort, lungs clear to auscultation Cardiovascular: Rate/Rhythm: regular rhythm Heart Sounds: normal S1 and normal S2; no murmur Gastrointestinal (Abdomen): Inspection/Auscultation: normal bowel sounds and + abdominal surgical scar Percussion/Palpation: abdomen nontender and no guarding Musculoskeletal: Extremities: extremities normal to inspection Skin: no rashes, warm and dry Neurologic: PERRL, EOMI, accommodation nl, no face palsy, no dysarthria Psychiatric: A+Ox3, euthymic affect Results & Data Results & Data Vital Signs (Past 12 Hours) Vital Signs Temp Pulse Pulse Resp BP BP Pulse Ox 06/07/24 02:58 36.6 C 101 H 18 112/76 96 06/07/24 00:50 06/07/24 00:30 36.5 C 90 16 152/103 H 93 06/06/24 23:57 86 22 131/89 95 06/06/24 22:27 95 H 24 88/68 L 94 06/06/24 21:14 97 H O2 Del Method 06/07/24 02:58 Room Air 06/07/24 00:50 Room Air 06/07/24 00:30 Room Air 06/06/24 23:57 Room Air 06/06/24 22:27 06/06/24 21:14 Resident Activity Tracking Resident Involvement: Resident Care Provided Care Provided: Adult Hospital Medicine
[2024-06-07] MEDS ORDERED: SUCRALFATE 1 GM TAB PO SCH (07:30)
--- NOTE | 2024-06-07 07:56 | XRay Report ---
XR KUB/Abdomen 1 view CLINICAL HISTORY: NG tube placement TECHNIQUE: 1 view of the abdomen was obtained. Comparison: Comparison is made to CT abdomen and pelvis 06/06/2024 FINDINGS: Enteric tube terminates in the stomach. The osseous structures are grossly unremarkable. Partial visu alization of dilated loops of small bowel. A moderate amount of stool is noted within the large bowel . IMPRESSION: Satisfactory position of enteric tube. Partial visualization of small bowel obstruction. ACT 112: Negative or not required by law. Electronically signed by: Dieter Poon M.D. 06/07/2024 7:55 AM
[2024-06-07] MEDS ORDERED: PANTOprazole 40 MG TAB PO SCH (09:00)
[2024-06-07] MEDS ORDERED: lisinopril 10 MG TAB PO SCH (09:00)
[2024-06-07] MEDS ORDERED: ATENOLOL 25 MG TABLET PO SCH (09:00)
[2024-06-07] MEDS ORDERED: GABAPENTIN 100 MG CAP PO SCH (09:00)
[2024-06-07] MEDS ORDERED: DULoxetine HCL 30 MG CAP PO SCH (09:00)
--- NOTE | 2024-06-07 09:13 | Surgery Progress Note ---
Date of Service June 07, 2024 Assessment & Plan (1) SBO (small bowel obstruction): Plan: His CT images and results were personally viewed and interpreted by myself He does have dilated small bowel consistent with small bowel obstruction, however he did have a bowel movement this morning and feels much better We continue his NG tube for today as he just got placed late last night If he continues to have bowel function we can consider removing the NG tube t omorrow and initiating clear liquids Surgery will follow Admission and Anticipated Discharge Date Admission Date: June 06, 2024 Subjective Patient seen and examined. States his abdominal pain is much improved and almost resolved. He states he had a bowel movement this morning. Afebrile. Review of Systems Constitutional: no fever and no chills Respiratory: no cough and no dyspnea Cardiovascular: no chest pain and no dyspnea on exertion Gastrointestinal: no abdominal pain, no nausea, no vomiting, no constipation and no diarrhea/loose stools Genitourinary: no dysuria or no nocturia Musculoskeletal: no back pain and no neck pain Integumentary: no acne, no dry skin and no skin swelling Psychiatric: no behavioral changes and no depression Hematologic / Lymphatic: no easy bleeding and no easy bruising Physical Exam Constitutional: WD/WN, vitals as above Eyes: PERRL, conjunctivae normal, anicteric sclerae Respiratory: normal respiratory effort, lungs clear to auscultation Cardiovascular: RRR, no murmur, no edema Gastrointestinal (Abdomen): Soft, obese, nontender, nondistended Musculoskeletal: no cyanosis or clubbing, extremities motor strength 5/5 Skin: no rashes, warm and dry Psychiatric: A+Ox3, euthymic affect Results & Data Vital Signs (Past 12 Hours) Vital Signs Temp Pulse Pulse Resp BP BP Pulse Ox 06/07/24 08:13 36.5 C 82 16 107/72 95 06/07/24 02:58 36.6 C 101 H 18 112/76 96 06/07/24 00:50 06/07/24 00:30 36.5 C 90 16 152/103 H 93 06/06/24 23:57 86 22 131/89 95 06/06/24 22:27 95 H 24 88/68 L 94 06/06/24 21:14 97 H O2 Del Method 06/07/24 08:13 Room Air 10/19/24 02:58 Room Air 06/07/24 00:50 Room Air 06/07/24 00:30 Room Air 06/06/24 23:57 Room Air 06/06/24 22:27 06/06/24 21:14 PG Care Time/CCT Total # of Minutes Spent Total Time Spent with Patient: Total time spent is greater than 50% in coordination of care (as documented) at patient's floor/unit and/or counseling patient: Coding Level of Care Code 69792 SUB INP/OBS CARE 09/13MIN Diagnoses SBO (small bowel obstruction) K56.609
[2024-06-07] MEDS: PANTOprazole 40 MG/10 ML SYR IV SCH (09:17)
[2024-06-07] MEDS ORDERED: ROSUVASTATIN CALCIUM 10 MG TAB PO SCH (21:00)
--- NOTE | 2024-06-08 06:48 | Surgery Progress Note ---
Date of Service June 08, 2024 Assessment & Plan (1) Bowel obstruction: Plan: Patient feeling well this morning. NGT has remained in place to suction since admission. Patient has had return of bowel function and has had multiple BMs and passing gas. Will plan to advance to clear liquids and D/C NGT this AM Continue medical management per primary team, surgery will continue to follow Admission and Anticipated Discharge Date Admission Date: June 06, 2024 Supervising Physician Co-Signing Physician Notes If tolerates clears for breakfast and lunch, can advance to full's for dinner If he continues to tolerate his diet, he can likely be discharged home tomorrow Subjective Patient feeling well this morning NGT has remained in place to suction, states that he has had multiple BMs and is passing gas. Would like to try clears today. States he does have some abdominal discomfort at times however is intermittent. Physical Exam Constitutional: WD/WN, vitals as above Respiratory: normal respiratory effort, lungs clear to auscultation Cardiovascular: RRR, no murmur, no edema Gastrointestinal (Abdomen): Obese, soft, nondistended, and nontender to palpation. No rebound, guarding or peritonitis. NGT in place to suction at this time Psychiatric: A+Ox3, euthymic affect Results & Data Vital Signs (Past 12 Hours) Vital Signs Temp Pulse Resp BP Pulse Ox O2 Del Method 06/07/24 21:13 36.8 C 78 18 136/87 94 Room Air PG Care Time/CCT Total # of Minutes Spent Total Time Spent with Patient: Total time spent is greater than 50% in coordination of care (as documented) at patient's floor/unit and/or counseling patient: Coding Level of Care Code 55150 SUB INP/OBS CARE 09/13MIN Diagnoses Bowel obstruction K56.609 Intestinal obstruction type: obstruction due to adhesions (1) Bowel obstruction Intestinal obstruction type: obstruction due to adhesions
--- NOTE | 2024-06-08 07:25 | Hospitalist Progress Note ---
Date of Service June 08, 2024 Assessment & Plan (1) SBO (small bowel obstruction): (2) HLD (hyperlipidemia): (3) HTN (hypertension): (4) Duodenitis: Plan Mr Reich is a 63yo amle with PMH of CAD s/p 2 stents, HLD, HTN, hernia s/p partial bowel resection, and SBO who presents to the ED due to abd pain and vomiting. SBO - Intractable vomiting + LLQ abd pain x3d hx of prior SBO, likely secondary to adhesions from hernia repair. CTAP 06/06 showed distal high-grade small bowel obstruction. In ED afebrile, WBC 21. He was given 4.5g IV Zosyn, NGT placed, put on strict NPO and IVF. This morning, pt reports resolution of nausea, mild dull abdominal pain and passing gas overnight. WBC has returned to normal at 8.56. Hbg reduced to 13.3, which may be caused by dilution secondary to IV fluids. Pt is asymptomatic for anemia at this time. - Gen surg consulted and recommends Remove NGT Starting clear liquids at breakfast - NGT removed - Clear liquids progressed to full liquids at lunch - Discontinued IV NS 125ml/hr q8h - Discontinued IV Zosyn at 1350 - Continue IV Zofran as needed for nausea - hold metoclopramide, aspirin, plavix HLD - Hold rosuvastatin 10mg qHS HTN BPs elevated today at 180s/110 - Hydralazine 10mg IV given, BP reduced to 170s/90s, - Restarted home meds of atenolol 25mg and lisinopril 10mg PO daily - Monitor vitals Duodenal ulcer/hx of GI bleed - continue IV Protonix 40 mg BID Dispo: Med surg Diet: full liquids DVT prophylaxis: SCDs Admission and Anticipated Discharge Date Admission Date: June 06, 2024 Supervising Physician Co-Signing Physician Notes Attending Physician Supervision Note: I independently interviewed and examined the patient and verified the albrecht history and physical, reviewed labs and image studies and agree with findings and care plan noted above. Subjective Pt reports he tried a popsicle this morning and tolerated well. He is ready to try clear liquid breakfast. Denies nausea, vomiting. He has had small BMs since large BM yesterday morning, passing gas overnight. Denies CP, SOB, joint pain, extremity swelling, numbness/tingling, weakness, or dizziness. Review of Systems Review of Systems: As per HPI Physical Exam Constitutional: WD/WN, vitals as above Eyes: PERRL, conjunctivae normal, anicteric sclerae Respiratory: normal respiratory effort, lungs clear to auscultation Cardiovascular: Rate/Rhythm: regular rhythm and + tachycardic Heart Sounds: normal S1 and normal S2; no murmur Gastrointestinal (Abdomen): Inspection/Auscultation: + abdominal surgical scar and + hypoactive bowel sounds Percussion/Palpation: abdomen nontender and no guarding Musculoskeletal: Head/Neck/Chest: normocephalic and head atraumatic Extremities: extremities normal to inspection Skin: no rashes, warm and dry Neurologic: PERRL, EOMI, accommodation nl, no face palsy, no dysarthria Psychiatric: A+Ox3, euthymic affect Results & Data Results & Data Vital Signs (Past 12 Hours) Vital Signs Temp Pulse Resp BP Pulse Ox O2 Del Method 06/07/24 21:13 36.8 C 78 18 136/87 94 Room Air Resident Activity Tracking Resident Involvement: Resident Care Provided Care Provided: Adult Hospital Medicine
[2024-06-08 08:27] LABS: Hematocrit (blood only) 46.9 % (42.0-52.0); Hemoglobin 13.3 g/dl (14.0-18.0); Mean Corpuscular Hemoglobin 22.7 pg (25.0-34.0); Mean Corpuscular Hgb Conc 28.4 g/dL (32.0-36.0); Mean Platelet Volume 10.1 fL (9.4-12.4); Platelet Count 177 K/uL (130-400); RDW Coefficient of Variation 21.1 % (11.5-14.5); RDW Standard Deviation 59.4 fL (36.4-46.3); Red Blood Count 5.86 M/uL (4.70-6.10); White Blood Count 8.56 K/ul (4.8-10.8)
[2024-06-08 08:41] LABS: Albumin Globulin Ratio 1.6 (0.9-2); Albumin Level 3.6 gm/dl (3.4-5.0); BUN Creatinine Ratio 26.7 (10-20); Bilirubin,Total 0.5 mg/dl (0.2-1.0); Calcium 7.6 mg/dl (8.6-10.3); Creatinine Clr Calc Pharmacy 73.6 ml/min; Globulin 2.3 gm/dl (2.5-4.0); Potassium 3.7 mmol/L (3.5-5.1); Total Protein 5.9 gm/dl (6.0-8.3)
[2024-06-08] MEDS: hydrALAZINE HCL 20 MG/ML VIAL IV PRN (08:48)
[2024-06-08] MEDS: lisinopril 10 MG TAB PO SCH (11:46)
[2024-06-08] MEDS: ATENOLOL 25 MG TABLET PO SCH (11:46)
--- NOTE | 2024-06-09 06:59 | Discharge Summary ---
Date of Service June 09, 2024 Admission HPI Per Admitting Provider Michael Reich is a 63yo M w PMH notable for CAD s/p 2 stents, HLD, HTN, hernia s/p partial bowel resection, and SBO who presents to the ED due to LLQ abd pain and vomiting. H/o hernia repair w 6 inches of bowel removed; has had SBO in the past, likely 2/2 adhesions from that surgery. Seen here 7m ago for diffuse abd pain; EGD & colonoscopy done, found multiple duodenal ulcers and a benign- appearing colon polyp. He reports his current symptoms started 3 days ago. He initially assumed he had the flu; says he should've realized sooner due to familiar sx and no other flu- like sx. He came in today because he couldn't stand it anymore. He has been unable to keep anything down, including his medications, and the vomiting and abd pain have resulted in fatigue, CP, SOB, cough. Has not had a BM in 2 days, did not note any bloody or black stool, is still passing flatus. He also notes faint bruising across abdomen, a/w blood thinner use and is not concerned about it. He has not noted blood in the emesis. He denies any other complaints at this time. Principal Diagnosis Small Bowel Obstruction Discharge Exam Constitutional WD/WN, vitals as above Eyes PERRL, conjunctivae normal, anicteric sclerae Respiratory normal respiratory effort, lungs clear to auscultation Cardiovascular Rate/Rhythm: regular rhythm and + tachycardic Heart Sounds: normal S1 and normal S2; no murmur Gastrointestinal (Abdomen) Inspection/Auscultation: normal bowel sounds and + abdominal surgical scar Percussion/Palpation: abdomen nontender and no guarding Musculoskeletal Head/Neck/Chest: normocephalic and head atraumatic Extremities: extremities normal to inspection Skin no rashes, warm and dry Neurologic PERRL, EOMI, accommodation nl, no face palsy, no dysarthria Psychiatric A+Ox3, euthymic affect Discharge Data Allergies Allergy/AdvReac Type Severity Reaction Status Date / Time adhesive Allergy Intermediate SKIN Verified 06/06/24 18:12 IRRITATION Consultations 06/06/24 22:27 ED Decision to Admit Stat 06/07/24 00:30 Consult General Surgery Routine Ordered Studies 06/06/24 18:11 CT abd pelvis IV con only Stat Hospital Course (1) SBO (small bowel obstruction): (2) HLD (hyperlipidemia): (3) HTN (hypertension): (4) Duodenitis: Plan Mr Reich is a 63yo amle with PMH of CAD s/p 2 stents, HLD, HTN, hernia s/p partial bowel resection, and SBO who presents to the ED due to abd pain and vomiting. SBO - Intractable vomiting + LLQ abd pain x3d hx of prior SBO, likely secondary to adhesions from hernia repair. CTAP 06/06 showed distal high-grade small bowel obstruction. In ED afebrile, WBC 21. He was given 4.5g IV Zosyn, NGT placed, put on strict NPO and IVF. Pt progressed to full liquid diet on 06/08. Pt tolerated well, without nausea, vomiting or abdominal pain. - Zofran as needed for nausea HLD - Resume rosuvastatin 10mg qHS HTN - Atenolol 25mg and lisinopril 10mg PO daily - Monitor vitals Duodenal ulcer/hx of GI bleed - continue Protonix 40 mg BID Total Time Total Time Spent Total Time Spent (In Minutes): <30 Discharge Plan Discharge Items Patient Disposition: Home - Self-Care Reason For Visit: SBO Discharge Diagnosis: Small Bowel Obstruction Activity: Resume your previous activity Non-emergency contact: Primary Care Provider Call non-emergency contact if: your symptoms worsen Follow-up/Referrals: Rakesh Martinez DO [Surgeon] - Roselyn Lange PA-C [Primary Care Provider] - Diet: Regular Addtl Attending Provider Instructions: You were admitted to the hospital for: Small Bowel Obstruction A discharge summary will be sent to your primary care physician to ensure continuity of care. Please bring this discharge summary with you to your next office appointment so that your provider can review it at that time. Medications: Your medication list has been reviewed and reconciled upon discharge to ensure accuracy and continuity of care. An updated list of all your medications is included with your hospital discharge paperwork. Please review this list closely and make note of any changes to your medications. Follow up appointments: - Make a follow up appointment with your PCP within the next week. It is very important that you follow up with them shortly after discharge from the hospital. - Keep all of your follow up appointments as already scheduled. If you cannot make an appointment, notify your provider. CONTACT YOUR PRIMARY CARE PROVIDER if you experience any of the following: - Difficulty following your treatment plan - Difficulty taking any of your medications CALL 911 OR GO TO THE EMERGENCY DEPARTMENT if you experience any of the following: - Sudden, severe abdominal pain or nausea/vomiting - Severe chest pain or chest pain that radiates to your jaw or arm - Sudden, severe shortness of breath or difficulty breathing Pending Studies at Discharge: No Stand-Alone Forms: [facility], Smoking Cessation Medications and DC Order Prescriptions: Continued ferrous sulfate 325 mg (65 mg iron) tablet 325 mg PO DAILY sennosides [senna] 8.6 mg tablet 17.2 mg PO QPM atenolol 25 mg tablet 25 mg PO DAILY clopidogrel 75 mg tablet 75 mg PO DAILY aspirin 81 mg tablet,delayed release (DR/EC) 81 mg PO DAILY lisinopril 5 mg tablet 10 mg PO DAILY gabapentin 100 mg capsule 100 mg PO TID metoclopramide HCl 10 mg tablet 10 mg PO ACHS rosuvastatin 10 mg tablet 10 mg PO HS duloxetine 60 mg capsule,delayed release(DR/EC) 30 mg PO DAILY pantoprazole [Protonix] 40 mg tablet,delayed release (DR/EC) 40 mg PO BID Qty: 60 0RF sucralfate [Carafate] 1 gram tablet 1 g PO ACHS Qty: 60 0RF Admission Data Admit Date/Time: 06/06/24 23:21 Attending Provider: Terry Pretty Admit Provider: Harleen Rene Primary Care Provider: Roselyn Lange Other Providers: Roger Dalton; Rad Bettencourt Supervising Physician Co-Signing Physician Notes I personally examined the patient and verified all albrecht points of history and exam, discussed case, and agree with decision making with Dr Rich feeling better feels up to going home. seen at the same time as general surgery - input greatly appreciated vitals noted nad heent nc at mmm breathing unlabored no accessory muscles good effort skin no rashes no pallor or icterus recurrent (adhesional) SBO - stable for home. given frequency of recurrence - close and ongoing outpt surgical f/u. for now hydration and weight loss, but ultimately may need surgical intervention depending on penitentiary course. Resident Activity Tracking Resident Involvement: Resident Care Provided Care Provided: [facility] Medicine
--- NOTE | 2024-06-09 10:18 | Surgery Progress Note ---
Date of Service June 09, 2024 Assessment & Plan (1) SBO (small bowel obstruction): Plan: resolved. ok for d/c from my standpoint. recommend he lose weight and stay hydrated. if these recurrences continue may need to consider exploration with release of (likely) adhesions. (2) HTN (hypertension): Admission and Anticipated Discharge Date Admission Date: June 06, 2024 Subjective pt feeling much better. no pain or nausea. +bm's. elisha diet. wants to go home Physical Exam Constitutional: WD/WN, vitals as above no acute distress and not ill appearing Eyes: PERRL, conjunctivae normal, anicteric sclerae EOM intact bilaterally ENMT: external ear and nose normal, oropharynx normal Ears: no hearing impairment Neck: trachea midline, no thyromegaly Respiratory: normal respiratory effort; no respiratory distress and does not use accessory muscles Cardiovascular: Rate/Rhythm: regular rate and regular rhythm Gastrointestinal (Abdomen): obese. soft. nt. Skin: no rashes, warm and dry Psychiatric: Orientation: alert, oriented x 3 and cooperative Results & Data Vital Signs (Past 12 Hours) Vital Signs Temp Pulse Resp BP Pulse Ox O2 Del Method 06/09/24 07:13 36.8 C 84 17 128/81 96 Room Air PG Care Time/CCT Total # of Minutes Spent Total Time Spent with Patient: Total time spent is greater than 50% in coordination of care (as documented) at patient's floor/unit and/or counseling patient: Coding Level of Care Code 39131 SUB INP/OBS CARE 2/35MIN Diagnoses SBO (small bowel obstruction) K56.609 HTN (hypertension) I10
--- NOTE | 2024-06-09 12:24 | Billing Data ---
Date of Service June 09, 2024 Coding Level of Care Code 24201 IN/OBS DISCH 30 MIN/LESS
[2024-06-09 15:00] VITALS: BP 142/88; PULSE 66; RESP 18; TEMP 98.6; O2SAT 97
--- NOTE | 2024-06-11 05:54 | Electrocardiogram Report ---
Test Reason : Blood Pressure : */* mmHG Vent. Rate : 86 BPM Atrial Rate : 86 BPM P-R Int : 156 ms QRS Dur : 104 ms QT Int : 390 ms P-R-T Axes : 65 14 128 degrees QTcB Int : 466 ms Normal sinus rhythm Poor R wave progression, consider anterior ID vs. lead placement vs. LVH Abnormal ECG When compared with ECG of 30-Oct-2023 21:21, Nonspecific T wave abnormality no longer evident in Inferior leads T wave inversion less evident in Anterolateral leads Confirmed by James Casiano ([id number]) on 06/11/2024 5:54:19 AM Referred By: REFERRED SELF Confirmed By: James Casiano
== END 2024-06-09 16:19 | disposition home or self-care (01) | DRG 389 ==
LOC: ED 17:06 → 3W 23:21 → SUATTDRO 23:21 → 3W 23:57

== ENCOUNTER 2024-07-31 07:29 | Observation (INO) ==
--- NOTE | 2024-07-22 13:16 | Anesthesiology Consultation ---
Date of Service July 22, 2024 Assessment & Plan (1) Encounter for pre-operative examination: Chart Review Chart Review: Acceptable Risk for Surgery and Patient NOT seen in Pre Admission Testing - Plavix and ASA instructions per surgeon/prescribing provider discretion -Infectious Disease screening: Per PAT nursing assessment on 07/22/24. No known infectious disease contacts in past 10 days or current infectious disease symptoms. No recent travel outside the country. History Surgery Operation Date: 07/31/24 13:10 Proposed Procedures p Diagnostic Laparocsopic, Lysis of Adhesions - Rakesh Martinez, Height/Weight Height: 5 ft 9 in Weight: 124.284 kg Allergies Allergy/AdvReac Type Severity Reaction Status Date / Time adhesive Allergy Intermediate Skin Verified 07/22/24 10:46 Irritation Medications Home Medications Medication Instructions Recorded Confirmed Last Taken aspirin 81 mg tablet,delayed 81 mg PO QAM 10/30/23 07/22/24 Unknown release atenolol 25 mg tablet 25 mg PO QAM 10/30/23 07/22/24 Unknown clopidogrel 75 mg tablet (Plavix) 75 mg PO QAM 10/30/23 07/22/24 Unknown duloxetine 60 mg capsule,delayed 60 mg PO QAM 10/30/23 07/22/24 Unknown release gabapentin 100 mg capsule 100 mg PO TID 10/30/23 07/22/24 Unknown (Neurontin) metoclopramide HCl 10 mg tablet 10 mg PO ACHS 10/30/23 07/22/24 Unknown rosuvastatin 10 mg tablet (Crestor) 10 mg PO QAM 10/30/23 07/22/24 Unknown ferrous sulfate 325 mg (65 mg 325 mg PO QDL 06/06/24 07/22/24 Unknown iron) tablet lisinopril 10 mg tablet 10 mg PO QAM 07/22/24 07/22/24 Unknown pantoprazole 40 mg tablet,delayed 40 mg PO HS 07/22/24 07/22/24 Unknown release (Protonix) sucralfate 1 gram tablet (Carafate) 1 g PO TID 07/22/24 07/22/24 Unknown Past Medical History Medical History (Updated 07/22/24 @ 13:27 by Rosa M Mcgraw PA-C) CAD (coronary artery disease) x2 stents 01/01/2017 [facility] - 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 Duodenitis "found with my EGD" History of kidney stones "I had them but they couldn't find them" HLD (hyperlipidemia) HTN (hypertension) Hx of nausea and vomiting only with bowel obstructions - no issues at this time Hx SBO - most recent 06/06/24 - admitted to [facility]- likely secondary to adhesions per records - 4-5x within last 1.5 - 2 years as per patient Obesity PONV (postoperative nausea and vomiting) remote history Past Family History Family History Other Family history non-contributory Past Surgical History Surgical History History of total hip arthroplasty Right "It was replaced 3 or 4 times" History of total knee arthroplasty Bilateral Hx of cardiac catheterization x2 stents 01/01/2017 [facility] - 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 Hx of colonoscopy (10/2023) Hx of esophagogastroduodenoscopy (10/2023) Hx of exploratory laparotomy with partial bowel resection and hernia repair S/P colectomy Social History Smoking Status: Never smoker Smoking cigarettes per day: 1 Do You Dip or Chew Tobacco: No Hx Alcohol Use: No Hx Substance Use: No substance use type: does not use Lab Results Anesthesia Preop Results Results Anesthesia Widget: WBC 8.56 K/ul (4.8-10.8) 06/08/24 Hgb 13.3 g/dl (14.0-18.0) L 06/08/24 Hct 46.9 % (42.0-52.0) 06/08/24 Plt 177 K/uL (130-400) 06/08/24 Na 143 mmol/L (136-145) 06/08/24 K 3.7 mmol/L (3.5-5.1) 06/08/24 Cl 115 mmol/L (98-107) H 06/08/24 CO2 21 mmol/L (21-32) 06/08/24 BUN 36 mg/dl (6-23) H 06/08/24 Creat 1.35 mg/dl (0.6-1.4) 06/08/24 Glucose Level 80 mg/dl (70-99(Fasting)) 06/08/24 PT 11.4 Seconds (9.0-12.0) 06/06/24 INR 1.1 (0.9-1.1) 06/06/24 Urine Color Dark Yellow 06/06/24 Urine Appearance Cloudy (Clear) A 06/06/24 Urine pH 5.0 (4.5-7.5) 06/06/[address] 1.035 (1.000-1.030) H 06/06/24 Urine Protein 2+ (Negative) H 06/06/24 Urine Glucose (UA) Negative (Negative) 06/06/24 Urine Ketones 1+ (Negative) H 06/06/24 Urine Blood Negative (Negative) 06/06/24 Urine Nitrite Negative (Negative) 06/06/24 Urine Bilirubin 2+ (Negative) H 06/06/24 Urine Urobilinogen Negative (Negative) 06/06/24 Urine Leukocyte Esterase Trace (Negative) H 06/06/24 Urine WBC (Auto) 0-5 /hpf (0-5) 06/06/24 Urine RBC (Auto) 0-2 /hpf (0-2) 06/06/24 Urine Hyaline Casts (Auto) >20 /lpf (0-2) H 06/06/24 Urine Epithelial Cells (Auto) 3-5 /hpf (0-2) H 06/06/24 Urine Bacteria (Auto) None Seen (None Seen) 06/06/24 Testing Electrocardiogram Date: 06/06/24 Findings: + NSR @ (86bpm ) Poor R wave progression, consider anterior NM vs lead placement vs LVH ST and T wave abnormality, consider lateral ischemia When compared to EKG from October 30, 2023- nonspecific T wave abnormality no longer evident in inferior leads, T Wave inversion less evident in anterolateral leads per cardio (Discussed with Dr. Pérez- patient with ECHO 11/01/23 with normal EF and no RWMA, patient can do flight of stairs with mild SOB only due to joint pain- no chest pain per PAT nursing- patient can proceed as scheudled) Chest X-Ray Date: 10/30/23 Findings: + NAD FINDINGS: No lines and tubes are seen. The cardiomediastinal silhouette is normal. Lungs are underinflated but clear. No evidence of pleural effusion or pneumothorax. Echocardiogram Date: 11/01/23 EF: 55-60% LV Function: normal RWMA: + none Other Findings: + diastolic dysfunction (Type I ); no LVH Valvular Disease: + no significant valvular disease Mildly dilated LV with normal systolic function Severe left atrial dilation Normal estimated RVSP Other Testing Abdomen/Pelvis CT 06/06/24= Distal high-grade small bowel obstruction
[~2024-07-31 07:29] MED LIST: LIDOCAINE 2% 2 ML VIAL/AMP(20MG/ML) INFIL ONE
[2024-07-31] MEDS: LR 15ML/HR IV SCH (08:30)
--- NOTE | 2024-07-31 08:43 | History & Physical Bridge Note ---
Date of Service July 31, 2024 History & Physical Bridge Note I have examined the patient, reviewed the History & Physical and in the interval since the performance of the History & Physical I have noted the following changes of clinical significance: no changes noted
[2024-07-31] MEDS ORDERED: DEXAMETHASONE SOD INJ 4 MG/ML VIAL ONE (09:13)
[2024-07-31] MEDS ORDERED: LIDOCAINE 2% 2 ML VIAL/AMP(20MG/ML) INFIL ONE (09:13)
[2024-07-31] MEDS ORDERED: MIDAZOLAM HCL 1 MG/ML 2ML VIAL ONE (09:13)
[2024-07-31] MEDS ORDERED: fentaNYL citrate PF 100 MCG/2 ML VIAL ONE (09:13)
[2024-07-31] MEDS ORDERED: ONDANSETRON INJ 2 MG/ML 2 ML VIAL ONE (09:13)
[2024-07-31] MEDS ORDERED: PROPOFOL IV EMULSION 10 MG/ML 20 ML VIAL IV ONE ×2 (09:13→10:54)
[2024-07-31] MEDS ORDERED: ROCURONIUM BROMIDE 10 MG/ML 5 ML VIAL IV ONE ×2 (09:13→10:31)
[2024-07-31] MEDS ORDERED: ONDANSETRON INJ 2 MG/ML 2 ML VIAL IV PRN ×2 (09:45→15:18)
[2024-07-31] MEDS ORDERED: ATROPINE SULFATE 0.1 MG/ML 10ML SYR IV PRN (09:45)
[2024-07-31] MEDS ORDERED: ePHEDrine sulfate 50 MG/ML AMP IV PRN (09:45)
[2024-07-31] MEDS: ceFAZolin 3000MG 3,000 MG/72.5 ML BAG IV SCH (10:06)
[2024-07-31] MEDS ORDERED: SUCCINYLCHOLINE CHLORIDE 20 MG/ML 10 ML VIAL IV ONE (10:07)
[2024-07-31] MEDS ORDERED: PHENYLEPHRINE HCL 10 MG/ML VIAL ONE (10:27)
[2024-07-31] MEDS ORDERED: ePHEDrine sulfate 50 MG/ML AMP ONE (10:40)
[2024-07-31] MEDS ORDERED: ACETAMINOPHEN 1000 MG/100 ML IV IV ONE (11:23)
[2024-07-31] MEDS ORDERED: SUGAMMADEX SODIUM 200 MG/2 ML VIAL IV ONE ×2 (11:25→12:11)
[2024-07-31] MEDS: BUPIVACAINE/EPINEPHRINE 0.5% MPF 1:200,000 30 ML VIAL ONE (12:01)
--- NOTE | 2024-07-31 12:13 | Post Operative Brief Note ---
PG Immediate Post Op with CF Date of Surgery July 31, 2024 Pre & Post Diagnosis Operation Date: 07/31/24 09:50 Pre-Op Diagnosis: Nausea with Vomiting, Bowel obstruction Post-Op Diagnosis: Partial small bowel obstruction, adhesions, incisional hernia I identified the patient and participated in the time-out.: Yes Procedure Operation Date: 07/31/24 09:50 Actual Procedures p Laparoscopy convert to open, partial small bowel resection, repair incisional hernia, enterolysis(Not Applicable) - Rakesh Martinez DO Surgeon Rakesh Martinez DO Loan Counselor oneil Caal Estimated Blood Loss 25 Findings Consistent with Post-Op Diagnosis Specimens Specimen Description: No specimen per surgeon Drains Hook Catheter
[2024-07-31] MEDS: fentaNYL citrate PF 100 MCG/2 ML VIAL IV PRN (12:50)
--- NOTE | 2024-07-31 13:45 | Operative Report ---
PG Post Operative Report Pre & Post Diagnosis Operation Date: 07/31/24 09:50 Pre-Op Diagnosis: Nausea with Vomiting, Bowel obstruction Post-Op Diagnosis: Partial bowel obstruction, adhesions, incisional hernia I identified the patient and participated in the time-out.: Yes Procedure Operation Date: 07/31/24 09:50 Actual Procedures p Laparoscopy convert to open, partial small bowel resection, repair incisional hernia, enterolysis(Not Applicable) - Rakesh Martinez DO Surgeon Rakesh Martinez DO Bath Steward/Stewardess oneil Caal Estimated Blood Loss 25 Findings Consistent with Post-Op Diagnosis Specimens none Description of Procedure After informed consent was obtained the patient was taken to the operating room and placed in supine position. After successful intubation the abdomen was shaved and sterilely prepped and draped in usual fashion. Prior to the draping a Hook catheter had been inserted sterilely as was an orogastric tube. I began by making an incision in the left upper quadrant using an 11 blade scalpel. This was carried down through the soft tissue using cautery. The anterior fascia was opened using cautery and two #0 Vicryl stay sutures were placed. Peritoneum was elevated with hemostats and incised under direct vision using a Metzenbaum scissor. Finger sweep was performed. A 12 mm Lema trocar was placed and the abdomen was insufflated to 20 mmHg. The laparoscope was inserted and the abdomen was examined in 360 degrees. The site of his previous issues wa s readily apparent. In the midline just above the umbilicus of his old midline scar was a segment of small bowel tightly adherent to the skin through a small hernia defect. This was clearly the site of his prior obstructions. There was no evidence of any other adhesions or small bowel abnormalities throughout the abdomen. Initially I felt he might be able to lyse these adhesions laparoscopically. 2 left mid abdominal 5 mm trocars were placed under direct vision. I began by placing light traction on the bowel and using blunt dissection as well as sharp scissor lysis the try and take the bowel down off of the abdominal wall/undersurface of the skin. However the small bowel was essentially to the abdominal wall. This necessitated me sharply lysing the bowel at this point/purposely causing serosal damage. it became apparent a partial small bowel resection would be needed I therefore converted to a small laparotomy incision. I made a small incision just superior to the hernia defect/site of the partial small bowel obstruction. I opened the fascia to both poles using cautery. I freed up the bowel using finger fractionation and sharp scissor lysis. I was then able to use my fingers to deliver the small bowel 1 to the abdominal wall. The hernia defect measured probably 3-1/2 cm. Once I had taken down the small bowel from the anterior abdominal wall and I was better able to analyze it. There were some clear serosal tears and the mesentery itself was not healthy either therefore I decided to resect the small portion of small bowel. A Head Held High BRINA linear stapler was used to transect the small bowel on either side of the damaged portion. The total resection length of the small bowel would be about 5 inches. After transecting the small bowel I used a harmonic scalpel to take down the mesentery. The resected portion was passed off. I then used a BRINA brown cartridge linear stapler to perform a [id number] small bowel anastomosis. The common enterotomy was closed with a handsewn technique using 3-0 Monocryl for serosal/mucosal layers in running fashion. This was followed by 3-0 silk in interrupted fashion using Lembert technique. I also used 3-[address] a crotch stitch. 2-0 Vicryl was then used to close the mesenteric defect. The anastomosis was widely patent. There was adequate hemostasis and no evidence of any ischemia. This was then placed back into the abdomen. I then closed the fascial defect including the hernia using a #1 looped PDS starting at the superior pole and running this to the inferior pole. There is still somewhat of a weak spot in the midportion of this and therefore I used #1 Ethibond in simple erupted fashion to reinforce these areas. The wound was then thoroughly irrigated. We re-insufflated the abdomen and reinserted the camera to look around. There was adequate hemostasis. The hernia defect was well-closed and the small bowel looked healthy. There were no other gross abnormalities. The trocars were all removed and the abdomen desufflated. The fascia the camera port was closed using 0 Vicryl in [id number] fashion. All the wounds were irrigated and closed using skin mary. Silver Acticoat gauze and tape were used as a dressing. An abdominal binder was also placed. The patient was awakened extubated and transferred to recovery in stable condition. My physician printing assistant was present for the entire case and was instrumental in assisting with access to the abdomen, running the camera, assisting with the small bowel resection, hernia/fascial closure wound closure and dressing placement. I attest to the content of the Intraoperative Record and any orders documented therein. Any exceptions are noted below.
--- NOTE | 2024-07-31 14:32 | Anesthesiology Progress Note ---
Date of Service July 31, 2024 Anesthesia Post Procedure Vital Signs Vital Signs: Temp Pulse Pulse Resp BP Pulse Ox O2 Del Method 07/31/24 14:20 89 17 144/97 H 95 Nasal Cannula 07/31/24 14:00 90 18 151/93 H 95 Nasal Cannula 07/31/24 13:50 36.5 C 83 18 154/94 H 93 Nasal Cannula 07/31/24 13:40 85 17 150/93 H 93 Nasal Cannula 07/31/24 13:30 81 19 151/94 H 93 Nasal Cannula 07/31/24 13:20 84 13 154/88 H 93 Nasal Cannula 07/31/24 13:10 79 17 165/96 H 92 Nasal Cannula 07/31/24 13:00 79 19 164/98 H 92 Nasal Cannula 07/31/24 12:50 79 20 172/98 H 92 Nasal Cannula 07/31/24 12:40 77 20 176/105 H 96 Oxymask 07/31/24 12:30 80 20 175/98 H 96 Oxymask 07/31/24 12:22 36.4 C L 83 21 179/100 H 91 Oxymask 07/31/24 08:00 36.7 C 88 20 154/107 H 94 Room Air O2 Flow Rate 07/31/24 14:20 2 07/31/24 14:00 2 07/31/24 13:50 2 07/31/24 13:40 2 07/31/24 13:30 2 07/31/24 13:20 2 07/31/24 13:10 2 07/31/24 13:00 2 07/31/24 12:50 2 07/31/24 12:40 10 07/31/24 12:30 10 07/31/24 12:22 10 07/31/24 08:00 Pain Intensity Abdomen: Pain Intensity: 4 Transfer of Care Handoff Completed per policy Notes Mental Status: alert / awake / arousable and participated in evaluation Nausea / Vomiting: adequately controlled Pain: adequately controlled Airway Patency, RR, SpO2: stable & adequate BP & HR: stable & adequate Hydration State: stable & adequate Anesthetic Complications: no major complications apparent and Pt Satisfied with anesthetic care
[2024-07-31] MEDS ORDERED: ARTIFICIAL TEARS OPB PRN (14:37)
[2024-07-31] MEDS ORDERED: MoRPHine SULFATE 2 MG/ML CARP IV PRN (15:18)
[2024-07-31] MEDS ORDERED: MoRPHine SULFATE 4 MG/ML 1 ML CARP\\VIAL IV PRN (15:18)
[2024-07-31] MEDS ORDERED: oxyCODONE HCL IR 5 MG TAB (IMMEDIATE RELEASE) PO PRN (15:18)
[2024-07-31] MEDS: oxyCODONE HCL IR 5 MG TAB (IMMEDIATE RELEASE) PO PRN (15:32)
[2024-07-31] MEDS: SODIUM CHLORIDE 0.9% 1,000 ML IV SCH (15:32)
[2024-07-31] MEDS: ACETAMINOPHEN 1,000 MG/100 ML VIAL IV SCH (15:32)
[2024-07-31] MEDS: cefOXitin 2,000 MG in DEXTROSE 5 % MINI-B 50 ML IV SCH (16:24)
[2024-07-31] MEDS: GABAPENTIN 100 MG CAP PO SCH (16:25)
[2024-07-31] MEDS: PANTOprazole 40 MG TAB PO SCH (21:30)
[2024-08-01 06:28] LABS: Basophils # (auto) 0.01 K/uL (0.00-0.20); Basophils % (auto) 0.1 %; Hematocrit (blood only) 45.1 % (42.0-52.0); Hemoglobin 13.6 g/dl (14.0-18.0); Immature Granulocytes # (auto) 0.04 K/uL (0.01-0.20); Immature Granulocytes % (auto) 0.3 %; Lymphocytes # (auto) 1.03 K/uL (1.20-3.40); Lymphocytes % (auto) 8.8 %; Mean Corpuscular Hemoglobin 24.9 pg (25.0-34.0); Mean Corpuscular Hgb Conc 30.2 g/dL (32.0-36.0); Mean Corpuscular Volume 82.6 fL (80.0-100.0); Mean Platelet Volume 10.3 fL (9.4-12.4); Monocytes # (auto) 0.71 K/uL (0.11-0.59); Monocytes % (auto) 6.1 %; Neutrophils # (auto) 9.87 K/uL (1.40-6.50); Neutrophils % (auto) 84.7 %; Platelet Count 223 K/uL (130-400); RDW Coefficient of Variation 15.5 % (11.5-14.5); RDW Standard Deviation 46.3 fL (36.4-46.3); Red Blood Count 5.46 M/uL (4.70-6.10); White Blood Count 11.66 K/ul (4.8-10.8)
[2024-08-01 06:36] LABS: BUN Creatinine Ratio 18.8 (10-20); Calcium 8.7 mg/dl (8.6-10.3); Creatinine Clr Calc Pharmacy 104.4 ml/min; Potassium 4.6 mmol/L (3.5-5.1)
[2024-08-01] MEDS: ATENOLOL 25 MG TABLET PO SCH (07:48)
[2024-08-01] MEDS: DULoxetine HCL 60 MG CAP PO SCH (07:48)
--- NOTE | 2024-08-01 08:10 | Surgery Progress Note ---
Date of Service August 01, 2024 Assessment & Plan (1) S/P small bowel resection: Plan: Patient is POD #1 s/p laparoscopy converted to open, partial small bowel resection, repair of incisional hernia and enterolysis by Dr. Martinez -Patient doing well, tolerating clears without issue, and passing gas -Will advance to full liquids today -Vitals stable, labs wnl with no concerns -Continue pain control -Encourage OOB and ambulation throughout the day -Daily dressing changes -Will hold patient's ASA and Plavix until Sunday (08/03/2024) -Will anticipate possible discharge tomorrow if patient continues to do well -[facility] elevator constructor hydraulic over the weekend as above. doing well. will advance to fulls possible d/c tomorrow if he continues to do well. resume anticoagulation sunday Admission and Anticipated Discharge Date Admission Date: July 31, 2024 Subjective Patient is POD #1 s/p laparoscopy converted to open, partial small bowel resection, repair of incisional hernia and enterolysis. -Patient doing well this morning -Pain currently well controlled, tolerating clears without any issues of abdominal pain, nausea or vomiting . -Passing gas however no reported BM yet -Vitals stable -Afebrile and WBC wnl, denies fevers or chills Physical Exam Constitutional: WD/WN, vitals as above Respiratory: normal respiratory effort, lungs clear to auscultation Cardiovascular: RRR, no murmur, no edema Gastrointestinal (Abdomen): Abdomen soft, nondistended, appropriate TTP over surgical sites without any rebound or guarding. Surgical dressing removed, incisions with mary in place, sites are c/d/i without overlying signs of infection. Skin: no rashes, warm and dry Results & Data Vital Signs (Past 12 Hours) Vital Signs Temp Pulse Resp BP BP Pulse Ox O2 Del Method 08/01/24 07:22 36.6 C 66 18 179/97 H 95 Room Air 08/01/24 03:39 72 08/01/24 03:35 36.6 C 48 L 18 130/73 92 Room Air 07/31/24 23:00 36.6 C 87 18 136/94 91 Room Air PG Care Time/CCT Total # of Minutes Spent Total Time Spent with Patient: Total time spent is greater than 50% in coordination of care (as documented) at patient's floor/unit and/or counseling patient: Coding Level of Care Code 90959 Post Operative Follow-Up Diagnoses S/P small bowel resection Z90.49
[2024-08-01] MEDS ORDERED: CHLORASEPTIC (PHENOL) 1.4% SOLN 180 ML BTL MT PRN (08:22)
[2024-08-01 15:10] VITALS: RESP 16
[2024-08-02 07:26] LABS: Basophils # (auto) 0.04 K/uL (0.00-0.20); Basophils % (auto) 0.5 %; Eosinophils # (auto) 0.01 K/uL (0.00-0.50); Eosinophils % (auto) 0.1 %; Hemoglobin 12.7 g/dl (14.0-18.0); Immature Granulocytes # (auto) 0.02 K/uL (0.01-0.20); Immature Granulocytes % (auto) 0.3 %; Lymphocytes # (auto) 1.71 K/uL (1.20-3.40); Mean Corpuscular Hgb Conc 30.2 g/dL (32.0-36.0); Mean Corpuscular Volume 82.8 fL (80.0-100.0); Mean Platelet Volume 9.7 fL (9.4-12.4); Monocytes # (auto) 0.57 K/uL (0.11-0.59); Monocytes % (auto) 7.3 %; Neutrophils # (auto) 5.41 K/uL (1.40-6.50); Neutrophils % (auto) 69.8 %; Platelet Count 157 K/uL (130-400); RDW Coefficient of Variation 15.5 % (11.5-14.5); RDW Standard Deviation 46.4 fL (36.4-46.3); Red Blood Count 5.07 M/uL (4.70-6.10); White Blood Count 7.76 K/ul (4.8-10.8)
[2024-08-02 07:46] VITALS: BP 165/96; PULSE 62; TEMP 97.7; O2SAT 92
[2024-08-02 08:01] LABS: BUN Creatinine Ratio 17.2 (10-20); Calcium 8.8 mg/dl (8.6-10.3); Creatinine Clr Calc Pharmacy 115.2 ml/min; Potassium 4.6 mmol/L (3.5-5.1)
--- NOTE | 2024-08-02 10:11 | Discharge Summary ---
Date of Service August 02, 2024 Admission HPI Per Admitting Provider Patient with recurrent SBO presents for diagnostic lap and possible MALLORY. Principal Diagnosis Recurrent SBO Discharge Exam Constitutional WD/WN, vitals as above Neck trachea midline Respiratory normal respiratory effort, lungs clear to auscultation Cardiovascular RRR, no murmur, no edema Gastrointestinal (Abdomen) Inspection/Auscultation: abdomen normal to inspection, normal bowel sounds and + abdominal surgical incision (clean and dry); abdomen not distended Percussion/Palpation: + abdomen tender and abdomen soft Musculoskeletal Head/Neck/Chest: normocephalic and head atraumatic Skin no rashes, warm and dry Discharge Data Allergies Allergy/AdvReac Type Severity Reaction Status Date / Time adhesive Allergy Intermediate Skin Verified 07/31/24 08:05 Irritation Procedures Performed Operation Date: 07/31/24 09:50 Actual Procedures p Laparoscopy convert to open, partial small bowel resection, repair incisional hernia, enterolysis(Not Applicable) - Rakesh Martinez DO s Convert to open, partial small bowel resection, repair incisional hernia, enterolysis(Not Applicable) - Rakesh Martinez DO Hospital Course (1) S/P small bowel resection: Patient admitted after ex lap with lysis of adhesions and SB resection. He progressed well with diet and activity. His pain was controlled and bowel function returned. He will be discharged on low fiber diet and activity instructions given. Total Time Total Time Spent Total Time Spent (In Minutes): 15 Discharge Plan Discharge Items Patient Disposition: Home - Self-Care Reason For Visit: Nausea with Vomiting, Partial Small Bowel Discharge Diagnosis: diagnostic laparoscopy converted to open, partial small bowel resection, ventral hernia repair, lysis of adhesions Activity: Per Instructions section Lifting: No more than 10 pounds Bathing Comment: may shower; no soaking in tubs/pools x 2 weeks Exercise/Sports: Wait until after follow-up appointment Driving/Machine Use: no driving while taking narcotics for pain Non-emergency contact: Surgeon Call non-emergency contact if: you have any medication questions, your symptoms worsen, your pain is not controlled, you have a fever, your temperature is above 101.5, your wound has increased redness, your wound has increased drainage and your wound pain has increased Follow-up/Referrals: Rakesh Martinez DO [Surgeon] - (call office for follow up in 2 weeks ) Roselyn Lange PA-C [Primary Care Provider] - Diet: Low Fiber Addtl Attending Provider Instructions: You can resume your Aspirin and Plavix on 08/03/2024 SPECIAL CARE INSTRUCTIONS: *Dressing: You have surgical mary in place that should be removed around 2 weeks from your surgical date in the office. You may keep the covered if you wish for comfort or to collect any small drainage, if you cover them change the dressing daily and as needed with dry 4x4 gauze and medipore tape. *You also will be sent home with an abdominal binder. Wear this day and night until your follow up with the surgeon. You may remove it for showering and small breaks from it if needed * You may shower 08/02 . NO soaking in baths, pools or hot tubs for 2 weeks * No lifting greater than 10lbs. No exercise until cleared by surgeon. Light walking is accepted. * No driving while taking narcotic pain medication * No drinking alcohol while taking narcotic pain medication * May use Tylenol over the counter for pain as tolerated. Do not exceed 3grams of Tylenol per 24 hours * Expect some swelling and bruising. * Diet low fiber diet Call your doctor if: * Temperature above 101 degrees, nausea/vomiting, fever/chills * Pain not relieved by pain medicine ordered * There is increased drainage or redness from any incision * You have any unanswered questions or concerns [phone]. FOLLOW UP VISIT: If not already scheduled, please call the office for a follow-up visit. Office Pending Studies at Discharge: Yes Studies:: surgical pathology Stand-Alone Forms: My [facility] Medications and DC Order Prescriptions: New oxycodone 5 mg tablet 5 - 10 mg PO .[id number] PRN (Reason: pain, for initial therapy, max 6 tabs per day) Qty: 15 0RF Continued ferrous sulfate 325 mg (65 mg iron) tablet 325 mg PO QDL lisinopril 10 mg tablet 10 mg PO QAM sucralfate [Carafate] 1 gram tablet 1 g PO TID Rx Instructions: Before meals pantoprazole [Protonix] 40 mg tablet,delayed release (DR/EC) 40 mg PO HS atenolol 25 mg tablet 25 mg PO QAM clopidogrel [Plavix] 75 mg tablet 75 mg PO QAM aspirin 81 mg tablet,delayed release (DR/EC) 81 mg PO QAM gabapentin [Neurontin] 100 mg capsule 100 mg PO TID metoclopramide HCl 10 mg tablet 10 mg PO ACHS rosuvastatin [Crestor] 10 mg tablet 10 mg PO QAM duloxetine 60 mg capsule,delayed release(DR/EC) 60 mg PO QAM Discharge Orders: Discharge Order (Routine); Ordered 08/02/24 Ordered By: Suhas Mckay Admission Data Admit Date/Time: 07/31/24 11:53 Attending Provider: Rakesh Martinez Admit Provider: Rakesh Martinez Primary Care Provider: Roselyn aLnge
== END 2024-08-02 15:15 | disposition home or self-care (01) ==
LOC: ASU 07:29 → INTOOBSV 11:53 → 3E 11:53